=== PATIENT | female | born 1940 | race Caucasian/White ===

== ENCOUNTER 2020-06-11 13:53 | Emergency (ER) | payer MEDICARE ==
[2020-06-11] MEDS ORDERED: Acetaminophen-Codeine 300-30mg TAB PO STA (14:15)
--- NOTE | 2020-06-11 14:17 | ED ---
Fall HPI - General Chief Complaint: Fall Stated Complaint: Fall Time Seen by Provider: 06/11/20 13:57 Source: patient, EMS Mode of arrival: EMS - History of Present Illness Initial Comments: 80-year-old female patient presents to the emergency department today for evaluation of right hip pain after experiencing a fall. Patient states prior to arrival she was walking when she tripped and fell landing on her buttocks of most of the weight on the right side. Patient denies hitting her head or losing consciousness with the fall. She denies any neck or back pain. Denies numbness or tingling to the lower extremities. Patient states she has had surgery on the left hip in the past this is not bothering her. Patient denies any headache, neck pain, chest pain, shortness of breath, dizziness, weakness, abdominal pain, nausea, vomiting, or difficulties with bowel movements or urination. - Related Data Home Medications Medication Instructions Recorded Confirmed Levothyroxine Sodium [Synthroid] 75 mcg PO DAILY 11/16/13 06/11/20 Losartan Potassium 100 mg PO DAILY 11/16/13 06/11/20 Metoprolol Tartrate [Lopressor] 50 mg PO BID 11/16/13 06/11/20 Acetaminophen Tab [Tylenol] 650 mg PO DAILY PRN 06/11/20 06/11/20 Aspirin [Adult Low Dose Aspirin EC] 162 mg PO DAILY 06/11/20 06/11/20 Atorvastatin [Lipitor] 40 mg PO DAILY 06/11/20 06/11/20 Ergocalciferol [Vitamin D2 50,000 unit PO [id number] 06/11/20 06/11/20 (DRISDOL)] Insulin Detemir [Levemir Flextouch] 20 unit SQ HS 06/11/20 06/11/20 Insulin Lispro [humaLOG Kwikpen] 2 unit SQ QAM 06/11/20 06/11/20 Latanoprost/Pf [Latanoprost 0.005% 1 drop BOTH EYES HS 06/11/20 06/11/20 Eye Drop] glipiZIDE [Glucotrol] 10 mg PO DAILY 06/11/20 06/11/20 metFORMIN HCL 500 mg PO BID 06/11/20 06/11/20 Allergies Allergy/AdvReac Type Severity Reaction Status Date / Time No Known Allergies Allergy Verified 11/24/20 15:22 Review of Systems ROS Statement: Those systems with pertinent positive or pertinent negative responses have been documented in the HPI. ROS Other: All systems not noted in ROS Statement are negative. Past Medical History Past Medical History: Coronary Artery Disease (CAD), Heart Failure, Hyperlipidemia, Hypertension, Myocardial Infarction ([place]), Osteoarthritis (OA), Thyroid Disorder History of Any Multi-Drug Resistant Organisms: None Reported Past Surgical History: Heart Catheterization With Stent, Orthopedic Surgery Smoking Status: Never smoker Past Alcohol Use History: None Reported Past Drug Use History: None Reported General Exam Limitations: no limitations General appearance: alert, in no apparent distress, other (This is a well- developed, well-nourished adult female patient in no acute distress. Vital signs upon presentation are temperature 98.3F, pulse 73, respirations 16, blood pressure 186/76, pulse ox 98% on room air.) Eye exam: Present: normal appearance, PERRL, EOMI. Absent: scleral icterus, conjunctival injection, periorbital swelling ENT exam: Present: normal exam, normal oropharynx, mucous membranes moist Neck exam: Present: normal inspection, full ROM, other (Nontender, no step-off, no deformity to firm midline palpation of the posterior cervical spine. Full range of motion without pain or limitation.). Absent: tenderness, meningismus, lymphadenopathy Respiratory exam: Present: normal lung sounds bilaterally. Absent: respiratory distress, wheezes, rales, rhonchi, stridor Cardiovascular Exam: Present: regular rate, normal rhythm, normal heart sounds. Absent: systolic murmur, diastolic murmur, rubs, gallop, clicks GI/Abdominal exam: Present: soft, normal bowel sounds. Absent: distended, tenderness, guarding, rebound, rigid Extremities exam: Present: normal inspection, full ROM, normal capillary refill, other (Skin to the lower extremities is pink, warm, dry. Cap refills less than 3 seconds. Pedal and posttibial pulses are 2+ and equal bilaterally). Absent: tenderness, pedal edema, joint swelling, calf tenderness Neurological exam: Present: alert, oriented X3, CN II-XII intact Psychiatric exam: Present: normal affect, normal mood Skin exam: Present: warm, dry, intact, normal color. Absent: rash Course Vital Signs 06/11/20 06/11/20 06/11/20 14:00 15:42 17:12 Temperature 98.3 F 98.2 F 98.2 F Pulse Rate 73 73 70 Respiratory 16 14 14 Rate Blood Pressure 186/76 170/71 168/72 O2 Sat by Pulse 98 98 98 Oximetry Medical Decision Making - Medical Decision Making 80-year-old female patient presents to the emergency department today for evaluation of right groin and hip pain after experiencing a fall earlier today. Physical examination is unremarkable. There is no shortening or rotation of the leg. Neurovascular status was intact. Patient denied any head injury or neck or back pain. Initial x-ray was negative for any sign of fracture. Patient was able to bear weight though reported pain when she attempted to swing her leg forward to walk so we did perform computed tomography scan of the pelvis. This did show a nondisplaced fracture of the inferior pubic ramus on the right side. Patient does report improved symptoms with pain medication. She is able to bear weight and ambulate. She does have access to a walker at home. She does agree to being discharged home at this time. She is instructed to follow-up with marketing content specialist for further evaluation as soon as possible. She'll be provided with copies of her images. Return parameters were discussed in detail. She verbalizes understanding and agrees with this plan. - Radiology Data Radiology results: report reviewed, image reviewed Two-view of the right hip and one view of the pelvis is obtained. Report was reviewed in its entirety. Impression by Dr. Sampson shows osteopenia. No displaced fracture seen. Patient nonweightbearing, MRI can provide more sensitive evaluation of the right hip. CT pelvis without contrast was obtained. Report is reviewed in its entirety. Impression by Dr. Vasquez shows virtually nondisplaced fracture involving the anterior pubic ramus on the right. Disposition Clinical Impression: Fracture of right inferior pubic ramus Disposition: HOME SELF-CARE Condition: Good Instructions (If sedation given, give patient instructions): Pelvic Fracture (ED), Fall Prevention for Older Adults (ED) Additional Instructions: Use walker to ambulate. Follow up with marketing content specialist for further evaluation. Return to the emergency department for any new, worsening, or concerning symptoms. Is patient prescribed a controlled substance at d/c from ED?: No Referrals: Kyara Stockton MD [Primary Care Provider] - 1-2 days Santi Tapia MD [STAFF PHYSICIAN] - 1-2 days Time of Disposition: 16:39
--- NOTE | 2020-06-11 15:09 | XR ---
EXAMINATION TYPE: AP view pelvis and 2 views right hip DATE OF EXAM: 06/11/2020 COMPARISON: NONE HISTORY: 80-year-old female fall and right hip/groin pain FINDINGS: Partially visualized left total hip arthroplasty. Osteopenia. Minimal marginal spurring at the harbor department manager ior right femoral head neck junction. No acute fracture, subluxation, dislocation. IMPRESSION: Osteopenia. No displaced fracture seen. If patient nonweightbearing, MRI can provide more sensitive e valuation of the right hip.
[2020-06-11 15:45] VITALS: RESP 14; TEMP 98.2
--- NOTE | 2020-06-11 16:25 | CT ---
EXAMINATION TYPE: CT pelvis wo con DATE OF EXAM: 06/11/2020 COMPARISON: None HISTORY: Fall, right hip and groin pain. CT DLP: 298.2 mGycm Automated exposure control for dose reduction was used. Unenhanced CT of the pelvis was performed wit h bone and soft tissue window settings submitted. FINDINGS: No evidence for fracture of the proximal right femur acetabulum. There is a virtually nondisplaced fr acture involving the inferior pubic ramus on the right. There is chronic appearing deformity of the l eft inferior pubic ramus and left ischium. Left hip prosthesis is noted to be in place. IMPRESSION: VIRTUALLY NONDISPLACED FRACTURE INVOLVING THE INFERIOR PUBIC RAMUS ON THE RIGHT.
[2020-06-11 17:15] VITALS: BP 168/72; PULSE 70
== END 2020-06-11 17:15 | disposition home or self-care (01) ==
LOC: EC 13:53
DX: S32.501A Unspecified fracture of right pubis, initial encounter for closed fracture (principal); I11.0 Hypertensive heart disease with heart failure; I50.9 Heart failure, unspecified; E07.9 Disorder of thyroid, unspecified; M19.90 Unspecified osteoarthritis, unspecified site; E78.5 Hyperlipidemia, unspecified; I25.10 Atherosclerotic heart disease of native coronary artery without angina pectoris; I25.2 Old myocardial infarction; Z79.890 Hormone replacement therapy; Z79.899 Other long term (current) drug therapy; Z79.4 Long term (current) use of insulin; Z79.82 Long term (current) use of aspirin; Z95.5 Presence of coronary angioplasty implant and graft; W01.0XXA Fall on same level from slipping, tripping and stumbling without subsequent striking against object, initial encounter; Y93.01 Activity, walking, marching and hiking
CPT/HCPCS: 72192; 73502; 99284

== ENCOUNTER 2022-01-24 21:12 | Inpatient (IN) | payer MEDICARE ==
[2022-01-24 21:24] LABS: Glucose,Whole Blood 162 mg/dL (70-110)
--- NOTE | 2022-01-24 21:56 | ED ---
Fall HPI - General Chief Complaint: Fall Stated Complaint: Fall Time Seen by Provider: 01/24/22 21:17 Source: patient, RN notes reviewed, old records reviewed Mode of arrival: EMS Limitations: no limitations - History of Present Illness Initial Comments: This is a 81-year-old female to the ER today. Patient presents to the emergency department today for evaluation she presents after a fall. Patient initially had left hip pain and was unable to get up and ambulate. Patient states currently she has no pain is able to move her legs and her legs feel better. A she has history of heart disease history of prior orthopedic surgery. Patient has had prior broken hip MD Complaint: fall -: hour(s) Fall From: standing When Fall Occurred: [address] AGENT Fall Witnessed: no Place Fall Occurred: home Loss of Consciousness: none Prolonged Down Time?: no Symptoms Prior to Fall: none, other Location - Extremities: Left: Thigh Severity: moderate Severity scale (1-10): 3 Quality: sharp Context: tripped/slipped Associated Symptoms: denies - Related Data Home Medications Medication Instructions Recorded Confirmed Levothyroxine Sodium [Synthroid] 75 mcg PO DAILY 11/16/13 06/11/20 Losartan Potassium 100 mg PO DAILY 11/16/13 06/11/20 Metoprolol Tartrate [Lopressor] 50 mg PO BID 11/16/13 06/11/20 Acetaminophen Tab [Tylenol] 650 mg PO DAILY PRN 06/11/20 06/11/20 Aspirin [Adult Low Dose Aspirin EC] 162 mg PO DAILY 06/11/20 06/11/20 Atorvastatin [Lipitor] 40 mg PO DAILY 06/11/20 06/11/20 Ergocalciferol [Vitamin D2 50,000 unit PO [id number] 06/11/20 06/11/20 (DRISDOL)] Insulin Detemir [Levemir Flextouch] 20 unit SQ HS 06/11/20 06/11/20 Insulin Lispro [humaLOG Kwikpen] 2 unit SQ QAM 06/11/20 06/11/20 Latanoprost/Pf [Latanoprost 0.005% 1 drop BOTH EYES HS 06/11/20 06/11/20 Eye Drop] glipiZIDE [Glucotrol] 10 mg PO DAILY 06/11/20 06/11/20 metFORMIN HCL 500 mg PO BID 06/11/20 06/11/20 Allergies Allergy/AdvReac Type Severity Reaction Status Date / Time No Known Allergies Allergy Verified 06/11/20 15:22 Review of Systems ROS Statement: Those systems with pertinent positive or pertinent negative responses have been documented in the HPI. ROS Other: All systems not noted in ROS Statement are negative. Past Medical History Past Medical History: Coronary Artery Disease (CAD), Heart Failure, Hyperlipidemia, Hypertension, Myocardial Infarction ([place]), Osteoarthritis (OA), T hyroid Disorder History of Any Multi-Drug Resistant Organisms: None Reported Past Surgical History: Heart Catheterization With Stent, Orthopedic Surgery Past Psychological History: No Psychological Hx Reported Smoking Status: Never smoker Past Alcohol Use History: None Reported Past Drug Use History: None Reported General Exam Limitations: no limitations General appearance: alert, in no apparent distress Head exam: Present: atraumatic, normocephalic, normal inspection Eye exam: Present: normal appearance, PERRL, EOMI. Absent: scleral icterus, conjunctival injection, periorbital swelling ENT exam: Present: normal exam, mucous membranes moist Neck exam: Present: normal inspection. Absent: tenderness, meningismus, lymphadenopathy Respiratory exam: Present: normal lung sounds bilaterally. Absent: respiratory distress, wheezes, rales, rhonchi, stridor Cardiovascular Exam: Present: regular rate, normal rhythm, normal heart sounds. Absent: systolic murmur, diastolic murmur, rubs, gallop, clicks GI/Abdominal exam: Present: soft, normal bowel sounds. Absent: distended, tenderness, guarding, rebound, rigid Extremities exam: Present: normal inspection, full ROM, normal capillary refill. Absent: tenderness, pedal edema, joint swelling, calf tenderness Back exam: Present: normal inspection Neurological exam: Present: alert, oriented X3, CN II-XII intact Psychiatric exam: Present: normal affect, normal mood Skin exam: Present: warm, dry, intact, normal color. Absent: rash Course Vital Signs 01/24/22 21:19 Temperature 98.6 F Pulse Rate 68 Respiratory 16 Rate Blood Pressure 204/87 O2 Sat by Pulse 98 Oximetry - Reevaluation(s) Reevaluation #1: 01/24/22 22:03 Medical record is reviewed Reevaluation #2: 01/24/22 22:03 Patient is not requiring any pain medication currently Reevaluation #3: 01/24/22 22:51 Patient informed of results, questions are answered Reevaluation #4: 01/24/22 22:51 Patient able to stand and ambulate Medical Decision Making - Medical Decision Making 81 female DF status post fall. Fall with left hip pain, no traumatic injury. Left hip contusion, patient requiring pain control can be discharged - Lab Data Lab Results 01/24/22 Range/Units 21:22 POC Glucose (mg/dL) 162 H (70-110) mg/dL POC Glu Assembly Riveter ID Arlen Randle - Radiology Data Radiology results: report reviewed (Chest x-ray and x-ray pelvis with left hip negative for traumatic injury), image reviewed Disposition Clinical Impression: Fall, Contusion of left hip Disposition: HOME SELF-CARE Condition: Good Instructions (If sedation given, give patient instructions): Fall Prevention for Older Adults (ED), Hip Pain (ED) Is patient prescribed a controlled substance at d/c from ED?: No Referrals: Kyara Stockton MD [Primary Care Provider] - 1-2 days Time of Disposition: 22:50
--- NOTE | 2022-01-24 22:39 | XR ---
EXAMINATION TYPE: XR Hip LT and AP Pelvis DATE OF EXAM: 01/24/2022 COMPARISON: 11/13/2013 HISTORY: Pain TECHNIQUE: 3 views FINDINGS: There is left hip prosthesis. Components appear in good position. Acetabulum appears intact . There is old fractures of the right and left pubic bones. IMPRESSION: No acute abnormality of the pelvis and left hip.
--- NOTE | 2022-01-24 22:40 | XR ---
EXAMINATION TYPE: XR chest 1V DATE OF EXAM: 01/24/2022 COMPARISON: 11/13/2013 HISTORY: Fall. Pain TECHNIQUE: FINDINGS: Heart is normal. Lungs are clear of infiltrate. No heart failure. There are no hilar masses . Thoracic aorta is atheromatous. There are sternal wires. IMPRESSION: No active cardiopulmonary disease. Normal heart. No change.
[2022-01-24] MEDS ORDERED: SODIUM CHLORIDE 0.9% 1,000 ML IV STA (23:49)
[2022-01-24] MEDS ORDERED: SODIUM CHLORIDE 0.9% 500 ML 500 ML IV STA (23:49)
[2022-01-25 00:43] LABS: Glucose,Whole Blood 168 mg/dL (70-110)
--- NOTE | 2022-01-25 00:50 | ED ---
Medical Decision Making - Medical Decision Making 81 female DF after fall was unable to amply after fall was brought to ER for evaluation and left hip pain. Pain resolved upon arrival to the emergency department can weakness and inability to amply here in the ER patient be admitted for PTOT or further evaluation of inability to currently ambulate - Lab Data Lab Results 01/24/22 01/25/22 Range/Units 21:22 00:40 POC Glucose (mg/dL) 162 H 168 H (70-110) mg/dL POC Glu Helicopter Pilot ID Arlen Randle Jose Lord - EKG Data -: EKG Interpreted by Me (EKG sinus rhythm 72 CO 151 QRS 93 QTC 426) - Radiology Data Radiology results: report reviewed (Chest x-ray x-ray pelvis left hip negative for traumatic injury), image reviewed Disposition Clinical Impression: Fall, Contusion of left hip, Weakness, Inability to ambulate due to hip Disposition: ADMITTED IP TO THIS HOSP Condition: Good Instructions (If sedation given, give patient instructions): Fall Prevention for Older Adults (ED), Hip Pain (ED) Is patient prescribed a controlled substance at d/c from ED?: No Referrals: Kyara Stockton MD [Primary Care Provider] - 1-2 days
[2022-01-25 00:58] LABS: Basophils # (A) 0.1 k/uL (0-0.2); Basophils % (A) 1 %; Eosinophils # (A) 0.1 k/uL (0-0.7); Eosinophils % (A) 2 %; HCT 32.1 % (34.0-46.0); HGB 11.2 gm/dL (11.4-16.0); Lymphocytes # (A) 1.6 k/uL (1.0-4.8); Lymphocytes % (A) 21 %; MCH 31.7 pg (25.0-35.0); MCHC 35.1 g/dL (31.0-37.0); MCV 90.4 fL (80.0-100.0); Mean Platelet Volume 7.4; Monocytes # (A) 0.3 k/uL (0-1.0); Monocytes % (A) 4 %; Neutrophils # (A) 5.7 k/uL (1.3-7.7); Neutrophils % (A) 72 %; Platelet Count 288 k/uL (150-450); RBC 3.55 m/uL (3.80-5.40); RDW 13.2 % (11.5-15.5); WBC 7.9 k/uL (3.8-10.6)
[2022-01-25] MEDS ORDERED: NALOXONE 0.4 MG/ML 1 ML VIAL IV PRN (00:59)
[2022-01-25] MEDS ORDERED: ONDANSETRON 4 MG/2 ML VIAL IVP PRN (00:59)
[2022-01-25 01:06] LABS: Partial Thromboplastin Time 24.3 sec (22.0-30.0); Prothrombin Time 10.8 sec (9.0-12.0)
[2022-01-25 01:09] LABS: Albumin 4.3 g/dL (3.5-5.0); Magnesium 1.5 mg/dL (1.6-2.3); Phosphorus 3.2 mg/dL (2.5-4.5); Total Bilirubin 1.2 mg/dL (0.2-1.3); Total Protein 7.7 g/dL (6.3-8.2)
[2022-01-25 01:14] LABS: Potassium 4.2 mmol/L (3.5-5.1)
[2022-01-25 04:35] LABS: Appearance,Urine Clear (Clear); Bilirubin,Urine Negative (Negative); Blood,Urine Trace (Negative); Color,Urine Light Yellow; Glucose,Urine (UA) 1+ (Negative); Ketones,Urine 1+ (Negative); Leukocyte Esterase,Urine Negative (Negative); Nitrite,Urine Negative (Negative); PH, Urine 6.5 (5.0-8.0); Protein,Urine 2+ (Negative); RBC,Urine 1 /hpf (0-5); Specific Gravity,Urine 1.017 (1.001-1.035); Squamous Epithelial Cell,Urine <1 /hpf (0-4); Urobilinogen,Urine <2.0 mg/dL (<2.0); WBC,Urine 2 /hpf (0-5)
[2022-01-25 06:47] LABS: Glucose,Whole Blood 164 mg/dL (70-110)
[2022-01-25 11:03] LABS: Glucose,Whole Blood 214 mg/dL (70-110)
[2022-01-25] MEDS ORDERED: METOPROLOL TARTRATE 50 MG TAB PO SCH (14:00)
[2022-01-25] MEDS: SODIUM CHLORIDE 0.9% 1,000 ML IV SCH ×3 (14:17→18:09)
--- NOTE | 2022-01-25 15:18 | P.HPIM ---
History of Present Illness H&P Date: 01/25/22 History of presenting illness: 81 years old Female who has past medical history significant for hypertension hyperlipidemia hypothyroidism diabetes mellitus glaucoma osteoarthritis osteoporosis, presented to the emergency department after she experienced a fall, no actual syncopal episodes reported, apparently she was going to the bathroom and suddenly had dizziness and she was confused and was not sure where she was, she also told me that she felt her vision was darkened but she is very clear that she didn't lose consciousness, patient fell on the left side, patient after fall was unable to get up and ambulate. She had left-sided hip pain. Patient later on became better pain improved and she was able to move her legs. Patient was seen in emergency department hip x-ray showed no acute abnormalities in the pelvis and the left hip, chest x-ray showed no acute cardio pulmonary process, she did complain about some left upper arm weakness as well to the nursing staff therefore computed tomography scan was done which was negative for any acute finding. Patient was admitted to hospital medicine service under observation for post fall evaluation physical therapy evaluation discharge planning Also please note the daughter bedside reported that patient is having some issues with memory and confusion, she lives with her who has dementia and she is maintained caregiver. Overall poor appetite and nutritional status not eating well, also her sleep is compromised Review of systems. 14 point review of system was done in detail and is negative except as above in HPI. Physical examination General: non toxic, no acute distress, alert oriented to time place and person Head: atraumatic, normocephalic, symmetric Eyes: no lid lesion], anicteric sclera Mouth: no lip lesion, mucus membranes moist Cardiovascular: S1S2 reg rate and rhythm, no murmur, no gallop Lungs: Bilateral equal air entry, no wheezing no rhonchi no crackles. Abdominal: soft, nontender to palpation, no guarding, no appreciable organomegaly Ext: no gross muscle atrophy, no edema extremities warm to suppose a positive Neuro: Alert oriented to time place and person, exam grossly nonfocal Psych: Mood and affect appropriate, patient not so certain Skin exam: No rashes no jaundice. Assessment and plan Presyncopal episode and fall No actual loss of consciousness reported the patient does report feeling dizzy suddenly confused and darkening of her vision and she lost her balance and fell down she doesn't report any loss of consciousness Head CT was negative We'll check echo carotid ultrasound MRI had, check hemoglobin A1c TSH lipid panel B12 folate We'll request neurology for evaluation Continue cardiac telemetry Left-sided weakness Post fall, patient fell on the left side very low suspicious for CVA Neurological workup as mentioned above Patient at home is on aspirin and statin Acute kidney injury versus chronic kidney disease Baseline unclear, patient creatinine slightly elevated urine showing proteinuria, patient has history of diabetes Check urine electrolytes and protein, check urine ultrasound Left hip pain Hip x-ray negative, pain started after fall Continue pain management PTOT evaluation case management consultation Hypertension Continue metoprolol Hyperlipidemia Continue atorvastatin Hypothyroidism Continue levothyroxine Glaucoma Continue latanoprost drops CODE STATUS: Full code DVT prophylaxis: Subcutaneous heparin Discharge planning: Pending PTOT evaluation may or may not need subacute rehab Past Medical History Past Medical History: Coronary Artery Disease (CAD), Heart Failure, Hyperlipidemia, Hypertension, Myocardial Infarction ([place]), Osteoarthritis ([place]), Thyroid Disorder Last Myocardial Infarction Date:: 2010 History of Any Multi-Drug Resistant Organisms: None Reported Past Surgical History: Coronary Bypass/CABG, Orthopedic Surgery Past Anesthesia/Blood Transfusion Reactions: No Reported Reaction Past Psychological History: No Psychological Hx Reported Smoking Status: Former smoker Past Alcohol Use History: None Reported Additional Past Alcohol Use History / Comment(s): Pt states she quit smoking in 2010 before she underwent a CABG procedure Past Drug Use History: None Reported Medications and Allergies Home Medications Medication Instructions Recorded Confirmed Type Losartan Potassium 100 mg PO DAILY@1400 11/16/13 01/25/22 History Metoprolol Tartrate [Lopressor] 100 mg PO DAILY@1400 11/16/13 01/25/22 History Aspirin [Adult Low Dose Aspirin EC] 162 mg PO HS 06/11/20 01/25/22 History Atorvastatin [Lipitor] 40 mg PO HS 06/11/20 01/25/22 History Insulin Detemir [Levemir Flextouch] 24 unit SQ HS 06/11/20 01/25/22 History Insulin Lispro [humaLOG Kwikpen] See Protocol SQ AC-TID PRN 06/11/20 01/25/22 History Latanoprost/Pf [Latanoprost 0.005% 1 drop BOTH EYES HS 06/11/20 01/25/22 History Eye Drop] glipiZIDE [Glucotrol] 10 mg PO DAILY 06/11/20 01/25/22 History metFORMIN HCL 1,500 mg PO DAILY 06/11/20 01/25/22 History Levothyroxine Sodium [Synthroid] 125 mcg PO DAILY 01/25/22 01/25/22 History Allergies Allergy/AdvReac Type Severity Reaction Status Date / Time No Known Allergies Allergy Verified 01/25/22 11:30 Physical Exam Vitals: Vital Signs Temp Pulse Pulse Resp BP BP Pulse Ox 01/25/22 11:05 98 F 74 15 181/67 96 01/25/22 04:58 98.4 F 67 16 185/67 98 01/25/22 01:57 70 16 172/77 98 01/24/22 23:26 85 16 185/93 95 01/24/22 21:19 98.6 F 68 16 204/87 98 Intake and Output 01/25/22 01/25/22 01/25/22 06:59 14:59 22:59 Other: Voiding Method External Catheter External Catheter Weight 59 kg Results CBC & Chem 7: 01/25/22 00:44 01/25/22 00:28 Labs: Abnormal Lab Results - Last 24 Hours (Table) 01/24/22 01/25/22 01/25/22 Range/Units 21:22 00:28 00:40 RBC (3.80-5.40) m/uL Hgb (11.4-16.0) gm/dL Hct (34.0-46.0) % Chloride 108 H (98-107) mmol/L BUN 18 H (7-17) mg/dL Creatinine 1.09 H (0.52-1.04) mg/dL Glucose 152 H (74-99) mg/dL POC Glucose (mg/dL) 162 H 168 H (70-110) mg/dL Magnesium 1.5 L (1.6-2.3) mg/dL Urine Protein (Negative) Urine Glucose (UA) (Negative) Urine Ketones (Negative) Urine Blood (Negative) 01/25/22 01/25/22 01/25/22 Range/Units 00:44 04:23 06:45 RBC 3.55 L (3.80-5.40) m/uL Hgb 11.2 L (11.4-16.0) gm/dL Hct 32.1 L (34.0-46.0) % Chloride (98-107) mmol/L BUN (7-17) mg/dL Creatinine (0.52-1.04) mg/dL Glucose (74-99) mg/dL POC Glucose (mg/dL) 164 H (70-110) mg/dL Magnesium (1.6-2.3) mg/dL Urine Protein 2+ H (Negative) Urine Glucose (UA) 1+ H (Negative) Urine Ketones 1+ H (Negative) Urine Blood Trace H (Negative) 01/25/22 Range/Units 11:00 RBC (3.80-5.40) m/uL Hgb (11.4-16.0) gm/dL Hct (34.0-46.0) % Chloride (98-107) mmol/L BUN (7-17) mg/dL Creatinine (0.52-1.04) mg/dL Glucose (74-99) mg/dL POC Glucose (mg/dL) 214 H (70-110) mg/dL Magnesium (1.6-2.3) mg/dL Urine Protein (Negative) Urine Glucose (UA) (Negative) Urine Ketones (Negative) Urine Blood (Negative) Thrombosis Risk Factor Assmnt - Choose All That Apply Any of the Below Risk Factors Present?: No Other Risk Factors: Yes Each Risk Factor Represents 3 Points: Age 75 years or older Other congenital or acquired thrombophilia - If yes, enter type in comment: No Thrombosis Risk Factor Assessment Total Risk Factor Score: 3 Thrombosis Risk Factor Assessment Level: Moderate Risk
--- NOTE | 2022-01-25 15:23 | CT ---
EXAMINATION TYPE: CT brain wo con DATE OF EXAM: 01/25/2022 COMPARISON: 12/16/2010 HISTORY: neuro deficit CT DLP: 1079.5 mGycm Automated exposure control for dose reduction was used. There is cerebral cortical atrophy. There is moderate hypodensity in the periventricular white matter . There is no mass effect nor midline shift. No sign of intracranial hemorrhage. The calvarium is int act. Skull base is intact. IMPRESSION: Cerebral atrophy. Chronic small vessel ischemia. There is progression of disease compared to old exam .
--- NOTE | 2022-01-25 16:12 | XR ---
EXAMINATION TYPE: XR shoulder complete LT DATE OF EXAM: 01/25/2022 COMPARISON: NONE HISTORY: Arm weakness TECHNIQUE: 3 views FINDINGS: Glenohumeral joint is intact. I see no fracture or dislocation. The scapula appears intact. IMPRESSION: No acute abnormality of the left shoulder.
[2022-01-25 17:04] LABS: Glucose,Whole Blood 155 mg/dL (70-110)
[2022-01-25] MEDS ORDERED: hydrALAZINE HCL 25 MG TAB PO STA (17:58)
[2022-01-25] MEDS: carvediloL 12.5 MG TAB PO SCH (18:05)
--- NOTE | 2022-01-25 18:50 | US ---
EXAMINATION TYPE: US carotid duplex BILAT DATE OF EXAM: 01/25/2022 COMPARISON: NONE CLINICAL HISTORY: CVA. Patient states no HTN. Poor historian. Difficult exam due to patient unable to turn head to reach neck EXAM MEASUREMENTS: RIGHT: Peak Systolic Velocity (PSV) cm/sec ----- Right CCA: 52.3 ----- Right ICA: 76.8 ----- Right ECA: 74.9 ICA/CCA ratio: 1.5 RIGHT: End Diastole cm/sec ----- Right CCA: 6.0 ----- Right ICA: 18.6 ----- Right ECA: 74.9 LEFT: Peak Systolic Velocity (PSV) cm/sec ----- Left CCA: 78.8 ----- Left ICA: 81.2 ----- Left ECA: 129.1 ICA/CCA ratio: 1.0 LEFT: End Diastole cm/sec ----- Left CCA: 6.3 ----- Left ICA: 15.3 ----- Left ECA: 0.0 VERTEBRALS (direction of flow): Right Vertebral: Antegrade Left Vertebral: Antegrade Rhythm: Normal Plaque in bilateral CCA and bulbs. No significant stenosis. Wall thickening. IMPRESSION: There is antegrade flow in the vertebral arteries. The images and measurement suggests l ess than 30% stenosis in both internal carotid arteries. Criteria for Assigning % of Stenosis / Diameter reduction (Estimation based on the indirect measurements of the internal carotid artery velocities (ICA PSV). 1. Normal (no stenosis)=ICA PSV < 125 cm/s: ratio < 2.0: ICA EDV<40 cm/s. 2. Less than 50% stenosis=ICA PSV < 125 cm/s: ratio < 2.0: ICA EDV<40 cm/s. 3. 50 to 69% stenosis=ICA PSV of 125 to 230 cm/s: ration 2.0 ? 4.0: ICA EDV 40-100 cm/s. 4. Greater than 70% stenosis to near occlusion= ICA PSV > 230 cm/s: ratio > 4.0: ICA EDV > 100 cm/s. 5. Near occlusion= ICA PSV velocities may be low or undetectable: variable ratio and ICA EDV. 6. Total occlusion=unable to detect flow.
--- NOTE | 2022-01-25 18:51 | US ---
EXAMINATION TYPE: US kidneys/renal and bladder DATE OF EXAM: 01/25/2022 COMPARISON: NONE CLINICAL HISTORY: RL. abnormal labs EXAM MEASUREMENTS: Right Kidney: 11.0 x 4.5 x 4.5 cm Left Kidney: 9.3 x 4.7 x 5.0 cm Right Kidney: No hydronephrosis or masses seen Left Kidney: limited visualization, no prominent masses or lesions seen Bladder: Distended, anechoic Bilateral Jets not seen INCIDENTAL FINDING: Enlarged GB with stones, sludge and wall thickening IMPRESSION: No evidence of renal mass or obstruction. Cholelithiasis is noted. Large gallbladder with wall thicke anselmo. Acute and chronic cholecystitis is suspected.
[2022-01-25 20:15] LABS: Glucose,Whole Blood 213 mg/dL (70-110)
[2022-01-25] MEDS ORDERED: ATORVASTATIN 40 MG TAB PO SCH (21:00)
[2022-01-25] MEDS ORDERED: hydrALAZINE HCL 10 MG TAB PO SCH (21:00)
[2022-01-25] MEDS ORDERED: ASPIRIN 81 MG PO SCH (21:00)
[2022-01-26] MEDS: LATANOPROST 0.005% OPHTH DROPS 2.5 ML BTL BOTH EYES SCH ×2 (00:53→20:43)
[2022-01-26] MEDS: SODIUM CHLORIDE 0.9% 1,000 ML IV SCH ×4 (00:55→22:32)
[2022-01-26] MEDS: INSULIN DETEMIR (LEVEMIR) 100 UNIT/ML SYR SQ SCH ×2 (01:01→20:42)
[2022-01-26] MEDS: LEVOTHYROXINE 125 MCG TAB PO SCH (06:07)
[2022-01-26] MEDS: carvediloL 12.5 MG TAB PO SCH ×2 (06:24→16:48)
[2022-01-26 06:55] LABS: Glucose,Whole Blood 186 mg/dL (70-110)
[2022-01-26] MEDS: amLODIPine 5 MG TAB PO SCH (09:39)
[2022-01-26 10:39] LABS: Basophils # (A) 0.03 X 10*3/uL (0.00-0.10); Basophils % (A) 0.4 %; Eosinophils # (A) 0.12 X 10*3/uL (0.04-0.35); Eosinophils % (A) 1.8 %; HGB 9.5 g/dL (12.0-15.0); Immature Grans, Automated 0.1 %; Lymphocytes # (A) 0.87 X 10*3/uL (0.90-5.00); MCH 30.5 pg (27.0-32.0); MCHC 33.9 g/dL (32.0-37.0); Mean Platelet Volume 9.8 fL (9.5-12.2); Monocytes # (A) 0.42 X 10*3/uL (0.20-1.00); Monocytes % (A) 6.3 %; NRBC Per 100 WBC 0 /100 WBCS (0.0-0.0); Neutrophils # (A) 5.26 X 10*3/uL (1.80-7.70); Neutrophils % (A) 78.4 %; Platelet Count 248 X 10*3/uL (140-440); RBC 3.11 X 10*6/uL (4.10-5.20); RDW 12.8 % (11.5-14.5); WBC 6.71 X 10*3/uL (4.50-10.00)
[2022-01-26 11:12] LABS: ALT 14 U/L (8-44); AST 24 U/L (13-35); Albumin 3.4 g/dL (3.8-4.9); Albumin/Globulin Ratio 1.42 (1.60-3.17); Alkaline Phosphatase 48 U/L (41-126); BUN/Creat Ratio 12.22 Ratio (12.00-20.00); Blood Urea Nitrogen 13.2 mg/dL (9.0-27.0); Calcium 8.3 mg/dL (8.7-10.3); Carbon Dioxide 20.2 mmol/L (20.0-27.5); Chloride 111 mmol/L (96-109); Chol/HDL Ratio 4.33 Ratio; Globulin 2.4 g/dL (1.6-3.3); Glucose 185 mg/dL (70-110); LDL Cholesterol,Calculated 112.2 mg/dL (0.0-131.0); Magnesium 1.5 mg/dL (1.5-2.4); Non-African American GFR(CKD) 47.4 (60.0-200.0); Phosphorus 2.3 mg/dL (2.4-5.1); Potassium 3.3 mmol/L (3.5-5.5); Sodium 142 mmol/L (135-145); Total Protein 5.8 g/dL (6.2-8.2)
[2022-01-26 11:43] LABS: Glucose,Whole Blood 245 mg/dL (70-110)
--- NOTE | 2022-01-26 11:54 | P.PN ---
Subjective Patient was examined at bedside not complaining of any new symptomatology during my examination. Collateral information was obtained by daughter present at bedside. Patient is having significant pain and weakness in the left upper extremity however no other focal deficits noted. Daughter also states of the patient does have some shuffling gait which she has noticed. There is also concerned regarding onset of dementia is a patient is forgetting her day-to-day activities as per family. Objective - Vital Signs Vital signs: Vital Signs Temp 98.3 F 01/26/22 11:37 Pulse 63 01/26/22 11:37 Resp 17 01/26/22 11:37 BP 101/40 01/26/22 11:37 Pulse Ox 98 01/26/22 11:37 FiO2 Intake & Output 01/25/22 01/26/22 01/26/22 18:59 06:59 18:59 Other: Voiding Method External Catheter External Catheter External Catheter # Voids 2 4 1 - Exam Physical examination General: non toxic, no acute distress, alert oriented to time place and person Head: atraumatic, normocephalic, symmetric Cardiovascular: S1S2 reg rate and rhythm, no murmur, no gallop Lungs: Bilateral equal air entry, no wheezing no rhonchi no crackles. Abdominal: soft, nontender to palpation, no guarding, no appreciable organomegaly Ext: no gross muscle atrophy, no edema extremities warm to suppose a positive Neuro: Patient has 5 out of 5 strength in all extremities except for left upper extremity Left upper extremity 2 out of 5 No sensory optimal denoted Cranial 2-12 grossly intact slightly decreased left shoulder shrug Psych: Mood and affect appropriate, patient not so certain Skin exam: No rashes no jaundice. - Labs CBC & Chem 7: 01/26/22 07:16 01/26/22 07:16 Labs: Abnormal Lab Results - Last 24 Hours (Table) 01/25/22 01/25/22 01/26/22 Range/Units 17:03 20:13 06:50 RBC (4.10-5.20) X 10*6/uL Hgb (12.0-15.0) g/dL Hct (37.2-46.3) % Lymphocytes # (0.90-5.00) X 10*3/uL Potassium (3.5-5.5) mmol/L Chloride (96-109) mmol/L Est GFR (CKD-EPI)AfAm (60.0-200.0) Est GFR (CKD-EPI)NonAf (60.0-200.0) Glucose (70-110) mg/dL POC Glucose (mg/dL) 155 H 213 H 186 H (70-110) mg/dL Hemoglobin A1c (0.0-6.0) % Calcium (8.7-10.3) mg/dL Phosphorus (2.4-5.1) mg/dL Total Protein (6.2-8.2) g/dL Albumin (3.8-4.9) g/dL Albumin/Globulin Ratio (1.60-3.17) g/dL Vitamin B12 (200.0-944.0) pg/mL Vitamin D 25-Hydroxy (30.0-100.0) ng/mL 01/26/22 01/26/22 01/26/22 Range/Units 07:16 07:16 07:16 RBC 3.11 L (4.10-5.20) X 10*6/uL Hgb 9.5 L (12.0-15.0) g/dL Hct 28.0 L (37.2-46.3) % Lymphocytes # 0.87 L (0.90-5.00) X 10*3/uL Potassium 3.3 L (3.5-5.5) mmol/L Chloride 111 H (96-109) mmol/L Est GFR (CKD-EPI)AfAm 55.0 L (60.0-200.0) Est GFR (CKD-EPI)NonAf 47.4 L (60.0-200.0) Glucose 185 H (70-110) mg/dL POC Glucose (mg/dL) (70-110) mg/dL Hemoglobin A1c 7.2 H (0.0-6.0) % Calcium 8.3 L (8.7-10.3) mg/dL Phosphorus 2.3 L (2.4-5.1) mg/dL Total Protein 5.8 L (6.2-8.2) g/dL Albumin 3.4 L (3.8-4.9) g/dL Albumin/Globulin Ratio 1.42 L (1.60-3.17) g/dL Vitamin B12 154.0 L (200.0-944.0) pg/mL Vitamin D 25-Hydroxy 10.0 L (30.0-100.0) ng/mL 01/26/22 Range/Units 11:39 RBC (4.10-5.20) X 10*6/uL Hgb (12.0-15.0) g/dL Hct (37.2-46.3) % Lymphocytes # (0.90-5.00) X 10*3/uL Potassium (3.5-5.5) mmol/L Chloride (96-109) mmol/L Est GFR (CKD-EPI)AfAm (60.0-200.0) Est GFR (CKD-EPI)NonAf (60.0-200.0) Glucose (70-110) mg/dL POC Glucose (mg/dL) 245 H (70-110) mg/dL Hemoglobin A1c (0.0-6.0) % Calcium (8.7-10.3) mg/dL Phosphorus (2.4-5.1) mg/dL Total Protein (6.2-8.2) g/dL Albumin (3.8-4.9) g/dL Albumin/Globulin Ratio (1.60-3.17) g/dL Vitamin B12 (200.0-944.0) pg/mL Vitamin D 25-Hydroxy (30.0-100.0) ng/mL Assessment and Plan Assessment: Presyncopal episode and fall No actual loss of consciousness reported the patient does report feeling dizzy suddenly confused and darkening of her vision and she lost her balance and fell down she doesn't report any loss of consciousness Head CT was negative Carotid ultrasound reviewed no significant stenosis noted MRI pending and 2-D echocardiogram Continue cardiac telemetry Left-sided weakness Post fall, patient fell on the left side very low suspicious for CVA Neurological workup as mentioned above Patient at home is on aspirin and statin Acute kidney injury versus chronic kidney disease Baseline unclear, patient creatinine slightly elevated urine showing proteinuria, patient has history of diabetes Left hip pain Hip x-ray negative, pain started after fall Continue pain management PTOT evaluation case management consultation Hypertension Continue metoprolol Hyperlipidemia Continue atorvastatin Hypothyroidism Continue levothyroxine Glaucoma Continue latanoprost drops CODE STATUS: Full code DVT prophylaxis: Subcutaneous heparin Discharge planning: Pending PTOT evaluation may or may not need subacute rehab pending evaluation by neurology
--- NOTE | 2022-01-26 14:33 | MR ---
EXAMINATION TYPE: MR brain wo/w con DATE OF EXAM: 01/26/2022 COMPARISON: CT brain from yesterday and older study November 16, 2010 HISTORY: CVA. Acute onset neural deficit. TECHNIQUE: Multiplanar, multisequence images of the brain and brainstem is performed without and with IV contras t, utilizing 6 mL intravenous Gadavist . FINDINGS: Diffusion weighted images demonstrate round 6 mm area of increased signal on diffusion-weig hted images with diminished signal on ADC mapping showing T2 hyperintensity and subtle T1 hypointensi ty without enhancement consistent with evolving acute lacunar infarct in the right posterior basal ga nglia axial image 17. Some additional smaller areas of subtle increased T2 hyperintensity with sligh t diminished T1 and increased T2 signal without diminished signal ADC mapping could reflect subacute infarct in the right coronal radiata image 152 diffusion-weighted images. Second round 8 mm acute lac unar infarct right mclain radiata near frontoparietal junction deep white matter axial image 160 seri es 303. There is moderate ventricular and sulcal prominence redemonstrated. There are confluent areas of T2 hyperintensity in the deep and periventricular white matter identified. Midline structures demonstrate normal morphology. The craniocervical junction appears within normal limits. Post contrast images demonstrate no abnormal enhancement. The dural venous sinuses appear pa tent. The visualized sinuses are clear and the globes are intact. Patchy fluid signal left mastoid ai r cells. IMPRESSION: 1. There are 2 evolving acute right sided lacunar infarcts at level of mclain radiata and at the post erior basal ganglia. Evolving subacute infarct deep right frontal lobe at level of mclain radiata is also felt present. 2. Background moderate diffuse cerebral atrophy and advanced chronic small vessel ischemic changes. 3. New patchy fluid signal in left-sided mastoid air cells raises concern for developing mastoiditis, correlate clinically. A Yellow level critical message alert has been initiated for Chrissy Salcedo MD via the [employer] Critical Results System on 01/26/2022 2:30 PM. This message alert has been sent to Chrissy swanson MD via the preferences provided by the clinician for the receipt of Radiology Critical Findings. Message ID [id number].
[2022-01-26] MEDS ORDERED: CLOPIDOGREL 75 MG TAB PO STA (15:07)
--- NOTE | 2022-01-26 16:02 | P.CNNES ---
History of Present Illness Consult date: 01/26/22 Requesting physician: David Xavier Reason for Consult: Presyncope, history of dizziness, confusion History of Present Illness: Patient is a 81-year-old right-handed female with history of hypertension, diabetes, coronary artery disease, came to the hospital by ambulance 2 days ago on 01/24/2022 at 9:12 PM. Patient's daughter was present who provided with history. Apparently 2 days ago, on Wednesday, she went to the bathroom at 10:30 PM. Patient somewhat became disoriented, did not know where she was at, she felt dark feeling in her head and then fell down. She could not get up. She lives with her who has advanced dementia. Patient's rolled her on the sheet and dragged her in the bedroom and she laid there for almost 24 hours until patient's daughter came at Wednesday and saw her laying on the floor. Patient's did not call the ambulance because of his dementia and thinking that she needs rest rather than anything else. Patient's daughter called the EMS and she was brought to the hospital. Per patient's daughter report, patient was not able to get up by herself, 3 personnel have to help her up as she was " weight". As per EMS flow sheet, when they arrived, found patient laying on the bathroom floor. Patient's daughter arrived on scene, and found patient. Patient has mentioned that she fell at 10:30 PM Wednesday. Patient was complaining of left hip pain. Patient was able to move her left leg, denied hitting her head and denied any other injuries or medical problems. Patient's blood pressure at the scene was 156/90, pulse rate 64 respirations 17, blood sugar 181. Blood test shows normal WBC hemoglobin 11.2, platelets 288. PT/PTT normal, electrolytes are normal, BUN 18, creatinine 1.09. Hepatic panel is normal. Troponin negative. UA negative. Patient's B12 is very low 154, vitamin D 10, folate 8.10. Patient's hemoglobin has dropped to 9.5. On arrival, patient's blood pressure was 204/87, which came down to 185/93. CT head revealed cerebral atrophy. Chronic small vessel ischemia. There is p rogressing of disease compared to old exam. I personally reviewed CT of the brain, agree with the findings. There is significant small vessel disease, no acute process. EKG shows sinus rhythm, possible left atrial enlargement. Hip, pelvic x-ray, chest x-ray shoulder x-ray all negative. Patient's daughter also mentions that in the last 6 months, she has been more wobbly walking, slow not steady on her feet. In the past few months she has been more forgetful, missing appointments. In the last 1 month she has been forgetting the days. In the last 1-1/2 months she is also having incontinence of the urine. Patient had an appointment with her primary physician in and of October 2021 and she was found to have very highly elevated A1c, and lipids. Patient then confessed to her primary physician that she has stopped taking all her medications for blood pressure, diabetes, thyroid for about couple months prior. Patient then started back her medications. Patient says that she never stopped taking her 2 baby aspirins that she has been taking since her bypass surgery. Patient has also mentioned to her daughter yesterday in the ER, that on Wednesday morning, when she was making breakfast, she was noticing difficulty with left hand holding the toast while buttering with the right hand. Patient's daughter has seen her on the night prior on night and she was fine. Per nursing report from 11:25 AM this morning, patient is confused, complaining of headache, increased weakness on the left side, having difficult time with balance. Possible left-sided eye droop. Patient has recent injection of the Elyea into her left eye related to diabetic retinopathy. She has been getting this monthly injection into the eye for last 4-5 years. The last injection was done 01/21/2022. Patient is scheduled for MRI of the brain at 1:45 PM. Patient's home medications include metoprolol, losartan, glipizide, metformin, aspirin 162 mg, Lipitor 40 mg, insulin, levothyroxine. Patient has smoked half pack per day since age 14, quit in 2010 after she had bypass surgery. Denies any alcohol use. Patient does have history of restless legs for long time. She has diabetes for the last 10-20 years. Review of Systems Patient admits to having headaches pointing to the neck line, rating 8/10 without any nausea vomiting light or noise sensitivity. No previous history of migraines. At this time she has no headache. Denies any numbness or tingling. She states that she was dizzy before but not anymore. Past Medical History Past Medical History: Coronary Artery Disease (CAD), Heart Failure, Hyperlipidemia, Hypertension, Myocardial Infarction ([place]), Osteoarthritis (OA), Thyroid Disorder Last Myocardial Infarction Date:: 2010 History of Any Multi-Drug Resistant Organisms: None Reported Past Surgical History: Coronary Bypass/CABG, Orthopedic Surgery Past Anesthesia/Blood Transfusion Reactions: No Reported Reaction Past Psychological History: No Psychological Hx Reported Smoking Status: Former smoker Past Alcohol Use History: None Reported Additional Past Alcohol Use History / Comment(s): Pt states she quit smoking in 2010 before she underwent a CABG procedure Past Drug Use History: None Reported Medications and Allergies Home Medications Medication Instructions Recorded Confirmed Type Losartan Potassium 100 mg PO DAILY@139911/16/13 01/25/22 History Metoprolol Tartrate [Lopressor] 100 mg PO DAILY@139911/16/13 01/25/22 History Aspirin [Adult Low Dose Aspirin EC] 162 mg PO HS 06/11/20 01/25/22 History Atorvastatin [Lipitor] 40 mg PO HS 06/11/20 01/25/22 History Insulin Detemir [Levemir Flextouch] 24 unit SQ HS 06/11/20 01/25/22 History Insulin Lispro [humaLOG Kwikpen] See Protocol SQ AC-TID PRN 06/11/20 01/25/22 History Latanoprost/Pf [Latanoprost 0.005% 1 drop BOTH EYES HS 06/11/20 01/25/22 History Eye Drop] glipiZIDE [Glucotrol] 10 mg PO DAILY 06/11/20 01/25/22 History metFORMIN HCL 1,500 mg PO DAILY 06/11/20 01/25/22 History Levothyroxine Sodium [Synthroid] 125 mcg PO DAILY 01/25/22 01/25/22 History Allergies Allergy/AdvReac Type Severity Reaction Status Date / Time No Known Allergies Allergy Verified 01/25/22 11:30 Physical Examination - Vital Signs Vital Signs: Vital Signs Temp Pulse Resp BP BP Pulse Ox 01/26/22 11:37 98.3 F 63 17 101/40 98 01/26/22 08:55 98 01/26/22 04:29 98.8 F 58 L 18 197/67 98 01/25/22 20:00 16 01/25/22 19:45 98.8 F 64 16 172/77 98 01/25/22 17:34 63 181/74 Intake and Output 01/25/22 01/26/22 01/26/22 22:59 06:59 14:59 Other: Voiding Method External Catheter External Catheter # Voids 2 4 1 Patient is an elderly female, in no acute distress. Patient has a flat affect. Patient is alert awake oriented to time place and person. Patient knows it is January is the 10th and the year is 2021. She knows she is in [facility] in [facility]. She knows name of the current president. Speech and language functions are normal. Patient has mild dysarthria, but she can name and repeat very well. Attention, concentration and fund of knowledge is adequate. On cranial examination, pupils are equal, round and reacting to light, visual calvo are full on confrontation, extraocular muscles are intact with no nystagmus. Patient has mild left ptosis since her eye injections. Patient has very mild left facial weakness. Her tongue protrudes to the midline. Palatal elevation and sensation normal, hearing and shoulder shrug normal, facial sensation normal. Shoulder shrug normal. On muscle strength testing, there is significant left pronator drift, does not able to lift her left arm off the bed. Her muscle strength is in (right/left deltoid 5/1-2, biceps 5/5-4+, triceps 5/5-4+, binder chainstitch 5-/5-. In the lower extremities hip flexion is 5/3+, ankle dorsiflexion 5/2. Deep tendon reflexes ar symmetric, 1+ at the biceps, 1 brachioradialis, 1 at the knees, trace ankles and plantar is downgoing on the right, up on the left. Sensory to touch is equal on both sides, but checking for neglect was very inconsistent. Cerebellar function showed no ataxia for [id number] testing on the right side, cannot perform on the left. Tone is decreased on the left, and bulk of muscles normal. Gaitnot able to be checked. On general examination, there is no carotid bruit or murmur, S1-S2 audible. Abdomen is soft nontender. no organomegaly, bowel sounds present. Chest is clear. Peripheral pulses are present. No edema. Results - Laboratory Findings CBC and BMP: 01/26/22 07:16 01/26/22 07:16 Abnormal Lab Findings: Abnormal Labs 01/24/22 01/25/22 01/25/22 21:22 00:28 00:40 RBC Hgb Hct Lymphocytes # Potassium Chloride 108 H BUN 18 H Creatinine 1.09 H Est GFR (CKD-EPI)AfAm Est GFR (CKD-EPI)NonAf Glucose 152 H POC Glucose (mg/dL) 162 H 168 H Hemoglobin A1c Calcium Phosphorus Magnesium 1.5 L Total Protein Albumin Albumin/Globulin Ratio Vitamin B12 Vitamin D 25-Hydroxy Urine Protein Urine Glucose (UA) Urine Ketones Urine Blood 01/25/22 01/25/22 01/25/22 00:44 04:23 06:45 RBC 3.55 L Hgb 11.2 L Hct 32.1 L Lymphocytes # Potassium Chloride BUN Creatinine Est GFR (CKD-EPI)AfAm Est GFR (CKD-EPI)NonAf Glucose POC Glucose (mg/dL) 164 H Hemoglobin A1c Calcium Phosphorus Magnesium Total Protein Albumin Albumin/Globulin Ratio Vitamin B12 Vitamin D 25-Hydroxy Urine Protein 2+ H Urine Glucose (UA) 1+ H Urine Ketones 1+ H Urine Blood Trace H 01/25/22 01/25/22 01/25/22 11:00 17:03 20:13 RBC Hgb Hct Lymphocytes # Potassium Chloride BUN Creatinine Est GFR (CKD-EPI)AfAm Est GFR (CKD-EPI)NonAf Glucose POC Glucose (mg/dL) 214 H 155 H 213 H Hemoglobin A1c Calcium Phosphorus Magnesium Total Protein Albumin Albumin/Globulin Ratio Vitamin B12 Vitamin D 25-Hydroxy Urine Protein Urine Glucose (UA) Urine Ketones Urine Blood 01/26/22 01/26/22 01/26/22 06:50 07:16 07:16 RBC 3.11 L Hgb 9.5 L Hct 28.0 L Lymphocytes # 0.87 L Potassium Chloride BUN Creatinine Est GFR (CKD-EPI)AfAm Est GFR (CKD-EPI)NonAf Glucose POC Glucose (mg/dL) 186 H Hemoglobin A1c 7.2 H Calcium Phosphorus Magnesium Total Protein Albumin Albumin/Globulin Ratio Vitamin B12 Vitamin D 25-Hydroxy Urine Protein Urine Glucose (UA) Urine Ketones Urine Blood 01/26/22 01/26/22 07:16 11:39 RBC Hgb Hct Lymphocytes # Potassium 3.3 L Chloride 111 H BUN Creatinine Est GFR (CKD-EPI)AfAm 55.0 L Est GFR (CKD-EPI)NonAf 47.4 L Glucose 185 H POC Glucose (mg/dL) 245 H Hemoglobin A1c Calcium 8.3 L Phosphorus 2.3 L Magnesium Total Protein 5.8 L Albumin 3.4 L Albumin/Globulin Ratio 1.42 L Vitamin B12 154.0 L Vitamin D 25-Hydroxy 10.0 L Urine Protein Urine Glucose (UA) Urine Ketones Urine Blood Assessment and Plan Assessment: * Acute ischemic stroke involving 2 different locations including right basal ganglia and mclain radiata. Patient's current NIH stroke scale is 4, mainly related to mild left facial droop, and moderate weakness of the left upper extremity. * Hypertension * Hyperlipidemia * Diabetes * Coronary artery disease * Vitamin B12 deficiency Plan: * MRI of the brain revealed 2 evolving acute right-sided lacunar infarct at the level of coronary radiata and at the posterior basal ganglia. Evolving subacute infarct deep right frontal lobe at the level of coronary radiata is also felt present. Background moderate diffuse cerebral atrophy and advanced chronic small vessel ischemic changes. New patchy fluid signal in the left side mastoid air cells raises concern for developing mastoiditis. Patient denies any sinus problem, runny nose. I personally reviewed MRI of the brain, agree with the findings. * Patient's daughter believes that she is getting worse on the left side. We will give loading dose of Plavix 300 mg now, and maintain her on Plavix 75 mg daily. * Carotid Doppler revealed less than 30% stenosis in both ICA. Antegrade flow in both vertebral arteries. * Hemoglobin A1c 7.2. Optimize control of diabetes to target A1c <7.0. Her prior hemoglobin A1c was 12.4 on 11/12/2021. Current A1c much better. * Lipid panel. Increase Lipitor from 40-80 mg daily. Target LDL <70. Chela ent's LDL while taking medication has been around 110. * 2-D echo with bubble study to rule out PFO pending. * Telemetric monitoring rule out arrhythmia. * Permissive hypertension. Do not treat blood pressure unless > 220/120 for 24 hours * Patient's memory loss, gait imbalance and urinary incontinence likely from B12 deficiency. Patient to be given vitamin B12 injection 1000 g IM 7 day, then weekly for a month and then twice a month thereafter. * DVT prophylaxis. * Discussed with patient's daughter in detail. * Neurology will follow. Thank you for the consult.
[2022-01-26 16:24] VITALS: BMI 22.3
[2022-01-26] MEDS: CYANOCOBALAMIN 1,000 MCG/ML 1 ML VIAL IM SCH (16:47)
[2022-01-26] MEDS: INSULIN ASPART (NovoLOG) 100 UNIT/ML VIAL SQ SCH ×2 (17:25→20:42)
[2022-01-26 17:33] LABS: Glucose,Whole Blood 196 mg/dL (70-110)
[2022-01-26] MEDS ORDERED: POTASSIUM CHLORIDE ER 20 MEQ TAB.ER PO STA (18:16)
[2022-01-26 19:12] LABS: Glucose,Whole Blood 179 mg/dL (70-110)
[2022-01-26] MEDS: ATORVASTATIN 80 MG TAB PO SCH (20:42)
[2022-01-26] MEDS: FAMOTIDINE 20 MG TAB PO SCH (20:43)
[2022-01-26] MEDS ORDERED: FAMOTIDINE 20 MG TAB PO SCH (21:00)
[2022-01-27 03:59] LABS: Creatinine,Urine Random 94.9 mg/dL (28.0-217.0)
[2022-01-27] MEDS: LEVOTHYROXINE 125 MCG TAB PO SCH (05:35)
[2022-01-27] MEDS: SODIUM CHLORIDE 0.9% 1,000 ML IV SCH ×3 (05:35→21:04)
[2022-01-27] MEDS: INSULIN ASPART (NovoLOG) 100 UNIT/ML VIAL SQ SCH ×4 (07:17→21:02)
[2022-01-27 07:34] LABS: Glucose,Whole Blood 43 mg/dL (70-110)
[2022-01-27 07:34] LABS: Glucose,Whole Blood 51 mg/dL (70-110)
[2022-01-27 07:43] LABS: Glucose,Whole Blood 43 mg/dL (70-110)
[2022-01-27 08:02] LABS: Glucose,Whole Blood 53 mg/dL (70-110)
[2022-01-27] MEDS ORDERED: DEXTROSE 50% SYRINGE 50 ML IVP ONE (08:02)
[2022-01-27] MEDS: CYANOCOBALAMIN 1,000 MCG/ML 1 ML VIAL IM SCH (08:08)
[2022-01-27] MEDS: amLODIPine 5 MG TAB PO SCH (08:08)
[2022-01-27] MEDS: carvediloL 12.5 MG TAB PO SCH ×2 (08:08→17:27)
[2022-01-27] MEDS: CLOPIDOGREL 75 MG TAB PO SCH (08:08)
[2022-01-27] MEDS: FOLIC ACID 1 MG TAB PO SCH (08:08)
[2022-01-27 08:14] LABS: Glucose,Whole Blood 46 mg/dL (70-110)
[2022-01-27 12:09] LABS: Glucose,Whole Blood 182 mg/dL (70-110)
--- NOTE | 2022-01-27 12:57 | P.CRDCN ---
History of Present Illness History of present illness: HISTORY OF PRESENTING ILLNESS This is a pleasant 81 year-old female past medical history significant for coronary artery disease s/[place] CAB[place] [address] Barbosa, type 2 diabetes, hypertension, dyslipidemia, hypothyroidism, osteoarthritis, former smoker. She does not follow with a certified substance abuse counselor, she did see Dr. Olvera last in 2011 after her CABG. We have been asked to see in consultation for acute CVA. Patient presents emergency department on 01/24 after an episode at home where around 10:30PM she went to the bathroom and had acute onset dizziness and confusion and she states she lost her balance and fell on her left side, she was unable to get up on her own. She did not lose consciousness, no syncope. She was on the ground for about 24 hours, unfortunately her has advanced d ementia who she lives with and could not help her. Her daughter came by the next day to find the patient on the ground. MRI of the brain revealed 2 evolving acute right-sided lacunar infarcts. She denies any chest pain, shortness of breath, lightheadedness, syncope. She denies any prior history of CVA, arrhythmia, atrial fibrillation or heart failure She has had no further cardiac issues after her bypass. She is a former smoker, quit in 2010. DIAGNOSTICS * EKG on admission reveals sinus rhythm, heart rate 72, ST depression mild in lateral leads and T wave inversions in anterior lateral leads. no prior EKG to compare * No Telemetry to review * Chest xray no acute cardiopulmonary process * Laboratory reviewed, troponin negative, WBC 6.7, hemoglobin 9.5, platelets 248, sodium 142, potassium 3.3, BUN 13, serum creatinine 1.1, hemoglobin A1c 7.2, magnesium 1.5, triglycerides 112, cholesterol 135, LDL 112, HDL 40 * MRI Brain- 2 evolving acute right-sided lacunar infarcts at the level of the c keara radiata and at the posterior basal ganglia. Evolving subacute infarct deep right frontal lobe at the level of mclain radiata is also present. background moderate diffuse cerebral atrophy and advanced chronic small vessel ischemic changes. fluid left sided mastoid air cells raising concern for developing mastoiditis * US abdomen report revealed large gallbladder wall thickening with suspected acute/chronic cholecystitis * Current home cardiac medications include metformin, glipizide, metoprolol tartrate 100 mg daily, losartan 100 mg daily, atorvastatin 40 mg nightly, aspirin 81 mg nightly, Synthroid, insulin REVIEW OF SYSTEMS At the time of my exam: CONSTITUTIONAL: Denies fever or chills. CARDIOVASCULAR: Denies chest pain, shortness of breath, orthopnea, PND or palpitations. RESPIRATORY: Denies cough. GASTROINTESTINAL: Denies abdominal pain, diarrhea, constipation, nausea or vomit ing. MUSCULOSKELETAL: Denies myalgias. NEUROLOGIC: +left sided weakness + confusion Denies numbness, tingling ENDOCRINE: Denies fatigue, weight change, polydipsia or polyurina. GENITOURINARY: Denies burning, hematuria or urgency with micturation. HEMATOLOGIC: + history of anemia Denies bleeding. PHYSICAL EXAMINATION Vitals reviewed CONSTITUTIONAL: No apparent distress. HEENT: Head is normocephalic. Pupils are equal, round. Sclerae anicteric. Mucous membranes of the mouth are moist. No JVD. No carotid bruit. CHEST EXAMINATION: Lungs are clear to auscultation. No chest wall tenderness is noted on palpation or with deep breathing. HEART EXAMINATION: Regular rate and rhythm. S1, S2 heard. No murmurs, gallops or rub. ABDOMEN: Soft, nontender. Positive bowel sounds. EXTREMITIES: 2+ peripheral pulses, no lower extremity edema and no calf tenderness. NEUROLOGIC EXAMINATION: Patient is awake, alert and oriented x3. Left arm weakness noted. ASSESSMENT Acute Ischemic stroke Hypertension Hyperlipidemia Type 2 Diabetes Hypothyroidism Coronary artery disease s/p CABG in [address] patient on Telemetry 2D echocardiogram with bubble study ordered, will review Patient on aspirin, Plavix and statin Resume patient's antihypertensives as tolerated Further recommendations based on clinical course Nurse practitioner note has been reviewed by physician. Signing provider agrees with the documented findings, assessment, and plan of care. Past Medical History Past Medical History: Coronary Artery Disease (CAD), Heart Failure, Hyperlipidemia, Hypertension, Myocardial Infarction ([place]), Osteoarthritis (OA), Thyroid Disorder Last Myocardial Infarction Date:: 2010 History of Any Multi-Drug Resistant Organisms: None Reported Past Surgical History: Coronary Bypass/CABG, Orthopedic Surgery Past Anesthesia/Blood Transfusion Reactions: No Reported Reaction Past Psychological History: No Psychological Hx Reported Smoking Status: Former smoker Past Alcohol Use History: None Reported Additional Past Alcohol Use History / Comment(s): Pt states she quit smoking in 2010 before she underwent a CABG procedure Past Drug Use History: None Reported Medications and Allergies Home Medications Medication Instructions Recorded Confirmed Type Losartan Potassium 100 mg PO DAILY@1400 11/16/13 01/25/22 History Metoprolol Tartrate [Lopressor] 100 mg PO DAILY@1400 11/16/13 01/25/22 History Aspirin [Adult Low Dose Aspirin EC] 162 mg PO HS 06/11/20 01/25/22 History Atorvastatin [Lipitor] 40 mg PO HS 06/11/20 01/25/22 History Insulin Detemir [Levemir Flextouch] 24 unit SQ HS 06/11/20 01/25/22 History Insulin Lispro [humaLOG Kwikpen] See Protocol SQ AC-TID PRN 06/11/20 01/25/22 History Latanoprost/Pf [Latanoprost 0.005% 1 drop BOTH EYES HS 06/11/20 01/25/22 History Eye Drop] glipiZIDE [Glucotrol] 10 mg PO DAILY 06/11/20 01/25/22 History metFORMIN HCL 1,500 mg PO DAILY 06/11/20 01/25/22 History Levothyroxine Sodium [Synthroid] 125 mcg PO DAILY 01/25/22 01/25/22 History Allergies Allergy/AdvReac Type Severity Reaction Status Date / Time No Known Allergies Allergy Verified 01/25/22 11:30 Physical Exam Vitals: Vital Signs Temp Pulse Resp BP BP Pulse Ox 01/27/22 11:16 97.8 F 63 17 176/66 100 01/27/22 08:09 56 L 177/69 97 01/27/22 04:54 97.9 F 50 L 18 161/76 99 01/26/22 19:51 98.3 F 62 18 142/56 97 01/26/22 19:33 62 18 Intake and Output 01/26/22 01/27/22 01/27/22 22:59 06:59 14:59 Intake Total 180 Balance 180 Intake: Oral 180 Other: Voiding Method External Catheter External Catheter # Voids 0 3 Weight 59 kg Results 01/26/22 07:16 01/27/22 08:30 Comprehensive Metabolic Panel 01/27/22 Range/Units 08:30 Glucose 129 H (74-99) mg/dL Current Medications Generic Name Dose Route Start Last Admin Trade Name Freq PRN Reason Stop Dose Admin Amlodipine Besylate 5 mg 01/26/22 09:00 01/27/22 08:08 Amlodipine 5 Mg Tab PO 5 mg DAILY DOMINIQUE Administration Aspirin 81 mg 01/27/22 21:00 Aspirin 81 Mg PO HS DOMINIQUE Atorvastatin Calcium 80 mg 01/26/22 21:00 01/26/22 20:42 Atorvastatin 80 Mg Tab PO 80 mg HS DOMINIQUE Administration Carvedilol 12.5 mg 01/25/22 18:00 01/27/22 08:08 Carvedilol 12.5 Mg Tab PO 12.5 mg BID-W/MEALS DOMINIQUE Administration Clopidogrel Bisulfate 75 mg 01/27/22 09:00 01/27/22 08:08 Clopidogrel 75 Mg Tab PO 75 mg DAILY DOMINIQUE Administration Cyanocobalamin 1,000 mcg 01/26/22 16:15 01/27/22 08:08 Cyanocobalamin 1,000 Mcg/Ml 1 Ml Vial IM 02/02/22 16:16 1,000 mcg DAILY DOMINIQUE Administration Famotidine 20 mg 01/26/22 21:00 01/26/22 20:43 Famotidine 20 Mg Tab PO 20 mg HS DOMINIQUE Administration Folic Acid 1 mg 01/27/22 09:00 01/27/22 08:08 Folic Acid 1 Mg Tab PO 1 mg DAILY DOMINIQUE Administration Sodium Chloride 1,000 mls @ 130 mls/hr 01/25/22 01:00 01/27/22 05:35 Saline 0.9% IV 130 mls/hr .[id number] DOMINIQUE Administration Insulin Aspart 0 unit 01/26/22 17:30 01/27/22 07:17 Insulin Aspart (Novolog) 100 Unit/Ml Vial SQ Not Given ACHS [facility] Protocol Insulin Detemir 24 unit 01/25/22 21:00 01/26/22 20:42 Insulin Detemir (Levemir) 100 Unit/Ml Syr SQ 24 unit HS DOMINIQUE Administration Latanoprost 1 drops 01/25/22 21:00 01/26/22 20:43 Latanoprost 0.005% Ophth Drops 2.5 Ml Btl BOTH EYES 1 drops HS DOMINIQUE Administration Levothyroxine Sodium 125 mcg 01/26/22 06:30 01/27/22 05:35 Levothyroxine 125 Mcg Tab PO 125 mcg 0630 DOMINIQUE Administration Naloxone HCl 0.2 mg 01/25/22 00:59 Naloxone 0.4 Mg/Ml 1 Ml Vial IV Q2M PRN Opioid Reversal Ondansetron HCl 4 mg 01/25/22 00:59 Ondansetron 4 Mg/2 Ml Vial IVP Q8HR PRN Nausea And Vomiting Intake and Output 01/26/22 01/27/22 01/27/22 22:59 06:59 14:59 Intake Total 180 Balance 180 Intake: Oral 180 Other: Voiding Method External Catheter External Catheter # Voids 0 3 Weight 59 kg 01/26/22 07:16 01/27/22 08:30
[2022-01-27 13:31] LABS: African American GFR (CKD) 61 (>60 ml/min/1.73 sqM); Anion Gap 6 mmol/L; Blood Urea Nitrogen 13 mg/dL (7-17); Calcium 8.4 mg/dL (8.4-10.2); Carbon Dioxide 18 mmol/L (22-30); Chloride 118 mmol/L (98-107); Glucose 153 mg/dL (74-99); Non-African American GFR(CKD) 53 (>60 ml/min/1.73 sqM); Potassium 3.6 mmol/L (3.5-5.1); Sodium 142 mmol/L (137-145)
--- NOTE | 2022-01-27 16:53 | P.PN ---
Subjective Progress Note Date: 01/27/22 History of Present Illness H&P Date: 01/25/22 History of presenting illness: 81 years old Female who has past medical history significant for hypertension hyperlipidemia hypothyroidism diabetes mellitus glaucoma osteoarthritis osteoporosis, presented to the emergency department after she experienced a fall, no actual syncopal episodes reported, apparently she was going to the bathroom and suddenly had dizziness and she was confused and was not sure where she was, she also told me that she felt her vision was darkened but she is very clear that she didn't lose consciousness, patient fell on the left side, patient after fall was unable to get up and ambulate. She had left-sided hip pain. Patient later on became better pain improved and she was able to move her legs. Patient was seen in emergency department hip x-ray showed no acute abnormalities in the pelvis and the left hip, chest x-ray showed no acute cardio pulmonary process, she did complain about some left upper arm weakness as well to the nursing staff therefore computed tomography scan was done which was negative for any acute finding. 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 Overall poor appetite and nutritional status not eating well, also her sleep is compromised. Patient had an episode of hypoglycemia earlier today blood sugar dropped to 51. Did not improve with just but improved after she received an amp of D50. Review of systems. 14 point review of system was done in detail and is negative except as above in HPI. Physical examination General: non toxic, no acute distress, alert oriented to time place and person Head: atraumatic, normocephalic, symmetric Eyes: no lid lesion], anicteric sclera Mouth: no lip lesion, mucus membranes moist Cardiovascular: S1S2 reg rate and rhythm, no murmur, no gallop Lungs: Bilateral equal air entry, no wheezing no rhonchi no crackles. Abdominal: soft, nontender to palpation, no guarding, no appreciable organomegaly Ext: no gross muscle atrophy, no edema extremities warm to suppose a positive Neuro: Alert oriented to time place and person, exam grossly nonfocal Psych: Mood and affect appropriate, patient not so certain Skin exam: No rashes no jaundice. Assessment and plan Acute ischemic stroke involving 2 different locations including right basal ganglia and mclain radiata. -MRI of the brain revealed 2 evolving acute right-sided lacunar infarct at the level of coronary radiata and at the posterior basal ganglia. Evolving subacute infarct deep right frontal lobe at the level of coronary radiata is also felt present. Background moderate diffuse cerebral atrophy and advanced chronic small vessel ischemic changes. New patchy fluid signal in the left side mastoid air cells raises concern for developing mastoiditis. Patient denies any sinus problem, runny nose. I personally reviewed MRI of the brain, agree with the findings. -Patient's daughter believes that she is getting worse on the left side. -Carotid Doppler revealed less than 30% stenosis in both ICA. Antegrade flow in both vertebral arteries. -Hemoglobin A1c 7.2. Optimize control of diabetes to target A1c <7.0. Her prior hemoglobin A1c was 12.4 on 11/12/2021. Current A1c much better. -Lipid panel. Increase Lipitor from 40-80 mg daily. Target LDL <70. Patient's LDL while taking medication has been around 110. -Resume aspirin, Plavix and statins -2-D echo with bubble study -Cardiology consulted Presyncopal episode and fall secondary to above No actual loss of consciousness reported the patient does report feeling dizzy suddenly confused and darkening of her vision and she lost her balance and fell down she doesn't report any loss of consciousness Head CT was negative Severe B12 deficiency -B-12 level is 155 -Patient started on B12 shots Vitamin D3 deficiency -Vitamin D level is 10 -Start ergocalciferol 50,000 units every week Type 2 diabetes mellitus with hypoglycemia -A1c is 7.2 -Decrease the Levemir dose to 15 units daily at bedtime Acute kidney injury -Improved Baseline unclear, patient creatinine slightly elevated urine showing proteinuria, patient has history of diabetes Check urine electrolytes and protein, check urine ultrasound Left hip pain Hip x-ray negative, pain started after fall Continue pain management PTOT evaluation case management consultation Hypertension Continue metoprolol Hyperlipidemia Continue atorvastatin Hypothyroidism Continue levothyroxine Glaucoma Continue latanoprost drops CODE STATUS: Full code DVT prophylaxis: Subcutaneous heparin Discharge planning: Pending PTOT evaluation may or may not need subacute rehab Objective - Vital Signs Vital signs: Vital Signs Temp 97.8 F 01/27/22 11:16 Pulse 63 01/27/22 11:16 Resp 17 01/27/22 11:16 BP 176/66 01/27/22 11:16 Pulse Ox 100 01/27/22 11:16 FiO2 Intake & Output 01/26/22 01/27/22 01/27/22 18:59 06:59 18:59 Intake Total 180 Balance 180 Weight 59 kg Intake: Oral 180 Other: Voiding Method External Catheter External Catheter External Catheter # Voids 0 3 1 - Labs CBC & Chem 7: 01/26/22 07:16 01/27/22 12:59 Labs: Abnormal Lab Results - Last 24 Hours (Table) 01/25/22 01/26/22 01/26/22 Range/Units 16:00 17:24 19:09 Chloride (98-107) mmol/L Carbon Dioxide (22-30) mmol/L Glucose (74-99) mg/dL POC Glucose (mg/dL) 196 H 179 H (70-110) mg/dL U Random Total Protein 137.0 H (0.0-13.5) mg/dL 01/27/22 01/27/22 01/27/22 Range/Units 07:01 07:24 07:41 Chloride (98-107) mmol/L Carbon Dioxide (22-30) mmol/L Glucose (74-99) mg/dL POC Glucose (mg/dL) 51 L 43 L 43 L (70-110) mg/dL U Random Total Protein (0.0-13.5) mg/dL 01/27/22 01/27/22 01/27/22 Range/Units 07:59 08:04 08:30 Chloride (98-107) mmol/L Carbon Dioxide (22-30) mmol/L Glucose 129 H (74-99) mg/dL POC Glucose (mg/dL) 53 L 46 L (70-110) mg/dL U Random Total Protein (0.0-13.5) mg/dL 01/27/22 01/27/22 Range/Units 11:59 12:59 Chloride 118 H (98-107) mmol/L Carbon Dioxide 18 L (22-30) mmol/L Glucose 153 H (74-99) mg/dL POC Glucose (mg/dL) 182 H (70-110) mg/dL U Random Total Protein (0.0-13.5) mg/dL
[2022-01-27] MEDS ORDERED: ERGOCALCIFEROL 1,250 MCG (50,000 IU) CAPSULE PO SCH (17:00)
[2022-01-27 17:03] LABS: Glucose,Whole Blood 156 mg/dL (70-110)
[2022-01-27 19:46] LABS: T4, Free (Free Thyroxine) 1.17 ng/dL (0.78-2.19)
[2022-01-27 19:58] LABS: Glucose,Whole Blood 164 mg/dL (70-110)
[2022-01-27] MEDS ORDERED: INSULIN DETEMIR (LEVEMIR) 100 UNIT/ML SYR SQ SCH (21:00)
[2022-01-27] MEDS: ASPIRIN 81 MG PO SCH (21:02)
[2022-01-27] MEDS: ATORVASTATIN 80 MG TAB PO SCH (21:02)
[2022-01-27] MEDS: FAMOTIDINE 20 MG TAB PO SCH (21:02)
[2022-01-27] MEDS: LATANOPROST 0.005% OPHTH DROPS 2.5 ML BTL BOTH EYES SCH (21:05)
--- NOTE | 2022-01-27 22:45 | P.PN ---
Subjective Progress Note Date: 01/27/22 Patient was seen for a follow-up. Patient denies any new neurological symptoms. Denies headache. Patient is laying comfortably in the bed. Objective - Vital Signs Vital signs: Vital Signs Temp 97.8 F 01/27/22 11:16 Pulse 63 01/27/22 11:16 Resp 17 01/27/22 11:16 BP 176/66 01/27/22 11:16 Pulse Ox 100 01/27/22 11:16 FiO2 Intake & Output 01/26/22 01/27/22 01/27/22 18:59 06:59 18:59 Intake Total 180 Balance 180 Weight 59 kg Intake: Oral 180 Other: Voiding Method External Catheter External Catheter External Catheter # Voids 0 3 1 - Exam Patient is alert and awake. Speech and language functions are normal. She does have mild dysarthria. Cranial nerves significant for mild left-sided ptosis. Patient has mild left facial droopiness. Tongue protrudes the midline. Visual calvo are full. Muscle strength revealed (right/left) deltoid 5/2, biceps 5/4+, triceps 5/5-, data mining analyst 5/5. In the lower extremities hip flexion is 5/3+, ankle dorsiflexion 5/2. Sensation decreased in the left arm and leg, but is equal on the face. Her chest is clear, abdomen soft and nontender. No edema. - Labs CBC & Chem 7: 01/26/22 07:16 01/27/22 12:59 Labs: Abnormal Lab Results - Last 24 Hours (Table) 01/25/22 01/26/22 01/26/22 Range/Units 16:00 17:24 19:09 Chloride (98-107) mmol/L Carbon Dioxide (22-30) mmol/L Glucose (74-99) mg/dL POC Glucose (mg/dL) 196 H 179 H (70-110) mg/dL U Random Total Protein 137.0 H (0.0-13.5) mg/dL 01/27/22 01/27/22 01/27/22 Range/Units 07:01 07:24 07:41 Chloride (98-107) mmol/L Carbon Dioxide (22-30) mmol/L Glucose (74-99) mg/dL POC Glucose (mg/dL) 51 L 43 L 43 L (70-110) mg/dL U Random Total Protein (0.0-13.5) mg/dL 01/27/22 01/27/22 01/27/22 Range/Units 07:59 08:04 08:30 Chloride (98-107) mmol/L Carbon Dioxide (22-30) mmol/L Glucose 129 H (74-99) mg/dL POC Glucose (mg/dL) 53 L 46 L (70-110) mg/dL U Random Total Protein (0.0-13.5) mg/dL 01/27/22 01/27/22 01/27/22 Range/Units 11:59 12:59 16:57 Chloride 118 H (98-107) mmol/L Carbon Dioxide 18 L (22-30) mmol/L Glucose 153 H (74-99) mg/dL POC Glucose (mg/dL) 182 H 156 H (70-110) mg/dL U Random Total Protein (0.0-13.5) mg/dL Assessment and Plan Assessment: * Acute ischemic stroke involving 2 different locations including right basal ganglia and mclain radiata. Patient's current NIH stroke scale is 4, mainly related to mild left facial droop, and moderate weakness of the left upper extremity. * Hypertension * Hyperlipidemia * Diabetes * Coronary artery disease * Vitamin B12 deficiency Plan: * Patient's examination is essentially unchanged. No further worsening as compared to yesterday. * MRI of the brain revealed 2 evolving acute right-sided lacunar infarct at the level of coronary radiata and at the posterior basal ganglia. Evolving subacute infarct deep right frontal lobe at the level of coronary radiata is also felt present. Background moderate diffuse cerebral atrophy and advanced chronic small vessel ischemic changes. New patchy fluid signal in the left side mastoid air cells raises concern for developing mastoiditis. Patient denies any sinus problem, runny nose. I personally reviewed MRI of the brain, agree with the findings. * Continue Plavix 75 mg daily and aspirin 81 mg daily. * Carotid Doppler revealed less than 30% stenosis in both ICA. Antegrade flow in both vertebral arteries. * Hemoglobin A1c 7.2. Optimize control of diabetes to target A1c <7.0. Her prior hemoglobin A1c was 12.4 on 11/12/2021. Current A1c much better. * Lipid panel with cholesterol 175, LDL 112, HDL 40 and triglycerides 112. Increase Lipitor from 40-80 mg daily. Target LDL <70. * 2-D echo with bubble study has been completed, results pending. * Telemetric monitoring rule out arrhythmia. * May start slowly decreasing blood pressure. * Patient's memory loss, gait imbalance and urinary incontinence likely from B12 deficiency. Patient to be given vitamin B12 injection 1000 g IM 7 day, then weekly for a month and then twice a month thereafter. * DVT prophylaxis. We will start heparin 5000 units subcu every 8 hours.
[2022-01-27] MEDS: HEPARIN SODIUM,PORCINE/PF 5,000 UNIT/0.5 ML SYRINGE SQ SCH (23:35)
[2022-01-28] MEDS: SODIUM CHLORIDE 0.9% 1,000 ML IV SCH ×3 (04:37→21:27)
[2022-01-28] MEDS: LEVOTHYROXINE 125 MCG TAB PO SCH (04:37)
[2022-01-28 07:10] LABS: Glucose,Whole Blood 61 mg/dL (70-110)
--- NOTE | 2022-01-28 07:16 | CA ---
Transthoracic Echo Report Name: Sarina Nicolas Age: 81 Gender: F : 1940 Exam Date: 01/26/2022 13:23 Exam Location: [facility] Ht (in): 64 Wt (lb): 130 Ordering Physician: David aXvier MD Attending/Referring Phys: Workers' Compensation Mediator Lorelei Encarnacion RDCS Procedure CPT: Indications: CVA Cardiac Hx: Technical Quality: Fair Contrast 1: Total Dose (mL): Contrast 2: Total Dose (mL): MEASUREMENTS (Male / Female) Normal Values 2D ECHO LV Diastolic Diameter PLAX 3.0 cm 4.2 - 5.9 / 3.9 - 5.3 cm LV Systolic Diameter PLAX 2.1 cm IVS Diastolic Thickness 1.7 cm 0.6 - 1.0 / 0.6 - 0.9 cm LVPW Diastolic Thickness 1.8 cm 0.6 - 1.0 / 0.6 - 0.9 cm LV Relative Wall Thickness 1.2 RV Internal Dim ED PLAX 2.6 cm M-MODE Aortic Root Diameter MM 3.0 cm LA Systolic Diameter MM 4.5 cm LA Ao Ratio MM 1.5 MV E Point Septal Separation 0.6 cm AV Cusp Separation MM 1.8 cm DOPPLER AV Peak Velocity 112.9 cm/s AV Peak Gradient 5.1 mmHg MV Area PHT 3.8 cm??? Mitral E Point Velocity 78.8 cm/s Mitral A Point Velocity 96.6 cm/s Mitral E to A Ratio 0.8 MV Deceleration Time 198.1 ms TR Peak Velocity 138.7 cm/s TR Peak Gradient 7.7 mmHg Right Ventricular Systolic Press 12.1 mmHg FINDINGS Left Ventricle Severely increased septal wall thickness. Severely increased posterior wall thickness. Left ventricular ejection fraction is estimated at 55-60 %. Left ventricular cavity size normal. Right Ventricle The right ventricle is normal in size and function. Right Atrium The right atrium is normal in size. Left Atrium The left atrium is normal in size. Mitral Valve Structurally normal mitral valve without significant stenosis or prolapse. There is mild mitral regurgitation. Mitral annulus calcification Aortic Valve Aortic sclerosis with no evidence of stenosis. There is no aortic regurgitation. Tricuspid Valve Structurally normal tricuspid valve without significant stenosis. Pulmonary artery systolic pressure is normal. Mild tricuspid regurgitation. Pulmonic Valve Structurally normal pulmonic valve without significant stenosis. There is no pulmonic regurgitation. Pericardium Normal pericardium without effusion. Aorta Normal aortic root dimension. CONCLUSIONS 1. Normal size and systolic function 2. Mild mitral and tricuspid regurgitation. Previewed by: Dr. Wil Pacheco MD (Electronically Signed) Final Date: 28 January 2022 07:15
[2022-01-28 07:29] LABS: Glucose,Whole Blood 68 mg/dL (70-110)
[2022-01-28] MEDS: INSULIN ASPART (NovoLOG) 100 UNIT/ML VIAL SQ SCH ×4 (07:44→21:34)
[2022-01-28 07:57] LABS: Glucose,Whole Blood 99 mg/dL (70-110)
[2022-01-28] MEDS ORDERED: lisinopriL 5 MG TAB PO SCH (09:00)
[2022-01-28] MEDS: amLODIPine 5 MG TAB PO SCH (09:05)
[2022-01-28] MEDS: carvediloL 12.5 MG TAB PO SCH ×2 (09:05→17:46)
[2022-01-28] MEDS: CLOPIDOGREL 75 MG TAB PO SCH (09:05)
[2022-01-28] MEDS: FOLIC ACID 1 MG TAB PO SCH (09:05)
[2022-01-28] MEDS: HEPARIN SODIUM,PORCINE/PF 5,000 UNIT/0.5 ML SYRINGE SQ SCH ×2 (09:05→17:45)
[2022-01-28] MEDS: CYANOCOBALAMIN 1,000 MCG/ML 1 ML VIAL IM SCH (09:06)
[2022-01-28 10:41] LABS: Basophils # (A) 0.03 X 10*3/uL (0.00-0.10); Basophils % (A) 0.5 %; Eosinophils # (A) 0.25 X 10*3/uL (0.04-0.35); Eosinophils % (A) 4.3 %; HCT 26.1 % (37.2-46.3); HGB 8.8 g/dL (12.0-15.0); Immature Grans, Automated 0.3 %; Lymphocytes # (A) 0.97 X 10*3/uL (0.90-5.00); Lymphocytes % (A) 16.8 %; MCH 30.6 pg (27.0-32.0); MCHC 33.7 g/dL (32.0-37.0); MCV 90.6 fL (80.0-97.0); Monocytes % (A) 6.9 %; NRBC Per 100 WBC 0 /100 WBCS (0.0-0.0); Neutrophils # (A) 4.12 X 10*3/uL (1.80-7.70); Neutrophils % (A) 71.2 %; Platelet Count 228 X 10*3/uL (140-440); RBC 2.88 X 10*6/uL (4.10-5.20); RDW 13.2 % (11.5-14.5); WBC 5.79 X 10*3/uL (4.50-10.00)
--- NOTE | 2022-01-28 10:42 | P.PN ---
Subjective This is a pleasant 81 year-old female past medical history significant for coronary artery disease [place] [address] Barbosa, type 2 diabetes, hypertension, dyslipidemia, hypothyroidism, osteoarthritis, former smoker. She does not follow with a court recorder, she did see Dr. Olvera last in 2011 after her CABG. We have been asked to see in consultation for acute CVA. Patient presents emergency department on 01/24 after an episode at home where around 10:30PM she went to the bathroom and had acute onset dizziness and confusion and she states she lost her balance and fell on her left side, she was unable to get up on her own. She did not lose consciousness, no syncope. She was on the ground for about 24 hours, unfortunately her has advanced dementia who she lives with and could not help her. Her daughter came by the next day to find the patient on the ground. MRI of the brain revealed 2 evolving acute right-sided lacunar infarcts. She denies any chest pain, shortness of breath, lightheadedness, syncope. She denies any prior history of CVA, arrhythmia, atrial fibrillation or heart failure She has had no further cardiac issues after her bypass. She is a former smoker, quit in 2010. 01/28/2022 Patient seen and examined at bedside, no acute distress. She denies any chest pain or shortness of breath. She continues to have some left upper extremity weakness. Overall she is feeling well. No acute events overnight. Telemetry reviewed patient is maintaining sinus mechanism, no arrhythmia or atrial fibrillation noted. Echocardiogram revealed EF 5560% , mild mitral regurgitation PHYSICAL EXAMINATION Vitals reviewed CONSTITUTIONAL: No apparent distress. HEENT: Neck supple. No JVD. CHEST EXAMINATION: Lungs are clear to auscultation. No chest wall tenderness is noted on palpation or with deep breathing. HEART EXAMINATION: Regular rate and rhythm. S1, S2 heard. No murmurs, gallops or rub. ABDOMEN: Soft, nontender. Positive bowel sounds. EXTREMITIES: 2+ peripheral pulses, no lower extremity edema and no calf tenderness. NEUROLOGIC EXAMINATION: Patient is awake, alert and oriented x3. Left arm weakness noted. ASSESSMENT Acute Ischemic stroke Hypertension Hyperlipidemia Type 2 Diabetes Hypothyroidism Coronary artery disease s/p CABG in 2010 Former smoker PLAN Telemetry reviewed, no evidence of atrial fibrillation noted. Patient on aspirin, Plavix and statin Start Lisinopril 5mg daily From a cardiology perspective, patient is stable. Recommend close follow up as an outpatient. Event monitor can be discussed as an outpatient. Nurse practitioner note has been reviewed by physician. Signing provider agrees with the documented findings, assessment, and plan of care. Objective - Vital Signs Vital signs: Vital Signs Temp 99.0 F 01/28/22 05:00 Pulse 64 01/28/22 05:00 Resp 16 01/28/22 05:00 BP 163/62 01/28/22 05:00 Pulse Ox 95 01/28/22 05:00 FiO2 Intake & Output 01/27/22 01/28/22 01/28/22 18:59 06:59 18:59 Intake Total 1560 120 Balance 1560 120 Intake: Intake, IV Titration 1560 Amount Sodium Chloride 0.9% 1, 1560 000 ml @ 130 mls/hr IV . Q7H42M [facility] Rx#:[id number] Oral 120 Other: Voiding Method External Catheter Bedpan Bedside Commode Diaper Diaper Incontinent Incontinent # Voids 1 3 - Labs CBC & Chem 7: 01/26/22 07:16 01/27/22 12:59 Labs: Abnormal Lab Results - Last 24 Hours (Table) 01/27/22 01/27/22 01/27/22 Range/Units 11:59 12:59 12:59 Chloride 118 H (98-107) mmol/L Carbon Dioxide 18 L (22-30) mmol/L Glucose 153 H (74-99) mg/dL POC Glucose (mg/dL) 182 H (70-110) mg/dL TSH 15.500 H (0.465-4.680) mIU/L 01/27/22 01/27/22 01/28/22 Range/Units 16:57 19:56 07:03 Chloride (98-107) mmol/L Carbon Dioxide (22-30) mmol/L Glucose (74-99) mg/dL POC Glucose (mg/dL) 156 H 164 H 61 L (70-110) mg/dL TSH (0.465-4.680) mIU/L 01/28/22 Range/Units 07:26 Chloride (98-107) mmol/L Carbon Dioxide (22-30) mmol/L Glucose (74-99) mg/dL POC Glucose (mg/dL) 68 L (70-110) mg/dL TSH (0.465-4.680) mIU/L
[2022-01-28 11:16] LABS: Free Lambda Lt Chain Qt, Urine 5.76 mg/dL (0.00-0.38)
[2022-01-28 11:40] LABS: African American GFR (CKD) 48.4 (60.0-200.0); Anion Gap 10.5 mmol/L (10.00-18.00); BUN/Creat Ratio 10.25 Ratio (12.00-20.00); Blood Urea Nitrogen 12.3 mg/dL (9.0-27.0); Calcium 8.1 mg/dL (8.7-10.3); Carbon Dioxide 18.5 mmol/L (20.0-27.5); Non-African American GFR(CKD) 41.8 (60.0-200.0); Potassium 3.2 mmol/L (3.5-5.5)
[2022-01-28 12:00] LABS: Glucose,Whole Blood 206 mg/dL (70-110)
--- NOTE | 2022-01-28 14:33 | P.PN ---
Subjective Progress Note Date: 01/28/22 Patient was seen for a follow-up. Patient's sister was present today. Patient is laying comfortably in the bed. Patient denies any new neurological symptoms. Denies headache. Continues to have left-sided weakness. Objective - Vital Signs Vital signs: Vital Signs Temp 98.6 F 01/28/22 11:20 Pulse 64 01/28/22 11:20 Resp 16 01/28/22 11:20 BP 183/67 01/28/22 11:20 Pulse Ox 98 01/28/22 11:20 FiO2 Intake & Output 01/27/22 01/28/22 01/28/22 18:59 06:59 18:59 Intake Total 1560 120 Balance 1560 120 Intake: Intake, IV Titration 1560 Amount Sodium Chloride 0.9% 1, 1560 000 ml @ 130 mls/hr IV . Q7H42M [facility] Rx#:[id number] Oral 120 Other: Voiding Method External Catheter Bedpan Bedside Commode Diaper Diaper Incontinent Incontinent # Voids 1 3 # Bowel Movements 1 - Exam Patient is alert and awake. Speech and language functions are normal. No obvious dysarthria. Cranial nerves significant for mild left-sided ptosis. Patient has mild left facial droopiness, better than yesterday. Tongue protrudes the midline. Visual calvo are full. Muscle strength revealed (right/left) deltoid 5/2, biceps 5/5-, triceps 5/5-, cable braider 5/5-. In the lower extremities hip flexion is 5/4-, ankle dorsiflexion 5/0. Sensation decreased in the left arm and leg, but is equal on the face. Her chest is clear, abdomen soft and nontender. No edema. - Labs CBC & Chem 7: 01/28/22 05:39 01/28/22 05:39 Labs: Abnormal Lab Results - Last 24 Hours (Table) 01/25/22 01/27/22 01/27/22 Range/Units 16:00 12:59 16:57 RBC (4.10-5.20) X 10*6/uL Hgb (12.0-15.0) g/dL Hct (37.2-46.3) % Potassium (3.5-5.5) mmol/L Chloride (96-109) mmol/L Carbon Dioxide (20.0-27.5) mmol/L Est GFR (CKD-EPI)AfAm (60.0-200.0) Est GFR (CKD-EPI)NonAf (60.0-200.0) BUN/Creatinine Ratio (12.00-20.00) Ratio Glucose (70-110) mg/dL POC Glucose (mg/dL) 156 H (70-110) mg/dL Calcium (8.7-10.3) mg/dL TSH 15.500 H (0.465-4.680) mIU/L U Free Lambda Light Ch 5.76 H (0.00-0.38) mg/dL 01/27/22 01/28/22 01/28/22 Range/Units 19:56 05:39 05:39 RBC 2.88 L (4.10-5.20) X 10*6/uL Hgb 8.8 L (12.0-15.0) g/dL Hct 26.1 L (37.2-46.3) % Potassium 3.2 L (3.5-5.5) mmol/L Chloride 114 H (96-109) mmol/L Carbon Dioxide 18.5 L (20.0-27.5) mmol/L Est GFR (CKD-EPI)AfAm 48.4 L (60.0-200.0) Est GFR (CKD-EPI)NonAf 41.8 L (60.0-200.0) BUN/Creatinine Ratio 10.25 L (12.00-20.00) Ratio Glucose 46 L* (70-110) mg/dL POC Glucose (mg/dL) 164 H (70-110) mg/dL Calcium 8.1 L (8.7-10.3) mg/dL TSH (0.465-4.680) mIU/L U Free Lambda Light Ch (0.00-0.38) mg/dL 01/28/22 01/28/22 01/28/22 Range/Units 07:03 07:26 11:56 RBC (4.10-5.20) X 10*6/uL Hgb (12.0-15.0) g/dL Hct (37.2-46.3) % Potassium (3.5-5.5) mmol/L Chloride (96-109) mmol/L Carbon Dioxide (20.0-27.5) mmol/L Est GFR (CKD-EPI)AfAm (60.0-200.0) Est GFR (CKD-EPI)NonAf (60.0-200.0) BUN/Creatinine Ratio (12.00-20.00) Ratio Glucose (70-110) mg/dL POC Glucose (mg/dL) 61 L 68 L 206 H (70-110) mg/dL Calcium (8.7-10.3) mg/dL TSH (0.465-4.680) mIU/L U Free Lambda Light Ch (0.00-0.38) mg/dL Assessment and Plan Assessment: * Acute ischemic stroke involving 2 different locations including right basal ganglia and mclain radiata. Patient's current NIH stroke scale is 4, mainly related to mild left facial droop, and moderate weakness of the left upper extremity. * Hypertension * Hyperlipidemia * Diabetes * Coronary artery disease * Vitamin B12 deficiency Plan: * Patient's examination is essentially unchanged. No further worsening as compared to yesterday. * MRI of the brain revealed 2 evolving acute right-sided lacunar infarct at the level of coronary radiata and at the posterior basal ganglia. Evolving subacute infarct deep right frontal lobe at the level of coronary radiata is also felt present. Background moderate diffuse cerebral atrophy and advanced chronic small vessel ischemic changes. New patchy fluid signal in the left side mastoid air cells raises concern for developing mastoiditis. Patient denies any sinus problem, runny nose. I personally reviewed MRI of the brain, agree with the findings. * Continue Plavix 75 mg daily and aspirin 81 mg daily. After 21 days, may stop aspirin and continue Plavix 75 mg daily, indefinitely. Patient has failed aspirin regimen. She was taking aspirin 162 mg daily. * Carotid Doppler revealed less than 30% stenosis in both ICA. Antegrade flow in both vertebral arteries. * Hemoglobin A1c 7.2. Optimize control of diabetes to target A1c <7.0. Her prior hemoglobin A1c was 12.4 on 11/12/2021. Current A1c much better. * Lipid panel with cholesterol 175, LDL 112, HDL 40 and triglycerides 112. Increase Lipitor from 40-80 mg daily. Target LDL <70. * 2-D echo revealed severely increased septal wall and posterior wall thickness. Left ventricular ejection fraction is estimated at 55-60%. Left atrial size is normal. Mild MR and TR. * Telemetric monitoring showing sinus rhythm and 63 heart rate. Cardiology on board. Suggest 30 day event monitor as an outpatient to rule out PAF. * May start slowly decreasing blood pressure. Avoid hypotension. * Patient's memory loss, gait imbalance and urinary incontinence likely from B12 deficiency. Patient to be given vitamin B12 injection 1000 g IM 7 day, then weekly for a month and then twice a month thereafter. * DVT prophylaxis. On heparin 5000 units subcu every 8 hours. * Neurologically cleared for transfer to subacute rehab.
[2022-01-28 17:04] LABS: Glucose,Whole Blood 167 mg/dL (70-110)
[2022-01-28 20:37] LABS: Glucose,Whole Blood 130 mg/dL (70-110)
[2022-01-28] MEDS: ASPIRIN 81 MG PO SCH (21:34)
[2022-01-28] MEDS: LATANOPROST 0.005% OPHTH DROPS 2.5 ML BTL BOTH EYES SCH (21:34)
[2022-01-28] MEDS: FAMOTIDINE 20 MG TAB PO SCH (21:34)
[2022-01-28] MEDS: ATORVASTATIN 80 MG TAB PO SCH (21:34)
[2022-01-29] MEDS: HEPARIN SODIUM,PORCINE/PF 5,000 UNIT/0.5 ML SYRINGE SQ SCH ×2 (00:04→08:42)
--- NOTE | 2022-01-29 05:05 | P.CONS ---
History of Present Illness - Chief Complaint Gait disturbance, left hemiparesthesias - History of Present Illness I had the opportunity to see patient for inpatient rehab consultation with regard to gait disturbance. Patient admitted to Dr. Alvarenga January 24 history of fall and left-sided weakness. Diagnosis contusion. Seen by neurology, Dr. White and who reviewed CAT scan and brain MRI demonstrated right basal ganglia and mclain radiata infarcts in the left-sided weakness. Seen by cardiology for known heart disease including CABG 2010. Diagnostic tests hip and pelvis as well as chest x-ray were negative. Head CT with atrophy and ischemic degenerative change that has progressed. Left shoulder x-ray negative. Carotid Doppler done and possible right common carotid diminution per this reviewer. Ultrasound demonstrates gallbladder stones and sludge and bilateral kidneys within normal limits. Bladder distended. Brain MRI with right basal ganglia/mclain radiata infarct, frontal infarct and left mastoiditis. His started therapies. PT reports moderate assist bed mobility and two-person max imal assistance for transfers. Standing balance poor. OT reports minimal assistance for feeding and grooming, maximal assistance upper dressing and two- person total assistance for bathing. Previous functional history as elicited from patient: 81-year-old right-handed white female who is lives and 2 floor home with . Patient is previously independent with cooking, laundry, driving sitdown shower gait without device. does drive. 2 daughters baby coming home to assist w ith transition. PCP Dr. Kyara watters. Denies tobacco or alcohol. Review of Systems Review of systems: ENT: Denies sneezes or discharge. Eyes: Denies discharge or photophobia. Cardiac: Denies chest pain or palpitation. Pulmonary: Denies cough or shortness of breath. Breast: Denies discharge or lumps. Gastrointestinal: Denies nausea, emesis, constipation, diarrhea. Genitourinary: Denies discharge or frequency. Musculoskeletal: Denies muscle or bone aches. Neurologic: Left-sided weakness and numbness. Endocrine: Denies shakes or sweats. Oncology: Denies cancers. Dermatologic: Denies rash, itching, pruritus. ALLERGY/immunology: Denies sneezes, rashes. Past Medical History Past Medical History: Coronary Artery Disease (CAD), Heart Failure, Hyperlipidemia, Hypertension, Myocardial Infarction ([place]), Osteoarthritis (OA), Thyroid Disorder Last Myocardial Infarction Date:: 2010 History of Any Multi-Drug Resistant Organisms: None Reported Past Surgical History: Coronary Bypass/CABG, Orthopedic Surgery Past Anesthesia/Blood Transfusion Reactions: No Reported Reaction Past Psychological History: No Psychological Hx Reported Smoking Status: Former smoker Past Alcohol Use History: None Reported Additional Past Alcohol Use History / Comment(s): Pt states she quit smoking in 2010 before she underwent a CABG procedure Past Drug Use History: None Reported Medications and Allergies Home Medications Medication Instructions Recorded Confirmed Type Losartan Potassium 100 mg PO DAILY@1400 11/16/13 01/25/22 History Metoprolol Tartrate [Lopressor] 100 mg PO DAILY@1400 11/16/13 01/25/22 History Aspirin [Adult Low Dose Aspirin EC] 162 mg PO HS 06/11/20 01/25/22 History Atorvastatin [Lipitor] 40 mg PO HS 06/11/20 01/25/22 History Insulin Detemir [Levemir Flextouch] 24 unit SQ HS 06/11/20 01/25/22 History Insulin Lispro [humaLOG Kwikpen] See Protocol SQ AC-TID PRN 06/11/20 01/25/22 History Latanoprost/Pf [Latanoprost 0.005% 1 drop BOTH EYES HS 06/11/20 01/25/22 History Eye Drop] glipiZIDE [Glucotrol] 10 mg PO DAILY 06/11/20 01/25/22 History metFORMIN HCL 1,500 mg PO DAILY 06/11/20 01/25/22 History Levothyroxine Sodium [Synthroid] 125 mcg PO DAILY 01/25/22 01/25/22 History Allergies Allergy/AdvReac Type Severity Reaction Status Date / Time No Known Allergies Allergy Verified 01/25/22 11:30 Physical Exam Vitals: Vital Signs Temp Pulse Resp BP Pulse Ox 01/28/22 19:36 98.4 F 68 18 170/70 97 01/28/22 19:27 68 18 01/28/22 11:20 98.6 F 64 16 183/67 98 Intake and Output 01/28/22 01/28/22 01/29/22 14:59 22:59 06:59 Intake Total 120 Balance 120 Intake: Oral 120 Other: Voiding Method Bedside Commode Bedside Commode Diaper Diaper Incontinent Incontinent # Voids 1 1 # Bowel Movements 1 Skin: Atrophic, intact. General: Thin build and comfortable appearance. Head: Normocephalic, atraumatic. Eyes: Symmetric. Pupils equal round. Ears: Symmetric. Hearing within normal limits. Mouth: Clear. Neck: Supple. Carotid without bruit. Cardiac: Regular rate and rhythm. Lungs: Clear anteriorly and posteriorly. Abdomen: Soft active nontender. Extremities: Normal tone. Neurological: Mental status: Alert, cooperative, pleasant. Cranial nerves: Symmetric facial tone and trapezius. Motor: Normal strength and isolation right side. Left arm in flexion synergy and left leg in extension synergy in both weak distally. Sensation: Intact right side and diminished left side. DTRs: Symmetric and equal throughout. Mobility: Requires physical assist for bed mobility. Results CBC & Chem 7: 01/28/22 05:39 01/28/22 05:39 Labs: Abnormal Lab Results - Last 24 Hours (Table) 01/25/22 01/28/22 01/28/22 Range/Units 16:00 05:39 05:39 RBC 2.88 L (4.10-5.20) X 10*6/uL Hgb 8.8 L (12.0-15.0) g/dL Hct 26.1 L (37.2-46.3) % Potassium 3.2 L (3.5-5.5) mmol/L Chloride 114 H (96-109) mmol/L Carbon Dioxide 18.5 L (20.0-27.5) mmol/L Est GFR (CKD-EPI)AfAm 48.4 L (60.0-200.0) Est GFR (CKD-EPI)NonAf 41.8 L (60.0-200.0) BUN/Creatinine Ratio 10.25 L (12.00-20.00) Ratio Glucose 46 L* (70-110) mg/dL POC Glucose (mg/dL) (70-110) mg/dL Calcium 8.1 L (8.7-10.3) mg/dL U Free Lambda Light Ch 5.76 H (0.00-0.38) mg/dL 01/28/22 01/28/22 01/28/22 Range/Units 07:03 07:26 11:56 RBC (4.10-5.20) X 10*6/uL Hgb (12.0-15.0) g/dL Hct (37.2-46.3) % Potassium (3.5-5.5) mmol/L Chloride (96-109) mmol/L Carbon Dioxide (20.0-27.5) mmol/L Est GFR (CKD-EPI)AfAm (60.0-200.0) Est GFR (CKD-EPI)NonAf (60.0-200.0) BUN/Creatinine Ratio (12.00-20.00) Ratio Glucose (70-110) mg/dL POC Glucose (mg/dL) 61 L 68 L 206 H (70-110) mg/dL Calcium (8.7-10.3) mg/dL U Free Lambda Light Ch (0.00-0.38) mg/dL 01/28/22 01/28/22 Range/Units 17:02 20:35 RBC (4.10-5.20) X 10*6/uL Hgb (12.0-15.0) g/dL Hct (37.2-46.3) % Potassium (3.5-5.5) mmol/L Chloride (96-109) mmol/L Carbon Dioxide (20.0-27.5) mmol/L Est GFR (CKD-EPI)AfAm (60.0-200.0) Est GFR (CKD-EPI)NonAf (60.0-200.0) BUN/Creatinine Ratio (12.00-20.00) Ratio Glucose (70-110) mg/dL POC Glucose (mg/dL) 167 H 130 H (70-110) mg/dL Calcium (8.7-10.3) mg/dL U Free Lambda Light Ch (0.00-0.38) mg/dL Assessment and Plan (1) Contusion of left hip Current Visit: Yes Status: Acute Code(s): S70.02XA - CONTUSION OF LEFT HIP, INITIAL ENCOUNTER SNOMED Code(s): 64477391 (2) Weakness Current Visit: Yes Status: Acute Code(s): R53.1 - WEAKNESS SNOMED Code(s): 09280358 Plan: Comments and plan: At this time patient has gait disturbance due to stroke with left hemiparesthesias. Safety concerns noted. Has demonstrated ability tolerate and benefit from therapies. Appears to have a discharge plan as well. At this time patient realistic about the need for further therapy upon discharge, i.e. inpatient rehab, and is agreeable.
[2022-01-29] MEDS: SODIUM CHLORIDE 0.9% 1,000 ML IV SCH (05:06)
[2022-01-29] MEDS: LEVOTHYROXINE 125 MCG TAB PO SCH (05:06)
[2022-01-29 05:27] VITALS: BP 166/55; PULSE 63; RESP 16; TEMP 98.3
[2022-01-29] MEDS ORDERED: INSULIN DETEMIR (LEVEMIR) 100 UNIT/ML SYR SQ SCH (07:00)
[2022-01-29 07:04] LABS: Glucose,Whole Blood 147 mg/dL (70-110)
[2022-01-29] MEDS: CYANOCOBALAMIN 1,000 MCG/ML 1 ML VIAL IM SCH (08:42)
[2022-01-29] MEDS: INSULIN ASPART (NovoLOG) 100 UNIT/ML VIAL SQ SCH (08:42)
[2022-01-29] MEDS: CLOPIDOGREL 75 MG TAB PO SCH (08:42)
[2022-01-29] MEDS: amLODIPine 5 MG TAB PO SCH (08:43)
[2022-01-29] MEDS: carvediloL 12.5 MG TAB PO SCH (08:43)
[2022-01-29] MEDS: FOLIC ACID 1 MG TAB PO SCH (08:43)
[2022-01-29 08:53] LABS: Basophils # (A) 0.04 X 10*3/uL (0.00-0.10); Basophils % (A) 0.8 %; Eosinophils # (A) 0.19 X 10*3/uL (0.04-0.35); Eosinophils % (A) 3.9 %; HGB 9.1 g/dL (12.0-15.0); Immature Grans, Automated 0.4 %; Lymphocytes # (A) 1.14 X 10*3/uL (0.90-5.00); Lymphocytes % (A) 23.4 %; MCH 31.3 pg (27.0-32.0); MCV 89.3 fL (80.0-97.0); Mean Platelet Volume 9.8 fL (9.5-12.2); Monocytes % (A) 8.2 %; NRBC Per 100 WBC 0 /100 WBCS (0.0-0.0); Neutrophils # (A) 3.09 X 10*3/uL (1.80-7.70); Neutrophils % (A) 63.3 %; Platelet Count 226 X 10*3/uL (140-440); RBC 2.91 X 10*6/uL (4.10-5.20); RDW 13.1 % (11.5-14.5); WBC 4.88 X 10*3/uL (4.50-10.00)
[2022-01-29] MEDS ORDERED: lisinopriL 10 MG TAB PO SCH (09:00)
[2022-01-29 09:20] LABS: African American GFR (CKD) 52.6 (60.0-200.0); Anion Gap 10.4 mmol/L (10.00-18.00); BUN/Creat Ratio 10.89 Ratio (12.00-20.00); Blood Urea Nitrogen 12.2 mg/dL (9.0-27.0); Carbon Dioxide 19.2 mmol/L (20.0-27.5); Non-African American GFR(CKD) 45.4 (60.0-200.0); Potassium 3.5 mmol/L (3.5-5.5)
[2022-01-29 11:30] LABS: Free Kappa Lt Chain Qnt, Urine 31.44 mg/dL (0.00-3.29)
--- NOTE | 2022-01-29 13:25 | P.DS ---
Providers Date of admission: 01/26/22 08:31 Attending physician: Chrissy Salcedo MD Consults: 01/25/22 16:35 Consult Physician Routine Consulting Provider: David Lee Consult Reason/Comments: Presyncope, history of dizziness, confusion Do you want consulting provider notified?: Yes 01/27/22 11:48 Consult Physician Urgent Consulting Provider: Uzair Olvera Consult Reason/Comments: acute CVA Do you want consulting provider notified?: Yes 01/28/22 12:12 Consult Physician Urgent Consulting Provider: Willie Kirby Consult Reason/Comments: in pt rehab Do you want consulting provider notified?: Yes Primary care physician: Kyara Stockton - Discharge Diagnosis(es) (1) CVA (cerebral vascular accident) Status: Acute Priority: High Onset Date: ~01/26/22 Hospital Course: HPI from H&P admission: "81 years old Female who has past medical history significant for hypertension hyperlipidemia hypothyroidism diabetes mellitus glaucoma osteoarthritis osteoporosis, presented to the emergency department after she experienced a fall, no actual syncopal episodes reported, apparently she was going to the bathroom and suddenly had dizziness and she was confused and was not sure where she was, she also told me that she felt her vision was darkened but she is very clear that she didn't lose consciousness, patient fell on the left side, patient after fall was unable to get up and ambulate. She had left-sided hip pain. Patient later on became better pain improved and she was able to move her legs. Patient was seen in emergency department hip x-ray showed no acute abnormalities in the pelvis and the left hip, chest x-ray showed no acute cardio pulmonary process, she did complain about some left upper arm weakness as well to the nursing staff therefore computed tomography scan was done which was negative for any acute finding. Patient was admitted to hospital medicine service under observation for post fall evaluation physical therapy evaluation discharge planning Also please note the daughter bedside reported that patient is having some issues with memory and confusion, she lives with her who has dementia and she is maintained caregiver. Overall poor appetite and nutritional status not eating well, also her sleep is compromised" Patient was admitted with left sided weakness. She was seen by neurology, Dr. White and who reviewed CAT scan and brain MRI that demonstrated right basal ganglia and mclain radiata infarcts. There was also moderate diffuse cerebral atrophy and advanced chronic small vessel ischemic changes. New patchy fluid signal in the left side mastoid air cells raises concern for developing mastoiditis, but there were no clinical signs to suggest this. She had been on ASA 162 mg daily, and therefore Plavix 75 mg was added. She will be on ASA 81 mg for 21 days then this could be discontinued as she can be considered to have failed aspirin primary prevention. She was evaluated by PT and OT, PT reports moderate assist bed mobility and two-person maximal assistance for transfers. Standing balance poor. OT reports minimal assistance for feeding and grooming, maximal assistance upper dressing and two-person total assistance for bathing. She was previously independent in her ADLs and was living at home with her . she was deemed a good candidate for inpatient rehab after she was evaluated by physiatry. Seen by cardiology for known heart disease including CABG 2010. Carotid Doppler revealed less than 30% stenosis in both ICA. Antegrade flow in both vertebral arteries. Hemoglobin A1c 7.2. Her prior hemoglobin A1c was 12.4 on 11/12/2021. changes were made to her home dose insulin. Lipid panel showed cholesterol 175, LDL 112, HDL 40 and triglycerides 112. Increased Lipitor from 40-80 mg daily. Target LDL <70. Metoprolol was changed to Coreg as she was bradycardic and hypertensive. Patient was observed for an additional 2 days were she remained stable and was cleared by beurology for discharge to [facility] Patient Condition at Discharge: Good Plan - Discharge Summary Discharge Rx Participant: Yes New Discharge Prescriptions: New carvediloL [Coreg*] 12.5 mg PO BID-W/MEALS 30 Days #60 tab Insulin Detemir (Levemir) [Levemir] 10 unit SQ DAILY@0700 30 Days #300 units Atorvastatin [Lipitor] 80 mg PO HS 30 Days #30 tab Famotidine [Pepcid] 20 mg PO HS 30 Days #30 tab Cyanocobalamin [Vitamin B-12 Injection] 1,000 mcg IM DAILY 4 Days #4 each Aspirin 81 mg PO DAILY 17 Days #17 tab Folic Acid 1 mg PO DAILY tab Clopidogrel [Plavix] 75 mg PO DAILY 30 Days #30 tab Ergocalciferol [Vitamin D2 (1250 Mcg = 06876 Iu)] 1,250 mcg PO Q7D cap Continue Losartan Potassium 100 mg PO DAILY@1400 glipiZIDE [Glucotrol] 10 mg PO DAILY metFORMIN HCL 1,500 mg PO DAILY Insulin Lispro [humaLOG Kwikpen] See Protocol SQ AC-TID PRN PRN Reason: Blood Sugar - High Latanoprost/Pf [Latanoprost 0.005% Eye Drop] 1 drop BOTH EYES HS Levothyroxine Sodium [Synthroid] 125 mcg PO DAILY Discontinued Metoprolol Tartrate [Lopressor] 100 mg PO DAILY@1400 Aspirin [Adult Low Dose Aspirin EC] 162 mg PO HS Atorvastatin [Lipitor] 40 mg PO HS Insulin Detemir [Levemir Flextouch] 24 unit SQ HS Discharge Medication List Losartan Potassium 100 mg PO DAILY@1400 11/16/13 [History] Insulin Lispro [humaLOG Kwikpen] See Protocol SQ AC-TID PRN 06/11/20 [History] Latanoprost/Pf [Latanoprost 0.005% Eye Drop] 1 drop BOTH EYES HS 06/11/20 [History] glipiZIDE [Glucotrol] 10 mg PO DAILY 06/11/20 [History] metFORMIN HCL 1,500 mg PO DAILY 06/11/20 [History] Levothyroxine Sodium [Synthroid] 125 mcg PO DAILY 01/25/22 [History] Aspirin 81 mg PO DAILY 17 Days #17 tab 01/29/22 [Rx] Atorvastatin [Lipitor] 80 mg PO HS 30 Days #30 tab 01/29/22 [Rx] Clopidogrel [Plavix] 75 mg PO DAILY 30 Days #30 tab 01/29/22 [Rx] Cyanocobalamin [Vitamin B-12 Injection] 1,000 mcg IM DAILY 4 Days #4 each 01/29/22 [Rx] Ergocalciferol [Vitamin D2 (1250 Mcg = 93468 Iu)] 1,250 mcg PO Q7D cap 01/29/22 [Rx] Famotidine [Pepcid] 20 mg PO HS 30 Days #30 tab 01/29/22 [Rx] Folic Acid 1 mg PO DAILY tab 01/29/22 [Rx] Insulin Detemir (Levemir) [Levemir] 10 unit SQ DAILY@0700 30 Days #300 units 01/29/22 [Rx] carvediloL [Coreg*] 12.5 mg PO BID-W/MEALS 30 Days #60 tab 01/29/22 [Rx] Follow up Appointment(s)/Referral(s): Wil Pacheco MD [STAFF PHYSICIAN] - 1 Week Kyara Stockton MD [Primary Care Provider] - 1-2 days Patient Instructions/Handouts: Fall Prevention for Older Adults (ED), Hip Pain (ED) Discharge Disposition: DC/TRNS TO INPATIENT REHAB FAC Care Plan Goals (MU): Inpatient Rehab
== END 2022-01-29 11:50 | DRG 65 ==
LOC: EC 21:12 → 5NMEDONC 01-25 01:00 → OBSVTOIN 01-26 08:31
PROVIDERS: ADMIT Internal Medicine; ATTEND Internal Medicine
DX: I63.89 Other cerebral infarction (principal); G81.94 Hemiplegia, unspecified affecting left nondominant side; N17.9 Acute kidney failure, unspecified; S70.02XA Contusion of left hip, initial encounter; I10 Essential (primary) hypertension; E78.5 Hyperlipidemia, unspecified; E03.9 Hypothyroidism, unspecified; E11.9 Type 2 diabetes mellitus without complications; M19.90 Unspecified osteoarthritis, unspecified site; H40.9 Unspecified glaucoma; M81.0 Age-related osteoporosis without current pathological fracture; I25.10 Atherosclerotic heart disease of native coronary artery without angina pectoris; H70.92 Unspecified mastoiditis, left ear; I11.0 Hypertensive heart disease with heart failure; I50.9 Heart failure, unspecified; R29.704 NIHSS score 4; R29.810 Facial weakness; R32 Unspecified urinary incontinence; W01.0XXA Fall on same level from slipping, tripping and stumbling without subsequent striking against object, initial encounter; E11.319 Type 2 diabetes mellitus with unspecified diabetic retinopathy without macular edema; E11.649 Type 2 diabetes mellitus with hypoglycemia without coma; E53.8 Deficiency of other specified B group vitamins; E55.9 Vitamin D deficiency, unspecified; G25.81 Restless legs syndrome; Z95.1 Presence of aortocoronary bypass graft; Z87.891 Personal history of nicotine dependence; I25.2 Old myocardial infarction; Z79.4 Long term (current) use of insulin; Z79.82 Long term (current) use of aspirin; Z79.84 Long term (current) use of oral hypoglycemic drugs; Z79.890 Hormone replacement therapy; Z79.899 Other long term (current) drug therapy
CPT/HCPCS: 36415; 70450; 70553; 71045; 73502; 76770; 80048; 80053; 80061; 81001; 82306; 82570; 82607; 82652; 82746; 82947; 83036; 83735; 83883; 83935; 84100; 84156; 84300; 84439; 84443; 84484; 84540; 85025; 85610; 85730; 93005; 93306; 93880; 94760; 96360; 99285

== ENCOUNTER 2022-07-24 09:43 | Day surgery (SDC) | payer MEDICARE ==
[2022-07-24] MEDS ORDERED: SODIUM CHLORIDE 0.9% 500 ML 500 ML IV ONE (09:58)
[2022-07-24 10:25] VITALS: TEMP 97.6
[2022-07-24 10:29] LABS: Glucose,Whole Blood 172 mg/dL (70-110)
[2022-07-24] MEDS ORDERED: fentaNYL (PF) 50 MCG/ML 2 ML AMP ONE (11:49)
[2022-07-24] MEDS ORDERED: BENZOCAINE SPRAY 1 CAN TOPICAL ONE ×2 (13:10→13:15)
[2022-07-24] MEDS ORDERED: MIDAZOLAM 2 MG/2 ML VIAL IVP ONE (13:17)
[2022-07-24] MEDS ORDERED: fentaNYL (PF) 50 MCG/ML 2 ML AMP IVP ONE (13:17)
[2022-07-24 13:29] VITALS: RESP 16
--- NOTE | 2022-07-24 13:37 | P.PCN ---
Date of Procedure: 07/24/22 Description of Procedure: Indication: Evaluation of intracardiac thrombus Procedure Description: After explaining the procedure to the patient, it's risk and complications, blood pressure, heart rate and O2 saturation were monitored. The throat was sprayed with Cetacaine. Patient received 1 mg intravenous Versed, 50 mcg intravenous fentanyl. The probe was introduced into the esophagus without difficulty. Images were obtained. Following that, the probe was removed. There was no immediate complication. Findings: Left atrial size is normal, left atrial appendage is normal. Left ventricular size and systolic function are normal. The aortic valve, mitral valve, tricuspid and pulmonic valves are normal. Mild atherosclerotic changes of the descending thoracic aorta are noted. No pericardial effusion was noted. Intra- atrial septal aneurysm formation was noted with [id number] shunting with con trast bubble study Doppler: Pulse wave and color Doppler were obtained, and showed mild mitral and trace pulmonic regurgitation. No evidence of shunting by color Doppler study was noted. Conclusion: 1. Normal appearance of the left atrial appendage 2. Normal limits ventricle size and systolic function 3. 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 Mild mitral and trace pulmonic regurgitation 5. Mild atherosclerotic changes of the descending thoracic aorta
[2022-07-24] MEDS ORDERED: SODIUM CHLORIDE 0.9% 1,000 ML IV SCH (13:45)
[2022-07-24] MEDS ORDERED: NON FORMULARY DRUG (Losartan Potassium [Losartan Potassium] 100 MG Tablet) PO SCH (14:00)
[2022-07-24 14:19] VITALS: BP 148/72; PULSE 72
[2022-07-24] MEDS ORDERED: carvediloL 12.5 MG TAB PO SCH (17:30)
[2022-07-24] MEDS ORDERED: ATORVASTATIN 80 MG TAB PO SCH (21:00)
[2022-07-25] MEDS ORDERED: CLOPIDOGREL 75 MG TAB PO SCH (09:00)
[2022-07-25] MEDS ORDERED: LEVOTHYROXINE 125 MCG TAB PO SCH (09:00)
[2022-07-25] MEDS ORDERED: ASPIRIN 81 MG PO SCH (09:00)
[2022-07-25] MEDS ORDERED: glipiZIDE 10 MG TAB PO SCH (09:00)
== END 2022-07-24 14:38 | disposition home or self-care (01) ==
LOC: CATHCVL 09:43
PROVIDERS: ATTEND Internal Medicine Interventional Cardiology
DX: I37.1 Nonrheumatic pulmonary valve insufficiency (principal); I25.3 Aneurysm of heart; I70.0 Atherosclerosis of aorta; Z86.73 Personal history of transient ischemic attack (TIA), and cerebral infarction without residual deficits
CPT/HCPCS: 93312; 93320; 93325; J2250; J3010

== ENCOUNTER 2022-10-03 15:20 | Emergency (ER) | payer MEDICARE ==
[2022-10-03 15:30] VITALS: RESP 19
[2022-10-03 16:18] LABS: Appearance,Urine Clear (Clear); Bilirubin,Urine Negative (Negative); Blood,Urine Negative (Negative); Color,Urine Yellow; Glucose,Urine (UA) 4+ (Negative); Hyaline Casts,Urine 5 /lpf (0-2); Ketones,Urine 1+ (Negative); Leukocyte Esterase,Urine Negative (Negative); Mucus,Urine Rare /hpf; Nitrite,Urine Negative (Negative); Protein,Urine 2+ (Negative); RBC,Urine 1 /hpf (0-5); Specific Gravity,Urine 1.014 (1.001-1.035); Squamous Epithelial Cell,Urine 1 /hpf (0-4); Urobilinogen,Urine <2.0 mg/dL (<2.0); WBC,Urine <1 /hpf (0-5)
[2022-10-03] MEDS ORDERED: SODIUM CHLORIDE 0.9% 500 ML 500 ML IV STA (16:22)
[2022-10-03 16:45] LABS: Basophils % (A) 0 %; Eosinophils % (A) 0 %; HCT 26.7 % (34.0-46.0); HGB 9.4 gm/dL (11.4-16.0); Lymphocytes # (A) 0.8 k/uL (1.0-4.8); Lymphocytes % (A) 12 %; MCH 31.5 pg (25.0-35.0); MCHC 35.3 g/dL (31.0-37.0); MCV 89.3 fL (80.0-100.0); Mean Platelet Volume 7.1; Monocytes # (A) 0.3 k/uL (0-1.0); Monocytes % (A) 5 %; Neutrophils # (A) 5.3 k/uL (1.3-7.7); Neutrophils % (A) 81 %; Platelet Count 292 k/uL (150-450); Poikilocytosis Slight; RBC 2.99 m/uL (3.80-5.40); RDW 13.3 % (11.5-15.5); WBC 6.6 k/uL (3.8-10.6)
--- NOTE | 2022-10-03 16:54 | ED ---
Weakness HPI - General Chief complaint: Weakness Stated complaint: UTI Time Seen by Provider: 10/03/22 15:23 Source: patient, EMS Mode of arrival: EMS Limitations: no limitations - History of Present Illness Initial comments: This patient is an 82-year-old woman who presents to have evaluation because she is not feeling well. She states she is feeling some generalized fatigue and a little bit of weakness. She states things been getting worse over a couple of days or so. She also notes that her urine is a little darker and there is very mild dysuria. She states she took her temperature this morning and it was 100.6 she is denying cough or dyspnea. No sinus pressure or congestion. No headache or neck stiffness. No change in all movements or any vomiting today. She states she did have a couple episodes of vomiting 1 week ago but none since that time. MD Complaint: generalized weakness Onset/Timin -: days(s) Severity scale (1-10): 0 Improves with: none Worsens with: none Associated Symptoms: dysuria, fever/chills - Related Data Home Medications Medication Instructions Recorded Confirmed Losartan Potassium 100 mg PO DAILY@1400 11/16/13 10/03/22 Latanoprost/Pf [Latanoprost 0.005% 1 drop BOTH EYES HS 06/11/20 10/03/22 Eye Drop] glipiZIDE [Glucotrol] 10 mg PO DAILY 06/11/20 10/03/22 metFORMIN HCL 1,500 mg PO DAILY 06/11/20 10/03/22 Levothyroxine Sodium [Synthroid] 125 mcg PO DAILY 01/25/22 10/03/22 Acetaminophen [Tylenol Extra 500 mg PO HS PRN 07/17/22 10/03/22 Strength] Insulin Detemir (Levemir) [Levemir] 16 unit SQ DAILY@0700 07/17/22 10/03/22 Dapagliflozin Propanediol [Farxiga] 5 mg PO DAILY 09/08/22 10/03/22 Tolterodine Tartrate [Tolterodine 4 mg PO HS 09/08/22 10/03/22 Tartrate ER] Previous Rx's Medication Instructions Recorded Aspirin 81 mg PO DAILY 17 Days #17 tab 01/29/22 Atorvastatin [Lipitor] 80 mg PO HS 30 Days #30 tab 01/29/22 Clopidogrel [Plavix] 75 mg PO DAILY 30 Days #30 tab 01/29/22 Ergocalciferol [Vitamin D2 (1250 1,250 mcg PO Q7D cap 01/29/22 Mcg = 96808 Iu)] Famotidine [Pepcid] 20 mg PO HS 30 Days #30 tab 01/29/22 Folic Acid 1 mg PO DAILY tab 01/29/22 Allergies Allergy/AdvReac Type Severity Reaction Status Date / Time No Known Allergies Allergy Verified 10/03/22 17:09 Review of Systems ROS Statement: Those systems with pertinent positive or pertinent negative responses have been documented in the HPI. ROS Other: All systems not noted in ROS Statement are negative. Constitutional: Reports: fever, weakness ENT: Denies: congestion Respiratory: Denies: cough, dyspnea Cardiovascular: Denies: chest pain, palpitations, orthopnea, edema, syncope Gastrointestinal: Reports: as per HPI. Denies: abdominal pain, nausea, vomiting, diarrhea Genitourinary: Reports: dysuria. Denies: hematuria Musculoskeletal: Denies: back pain Skin: Denies: rash Neurological: Denies: headache, weakness, confusion Past Medical History Past Medical History: Coronary Artery Disease (CAD), Cancer, Heart Failure, Diabetes Mellitus, GERD/Reflux, Hyperlipidemia, Hypertension, Myocardial Infarction ([place]), Osteoarthritis (OA), Thyroid Disorder Additional Past Medical History / Comment(s): has seen retinal specialist for shots. frequent urination with some leakage. uses w/c Last Myocardial Infarction Date:: 2010 History of Any Multi-Drug Resistant Organisms: None Reported Past Surgical History: Coronary Bypass/CABG, Orthopedic Surgery Additional Past Surgical History / Comment(s): cabg 2010, cataracts. left hip replaced. surgery for breast and colon cancer. Past Anesthesia/Blood Transfusion Reactions: No Reported Reaction Additional Past Anesthesia/Blood Transfusion Reaction / Comment(s): no blood transfusions Past Psychological History: No Psychological Hx Reported Smoking Status: Former smoker Past Alcohol Use History: None Reported Past Drug Use History: None Reported - Past Family History Father Family Medical History: Cancer Additional Family Medical History / Comment(s): lung cancer Mother Additional Family Medical History / Comment(s): heart issues General Exam Limitations: no limitations General appearance: alert, in no apparent distress Head exam: Present: atraumatic, normocephalic Eye exam: Present: normal appearance. Absent: scleral icterus, conjunctival injection Neck exam: Present: normal inspection, full ROM Respiratory exam: Present: normal lung sounds bilaterally. Absent: respiratory distress, wheezes, rales, rhonchi, stridor Cardiovascular Exam: Present: regular rate, normal rhythm, systolic murmur. Absent: diastolic murmur GI/Abdominal exam: Present: soft. Absent: distended, tenderness, guarding, rebound, rigid, mass Extremities exam: Present: normal inspection, normal capillary refill. Absent: pedal edema, calf tenderness Back exam: Present: normal inspection. Absent: CVA tenderness (R), CVA tenderness (L) Skin exam: Present: warm, dry, intact, normal color. Absent: rash Course Vital Signs 10/03/22 10/03/22 10/03/22 15:26 16:55 18:31 Temperature 98 F 98.2 F Pulse Rate 77 73 75 Respiratory 19 19 19 Rate Blood Pressure 181/70 168/73 157/88 O2 Sat by Pulse 99 95 97 Oximetry EKG Findings - EKG Comments: EKG Findings:: Suspected old septal MN based on Q waves in leads V1 and V2 - EKG Results: EKG: interpreted by GABRIEL, sinus rhythm (Rate 75 bpm), normal axis, normal ST/T Medical Decision Making - Medical Decision Making This patient is an 82-year-old woman who presents to have evaluation in relation to generalized weakness and fatigue. Patient found to be Covid positive. She is denying dyspnea currently. We discussed appropriate further care and follow- up as well as return parameters Was pt. sent in by a medical professional or institution (, PA, VALVE PIPE IRRIGATOR, urgent care, hospital, or senior living...) When possible be specific @ -[No] Did you speak to anyone other than the patient for history (EMS, parent, family, police, friend...)? What history was obtained from this source @ -[Family Did you review nursing and triage notes (agree or disagree)? Why? @ -[I reviewed and agree with nursing and triage notes] Were old charts reviewed (outside hosp., previous admission, EMS record, old EKG, old radiological studies, urgent care reports/EKG's, senior living records)? Report findings @ -[No old charts were reviewed] Differential Diagnosis (chest pain, altered mental status, abdominal pain women, abdominal pain men, vaginal bleeding, weakness, fever, dyspnea, syncope, headache, dizziness, GI bleed, back pain, seizure, CVA, palpatations, mental health, musculoskeletal)? @ -[Differential Weakness: Hypoglycemia, shock, sepsis, hyponatremia, anemia, infection, [place], ETOH, adverse medicine reaction, overdose, stroke, this is not meant to be an all-inclusive list. EKG interpreted by me (3pts min.). @ -[As above] X-rays interpreted by me (1pt min.). @ -[None done] CT interpreted by me (1pt min.). @ -[None done] U/S interpreted by me (1pt. min.). @ -[None done] What testing was considered but not performed or refused? (CT, X-rays, U/S, labs)? Why? @ -[None] What meds were considered but not given or refused? Why? @ -[None] Did you discuss the management of the patient with other professionals (professionals i.e. , PA, VALVE PIPE IRRIGATOR, lab, RT, psych nurse, mental health social worker, composer teaching artist, teacher, policy officer, casework manager)? Give summary @ -[No] Was smoking cessation discussed for >3mins.? @ -[No] Was critical care preformed (if so, how long)? @ -[No] Were there social determinants of health that impacted care today? How? (Ho melessness, low income, unemployed, alcoholism, drug addiction, transportation, low edu. Level, literacy, decrease access to med. care, retirement, rehab)? @ -[No] Was there de-escalation of care discussed even if they declined (Discuss DNR or withdrawal of care, Hospice)? DNR status @ -[No] What co-morbidities impacted this encounter? (DM, HTN, Smoking, COPD, CAD, Cancer, CVA, ARF, Chemo, Hep., AIDS, mental health diagnosis, sleep apnea, morbid obesity)? @ -[None] Was patient admitted / discharged? Hospital course, mention meds given and route, prescriptions, significant lab abnormalities, going to OR and other pertinent info. @ -[Discharged Undiagnosed new problem with uncertain prognosis? @ -[No] Drug Therapy requiring intensive monitoring for toxicity (Heparin, Nitro, Insulin, Cardizem)? @ -[No] Were any procedures done? @ -[No] Diagnosis/symptom? @ -[Acute Covid 19 infection, uncomplicated Acute, or Chronic, or Acute on Chronic? @ -[default] Uncomplicated (without systemic symptoms) or Complicated (systemic symptoms)? @ -[default] Side effects of treatment? @ -[No] Exacerbation, Progression, or Severe Exacerbation? @ -[No] Poses a threat to life or bodily function? How? (Chest pain, [place], [place], pneumonia, PE, COPD, DKA, ARF, appy, cholecystitis, CVA, Diverticulitis, Homicidal, Suicidal, threat to staff... and all critical care pts) @ -[No] - Lab Data Result diagrams: 10/03/22 16:36 10/03/22 16:36 Lab Results 10/03/22 10/03/22 10/03/22 Range/Units 15:41 15:41 16:36 WBC 6.6 (3.8-10.6) k/uL RBC 2.99 L (3.80-5.40) m/uL Hgb 9.4 L (11.4-16.0) gm/dL Hct 26.7 L (34.0-46.0) % MCV 89.3 (80.0-100.0) fL MCH 31.5 (25.0-35.0) pg MCHC 35.3 (31.0-37.0) g/dL RDW 13.3 (11.5-15.5) % Plt Count 292 (150-450) k/uL MPV 7.1 Neutrophils % 81 % Lymphocytes % 12 % Monocytes % 5 % Eosinophils % 0 % Basophils % 0 % Neutrophils # 5.3 (1.3-7.7) k/uL Lymphocytes # 0.8 L (1.0-4.8) k/uL Monocytes # 0.3 (0-1.0) k/uL Eosinophils # 0.0 (0-0.7) k/uL Basophils # 0.0 (0-0.2) k/uL Poikilocytosis Slight Sodium (137-145) mmol/L Potassium (3.5-5.1) mmol/L Chloride (98-107) mmol/L Carbon Dioxide (22-30) mmol/L Anion Gap mmol/L BUN (7-17) mg/dL Creatinine (0.52-1.04) mg/dL Est GFR (CKD-EPI)AfAm (>60 ml/min/1.73 sqM) Est GFR (CKD-EPI)NonAf (>60 ml/min/1.73 sqM) Glucose (74-99) mg/dL Calcium (8.4-10.2) mg/dL Total Bilirubin (0.2-1.3) mg/dL AST (14-36) U/L ALT (4-34) U/L Alkaline Phosphatase (38-126) U/L Total Protein (6.3-8.2) g/dL Albumin (3.5-5.0) g/dL Urine Color Yellow Urine Appearance Clear (Clear) Urine pH 6.0 (5.0-8.0) Ur Specific [place] 1.014 (1.001-1.035) Urine Protein 2+ H (Negative) Urine Glucose (UA) 4+ H (Negative) Urine Ketones 1+ H (Negative) Urine Blood Negative (Negative) Urine Nitrite Negative (Negative) Urine Bilirubin Negative (Negative) Urine Urobilinogen <2.0 (<2.0) mg/dL Ur Leukocyte Esterase Negative (Negative) Urine RBC 1 (0-5) /hpf Urine WBC <1 (0-5) /hpf Ur Squamous Epith Cells 1 (0-4) /hpf Hyaline Casts 5 H (0-2) /lpf Urine Mucus Rare H (None) /hpf Coronavirus (PCR) Detected A (Not Detectd) 10/03/22 Range/Units 16:36 WBC (3.8-10.6) k/uL RBC (3.80-5.40) m/uL Hgb (11.4-16.0) gm/dL Hct (34.0-46.0) % MCV (80.0-100.0) fL MCH (25.0-35.0) pg MCHC (31.0-37.0) g/dL RDW (11.5-15.5) % Plt Count (150-450) k/uL MPV Neutrophils % % Lymphocytes % % Monocytes % % Eosinophils % % Basophils % % Neutrophils # (1.3-7.7) k/uL Lymphocytes # (1.0-4.8) k/uL Monocytes # (0-1.0) k/uL Eosinophils # (0-0.7) k/uL Basophils # (0-0.2) k/uL Poikilocytosis Sodium 137 (137-145) mmol/L Potassium 3.9 (3.5-5.1) mmol/L Chloride 105 (98-107) mmol/L Carbon Dioxide 23 (22-30) mmol/L Anion Gap 9 mmol/L BUN 24 H (7-17) mg/dL Creatinine 1.35 H (0.52-1.04) mg/dL Est GFR (CKD-EPI)AfAm 42 (>60 ml/min/1.73 sqM) Est GFR (CKD-EPI)NonAf 36 (>60 ml/min/1.73 sqM) Glucose 123 H (74-99) mg/dL Calcium 8.7 (8.4-10.2) mg/dL Total Bilirubin 0.5 (0.2-1.3) mg/dL AST 35 (14-36) U/L ALT 28 (4-34) U/L Alkaline Phosphatase 60 (38-126) U/L Total Protein 6.5 (6.3-8.2) g/dL Albumin 3.5 (3.5-5.0) g/dL Urine Color Urine Appearance (Clear) Urine pH (5.0-8.0) Ur Specific [place] (1.001-1.035) Urine Protein (Negative) Urine Glucose (UA) (Negative) Urine Ketones (Negative) Urine Blood (Negative) Urine Nitrite (Negative) Urine Bilirubin (Negative) Urine Urobilinogen (<2.0) mg/dL Ur Leukocyte Esterase (Negative) Urine RBC (0-5) /hpf Urine WBC (0-5) /hpf Ur Squamous Epith Cells (0-4) /hpf Hyaline Casts (0-2) /lpf Urine Mucus (None) /hpf Coronavirus (PCR) (Not Detectd) Disposition Clinical Impression: COVID-19 Disposition: HOME SELF-CARE Condition: Good Instructions (If sedation given, give patient instructions): COVID-19 (Bronson virus Disease 2019) (ED) Is patient prescribed a controlled substance at d/c from ED?: No Referrals: Kyara Stockton MD [Primary Care Provider] - 1-2 days
[2022-10-03 17:07] LABS: Albumin 3.5 g/dL (3.5-5.0); Calcium 8.7 mg/dL (8.4-10.2); Potassium 3.9 mmol/L (3.5-5.1); Total Bilirubin 0.5 mg/dL (0.2-1.3); Total Protein 6.5 g/dL (6.3-8.2)
[2022-10-03 18:34] VITALS: BP 157/88; PULSE 75; TEMP 98.2
== END 2022-10-03 18:34 | disposition home or self-care (01) ==
LOC: EC 15:20
DX: U07.1 COVID-19 (principal); I25.10 Atherosclerotic heart disease of native coronary artery without angina pectoris; I11.0 Hypertensive heart disease with heart failure; I50.9 Heart failure, unspecified; E11.9 Type 2 diabetes mellitus without complications; E78.5 Hyperlipidemia, unspecified; I25.2 Old myocardial infarction; K21.9 Gastro-esophageal reflux disease without esophagitis; M19.90 Unspecified osteoarthritis, unspecified site; Z87.891 Personal history of nicotine dependence; Z79.890 Hormone replacement therapy; Z79.4 Long term (current) use of insulin; Z79.84 Long term (current) use of oral hypoglycemic drugs; Z79.899 Other long term (current) drug therapy
CPT/HCPCS: 36415; 80053; 81001; 85025; 87635; 93005; 96360; 96361; 99285

== ENCOUNTER → 2023-01-13 | Outpatient (CLI) | payer MEDICARE ==
[2023-01-13 13:14] LABS: Creatinine,Urine Random 54.4 mg/dL; Protein/Creatinine Ratio,Urine 1.048
[2023-01-13 16:08] LABS: HCT 29.9 % (37.2-46.3); MCH 30.2 pg (27.0-32.0); MCHC 33.4 d/dL (32.0-37.0); MCV 90.3 FL (80.0-97.0); Mean Platelet Volume 9.3 FL (9.5-12.2); NRBC Per 100 WBC 0 X 10*3/uL (0.00-0.01); Platelet Count 254 X 10*3/uL (140-440); RBC 3.31 X 10*6/uL (4.10-5.20); RDW 13.4 % (11.5-14.5); WBC 7.06 X 10*3/uL (4.50-10.00)
[2023-01-13 17:19] LABS: ALT 26 U/L (8-44); AST 22 U/L (13-35); Albumin 4.5 d/dL (3.8-4.9); Alkaline Phosphatase 53 U/L (41-126); BUN/Creat Ratio 23.33 Ratio (12.00-20.00); Calcium 9.8 mg/dL (8.7-10.3); Carbon Dioxide 21.5 mmol/L (21.6-31.8); Chloride 108 mmol/L (96-109); Glucose 134 mg/dL (70-110); Magnesium 2.1 mg/dL (1.5-2.4); Phosphorus 2.7 mg/dL (2.4-5.1); Potassium 4.3 mmol/L (3.5-5.5); Sodium 143 mmol/L (135-145); Total Bilirubin 0.2 mg/dL (0.3-1.2); Total Protein 7.5 d/dL (6.2-8.2)
[2023-01-13 21:09] LABS: Appearance,Urine Clear (Clear); Bilirubin,Urine Negative (Negative); Blood,Urine Negative (Negative); Color,Urine Yellow (Yellow); Ketones,Urine Negative (Negative); Nitrite,Urine Negative (Negative); PH, Urine 5.5; Specific Gravity,Urine 1.024 (1.001-1.030); Urobilinogen,Urine 0.2 E.U./DL
[2023-01-13 21:14] LABS: Bacteria,Urine None Seen (None Seen)
[2023-01-13 22:22] LABS: Urine Creatinine 55.1 mg/dL (28.0-217.0)
== END | disposition home or self-care (01) ==
LOC: LABWHC1 11:33
PROVIDERS: ATTEND Nurse Practitioner Acute Care
DX: E55.9 Vitamin D deficiency, unspecified (principal); N18.30 Chronic kidney disease, stage 3 unspecified; N39.0 Urinary tract infection, site not specified; N25.81 Secondary hyperparathyroidism of renal origin; D63.1 Anemia in chronic kidney disease; R80.9 Proteinuria, unspecified
CPT/HCPCS: 36415; 80053; 81001; 82043; 82306; 82570; 83036; 83735; 83970; 84100; 84156; 85027; 87086

== ENCOUNTER 2023-07-15 11:08 | Inpatient (IN) | payer MEDICARE ==
[2023-07-15] MEDS ORDERED: KETOROLAC 15 MG/ML 1 ML VIAL IM STA (11:27)
[2023-07-15] MEDS ORDERED: LIDOCAINE 4% PATCH TOPICAL ONE (11:27)
--- NOTE | 2023-07-15 12:05 | ED ---
General Adult HPI - General Stated complaint: R Hip Pain Time Seen by Provider: 07/15/23 11:12 Source: RN notes reviewed - History of Present Illness Initial comments: 83-year-old female with no significant past medical history presents the emergency department with a chief complaint of fall. Patient reports that she was attempting to use the restroom at her home when the wheelchair fell out from underneath her. He reports that she fell on her right hip. She denies hitting her head or loss of consciousness. She does take Plavix. She reports that her leg is worse with movement. She denies any weakness, numbness or tingling in the extremity. - Related Data Home Medications Medication Instructions Recorded Confirmed Losartan Potassium 100 mg PO DAILY@1400 11/16/13 10/03/22 Latanoprost/Pf [Latanoprost 0.005% 1 drop BOTH EYES HS 06/11/20 10/03/22 Eye Drop] glipiZIDE [Glucotrol] 10 mg PO DAILY 06/11/20 10/03/22 metFORMIN HCL 1,500 mg PO DAILY 06/11/20 10/03/22 Levothyroxine Sodium [Synthroid] 125 mcg PO DAILY 01/25/22 10/03/22 Acetaminophen [Tylenol Extra 500 mg PO HS PRN 07/17/22 10/03/22 Strength] Insulin Detemir (Levemir) [Levemir] 16 unit SQ DAILY@0700 07/17/22 10/03/22 Dapagliflozin Propanediol [Farxiga] 5 mg PO DAILY 09/08/22 10/03/22 Tolterodine Tartrate [Tolterodine 4 mg PO HS 09/08/22 10/03/22 Tartrate ER] Previous Rx's Medication Instructions Recorded Aspirin 81 mg PO DAILY 17 Days #17 tab 01/29/22 Atorvastatin [Lipitor] 80 mg PO HS 30 Days #30 tab 01/29/22 Clopidogrel [Plavix] 75 mg PO DAILY 30 Days #30 tab 01/29/22 Ergocalciferol [Vitamin D2 (1250 1,250 mcg PO Q7D cap 01/29/22 Mcg = 05864 Iu)] Famotidine [Pepcid] 20 mg PO HS 30 Days #30 tab 01/29/22 Folic Acid 1 mg PO DAILY tab 01/29/22 Allergies Allergy/AdvReac Type Severity Reaction Status Date / Time No Known Allergies Allergy Verified 07/15/23 12:56 Review of Systems ROS Statement: Those systems with pertinent positive or pertinent negative responses have been documented in the HPI. ROS Other: All systems not noted in ROS Statement are negative. Past Medical History Past Medical History: Coronary Artery Disease (CAD), Cancer, Heart Failure, Diabetes Mellitus, GERD/Reflux, Hyperlipidemia, Hypertension, Myocardial Infarction ([place]), Osteoarthritis (OA), Thyroid Disorder Additional Past Medical History / Comment(s): has seen retinal specialist for shots. frequent urination with some leakage. uses w/c Last Myocardial Infarction Date:: 2010 History of Any Multi-Drug Resistant Organisms: None Reported Past Surgical History: Coronary Bypass/CABG, Orthopedic Surgery Additional Past Surgical History / Comment(s): cabg 2010, cataracts. left hip replaced. surgery for breast and colon cancer. Past Anesthesia/Blood Transfusion Reactions: No Reported Reaction Additional Past Anesthesia/Blood Transfusion Reaction / Comment(s): no blood transfusions Past Psychological History: No Psychological Hx Reported Smoking Status: Former smoker Past Alcohol Use History: None Reported Past Drug Use History: None Reported - Past Family History Father Family Medical History: Cancer Additional Family Medical History / Comment(s): lung cancer Mother Additional Family Medical History / Comment(s): heart issues General Exam - General Exam Comments Initial Comments: General: Alert, in no acute distress Head: atraumatic normocephalic. Eyes PERRL, EOMI intact, mucous membranes moist Respiratory: Lungs clear to auscultation bilaterally Cardiovascular: Heart rate regular rate and rhythm Abdominal: Soft without guarding or rebound Extremities: Normal inspection with full range of motion and normal capillary refill Neuroogic: alert and oriented 3, CN II-XII intact, able to ambulate with steady gait Skin: warm dry and intact with normal color Course Vital Signs 07/15/23 07/15/23 07/15/23 11:42 12:51 12:54 Temperature 97.2 F L 98 F 97.2 F L Pulse Rate 65 61 65 Respiratory 18 16 18 Rate Blood Pressure 179/77 174/72 129/77 O2 Sat by Pulse 97 97 97 Oximetry 07/15/23 16:01 Temperature 98.1 F Pulse Rate 62 Respiratory 16 Rate Blood Pressure 167/69 O2 Sat by Pulse 97 Oximetry - Reevaluation(s) Reevaluation #1: 07/15/23 14:49 showing evaluated. Patient is agreeable with the plan for CAT scan. Reevaluation #2: 07/15/23 15:50 Patient updated on results. Agreeable with the plan for admission. Reevaluation #3: 07/15/23 15:56 (Discuss with orthopedic associates who requests patient to be admitted to internal medicine with consult to Orthopedics Medical Decision Making - Medical Decision Making Was pt. sent in by a medical professional or institution (, PA, AGENCY SALES DEVELOPMENT ASSOCIATE, urgent care, hospital, or fci...) When possible be specific @ -[No] Did you speak to anyone other than the patient for history (EMS, parent, family, police, friend...)? What history was obtained from this source @ -[No] Did you review nursing and triage notes (agree or disagree)? Why? @ -[I reviewed and agree with nursing and triage notes] Were old charts reviewed (outside hosp., previous admission, EMS record, old EKG, old radiological studies, urgent care reports/EKG's, fci records)? Report findings @ -[No old charts were reviewed] Differential Diagnosis (chest pain, altered mental status, abdominal pain women, abdominal pain men, vaginal bleeding, weakness, fever, dyspnea, syncope, headache, dizziness, GI bleed, back pain, seizure, CVA, palpatations, mental health, musculoskeletal)? @ -[not applicable] EKG interpreted by me (3pts min.). @ -[As above] X-rays interpreted by me (1pt min.). @ -Right inferior and superior pubic remarkable for: Step-off suggestive of fracture, femur is intact CT interpreted by me (1pt min.). @ -CT pelvis reveals minimally displaced pubic bone fractures left greater than the right. There are remote right superior Pubic ramus fracture and bilateral inferior pubic rami fractures U/S interpreted by me (1pt. min.). @ -[None done] What testing was considered but not performed or refused? (CT, X-rays, U/S, labs)? Why? @ -[None] What meds were considered but not given or refused? Why? @ -[None] Did you discuss the management of the patient with other professionals (professionals i.e. , PA, AGENCY SALES DEVELOPMENT ASSOCIATE, lab, RT, psych nurse, licensed social worker, gin operator, teacher, credit administration officer, spring encaser)? Give summary @ -Orthopedics who recommends admitting to medicine and placing orthopedics on consult Case Discussed with Dr. Bautista who agrees and accepts the patient for admission for placement Was smoking cessation discussed for >3mins.? @ -[No] Was critical care preformed (if so, how long)? @ -[No] Were there social determinants of health that impacted care today? How? (Homelessness, low income, unemployed, alcoholism, drug addiction, transportation, low edu. Level, literacy, decrease access to med. care, snf, rehab)? @ -[No] Was there de-escalation of care discussed even if they declined (Discuss DNR or withdrawal of care, Hospice)? DNR status @ -[No] What co-morbidities impacted this encounter? (DM, HTN, Smoking, COPD, CAD, Cancer, CVA, ARF, Chemo, Hep., AIDS, mental health diagnosis, sleep apnea, morbid obesity)? @ -[None] Was patient admitted / discharged? Hospital course, mention meds given and route, prescriptions, significant lab abnormalities, going to OR and other pertinent info. @ -Admission. This is a pleasant 83-year-old female who presents the emergency department with fall. Patient had a thorough history and physical performed. Physical exam is essentially unremarkable. There is limited range of motion to right extremity secondary to pain. Patient is unable to ambulate. Patient had imaging which revealed acute on chronic pelvic rami fractures. I discussed the results in detail the patient verbalized understanding and all questions were addressed. Patient was offered pain medication however she declined at the time of evaluation. She is agreeable with the plan for admission in order to receive placement to a skilled rehab facility. Case was discussed with Dr. Bautista and [facility] please see above. Case is discussed with Dr. Lomas, ED attending who agrees with plan of care. Undiagnosed new problem with uncertain prognosis? @ -[No] Drug Therapy requiring intensive monitoring for toxicity (Heparin, Nitro, Insulin, Cardizem)? @ -[No] Were any procedures done? @ -[No] Diagnosis/symptom? @ - Pelvic rami Fractures - Fall Acute, or Chronic, or Acute on Chronic? @ -Acute Uncomplicated (without systemic symptoms) or Complicated (systemic symptoms)? @ Uncomplicated Side effects of treatment? @ -[No] Exacerbation, Progression, or Severe Exacerbation? @ -[No] Poses a threat to life or bodily function? How? (Chest pain, [place], [place], pneumonia, PE, COPD, DKA, ARF, appy, cholecystitis, CVA, Diverticulitis, Homicidal, Suicidal, threat to staff... and all critical care pts) @ -yes Disposition Clinical Impression: Pelvic fracture, Inability to ambulate due to hip Disposition: ADMITTED IP TO THIS HOSP Is patient prescribed a controlled substance at d/c from ED?: No Time of Disposition: 15:50
--- NOTE | 2023-07-15 13:05 | XR ---
EXAMINATION TYPE: XR lumbar spine 3V XR 2 views right hip and AP pelvis DATE OF EXAM: 07/15/2023 Comparison: 01/24/2022 Clinical History: 83-year-old female with fall and pain Findings: Lumbar spine: Osteopenia. Mild multilevel degenerative disc disease, more mild to moderate at L5-S1. Hypertrophic f acet arthropathy especially lower lumbar spine with degenerative trace grade 1 anterolisthesis L5-S1. Vertebral body heights are preserved. Dense atherosclerotic calcifications throughout the abdominal aorta and iliac arteries. Pelvis and right hip: Old healed fracture deformities right superior and inferior pubic rami on the right and inferiorly on the left. Mild axial joint space narrowing right hip. Partially visualized left total hip vertebropl asty. Extensive atherosclerotic calcifications throughout the visualized pelvis. There is osteopenia. No displaced fracture seen. Impression: 1. Lumbar spine: Osteopenia. Mild to moderate degenerative disc disease L5-S1. Hypertrophic facet art hropathy especially lower lumbar spine with degenerative grade 1 anterolisthesis L5-S1. No vertebral compression collapse. 2. Pelvis and right hip: Osteopenia but without any displaced acute fracture seen. Old healed fractur e deformities of the obturator rings.
--- NOTE | 2023-07-15 14:51 | XR ---
EXAMINATION TYPE: XR femur RT DATE OF EXAM: 07/15/2023 2:46 PM CLINICAL INDICATION:Female, 83 years old with history of thigh pain; COMPARISON: None TECHNIQUE: XR femur RT examined in Frontal and lateral projections. FINDINGS: Cortical step-off of the superior and inferior pubic ramus on the right. No additional evid ence of fracture. Femur appears intact. Severe atherosclerosis. IMPRESSION: Right inferior and superior pubic rami cortical step-off suggestive of fracture. The femur appears in tact.
--- NOTE | 2023-07-15 15:40 | CT ---
EXAMINATION TYPE: CT pelvis wo con DATE OF EXAM: 07/15/2023 COMPARISON: 06/11/2020 HISTORY: hx of pelvic fx, pelvic pain, r/o new fxs CT DLP: 270 mGycm Automated exposure control for dose reduction was used. FINDINGS: There is a left hip prosthesis. There is no hip fracture or dislocation. There are remote fractures involving the right superior pubic ramus and bilateral inferior pubic rami . There are minimally displaced fractures of the pubic bones bilaterally, left greater than right. IMPRESSION: 1. Minimally displaced pubic bone fractures, left greater than right. 2. Remote right superior pubic ramus fracture and bilateral inferior pubic rami fractures.
[2023-07-15] MEDS ORDERED: NALOXONE 0.4 MG/ML 1 ML VIAL IV PRN (15:59)
[2023-07-15] MEDS: SODIUM CHLORIDE 0.9% 1,000 ML IV SCH (16:44)
[2023-07-15 16:50] LABS: Basophils % (A) 1 %; Eosinophils # (A) 0.1 k/uL (0-0.7); Eosinophils % (A) 1 %; HCT 29.2 % (34.0-46.0); HGB 10.3 gm/dL (11.4-16.0); Lymphocytes # (A) 1.3 k/uL (1.0-4.8); Lymphocytes % (A) 19 %; MCHC 35.4 g/dL (31.0-37.0); MCV 93.2 fL (80.0-100.0); Mean Platelet Volume 8.1; Monocytes # (A) 0.3 k/uL (0-1.0); Monocytes % (A) 4 %; Neutrophils # (A) 5.3 k/uL (1.3-7.7); Neutrophils % (A) 74 %; Platelet Count 236 k/uL (150-450); RBC 3.13 m/uL (3.80-5.40); RDW 14.1 % (11.5-15.5); WBC 7.2 k/uL (3.8-10.6)
[2023-07-15 17:01] LABS: African American GFR (CKD) 35 (>60 ml/min/1.73 sqM); Anion Gap 11 mmol/L; Blood Urea Nitrogen 24 mg/dL (7-17); Calcium 9.2 mg/dL (8.4-10.2); Carbon Dioxide 21 mmol/L (22-30); Chloride 107 mmol/L (98-107); Glucose 245 mg/dL (74-99); Non-African American GFR(CKD) 30 (>60 ml/min/1.73 sqM); Potassium 3.7 mmol/L (3.5-5.1); Sodium 139 mmol/L (137-145)
[2023-07-15] MEDS ORDERED: ACETAMINOPHEN TAB 325 MG TAB PO PRN (18:49)
[2023-07-15] MEDS ORDERED: HYDROmorphone 1 MG/ML 1 ML SYRINGE IVP PRN (18:49)
[2023-07-15] MEDS ORDERED: ONDANSETRON 4 MG/2 ML VIAL IVP PRN (18:50)
[2023-07-15] MEDS ORDERED: DEXTROSE 50% SYRINGE 50 ML IVP PRN ×2 (18:54)
[2023-07-15 20:31] LABS: Glucose,Whole Blood 283 mg/dL (70-110)
[2023-07-15] MEDS: ATORVASTATIN 80 MG TAB PO SCH (20:40)
[2023-07-15] MEDS: HEPARIN SODIUM,PORCINE 5,000 UNIT/ML 1 ML VIAL SQ SCH (20:40)
[2023-07-15] MEDS: FAMOTIDINE 20 MG TAB PO SCH (20:42)
[2023-07-15] MEDS: INSULIN ASPART (NovoLOG) 100 UNIT/ML VIAL SQ SCH (20:43)
[2023-07-15 21:43] LABS: Glucose,Whole Blood 319 mg/dL (70-110)
[2023-07-15] MEDS: DAPAGLIFLOZIN PROPANEDIOL 5 MG TABLET PO SCH (22:00)
[2023-07-15] MEDS ORDERED: hydrALAZINE HCL 20 MG/ML 1 ML VIAL IVP PRN (22:21)
[2023-07-15] MEDS ORDERED: HYDROcodone/APAP 5-325MG 1 EACH TAB PO PRN (22:27)
[2023-07-15 23:05] LABS: Glucose,Whole Blood 308 mg/dL (70-110)
[2023-07-15] MEDS ORDERED: METOCLOPRAMIDE 5 MG/ML 2 ML VIAL IM PRN (23:25)
[2023-07-15] MEDS ORDERED: METOCLOPRAMIDE 5 MG/ML 2 ML VIAL IVP PRN (23:38)
[2023-07-15] MEDS: LATANOPROST 0.005% OPHTH DROPS 2.5 ML BTL BOTH EYES SCH (23:40)
[2023-07-16 05:43] LABS: Glucose,Whole Blood 344 mg/dL (70-110)
[2023-07-16] MEDS: SODIUM CHLORIDE 0.9% 1,000 ML IV SCH (06:23)
[2023-07-16] MEDS: LEVOTHYROXINE 125 MCG TAB PO SCH (06:24)
[2023-07-16] MEDS: INSULIN ASPART (NovoLOG) 100 UNIT/ML VIAL SQ SCH ×4 (06:24→20:55)
[2023-07-16] MEDS: carvediloL 6.25 MG TAB PO SCH (07:40)
[2023-07-16] MEDS: ASPIRIN 81 MG PO SCH (07:40)
[2023-07-16] MEDS: CLOPIDOGREL 75 MG TAB PO SCH (07:40)
[2023-07-16] MEDS: HEPARIN SODIUM,PORCINE 5,000 UNIT/ML 1 ML VIAL SQ SCH ×2 (07:41→20:55)
[2023-07-16] MEDS: FOLIC ACID 1 MG TAB PO SCH (07:41)
[2023-07-16] MEDS: OXYBUTYNIN 10 MG TAB.ER.24 PO SCH (07:41)
[2023-07-16] MEDS: PANTOPRAZOLE 40 MG/10 ML VIAL IVP SCH ×2 (07:56→20:55)
[2023-07-16] MEDS ORDERED: amLODIPine 5 MG TAB PO SCH (09:00)
[2023-07-16] MEDS ORDERED: INSULIN DETEMIR (LEVEMIR) 100 UNIT/ML SYR SQ SCH (09:00)
[2023-07-16 11:15] LABS: Glucose,Whole Blood 310 mg/dL (70-110)
--- NOTE | 2023-07-16 13:10 | P.CNOR ---
History of Present Illness - [facility] Consult date: 07/16/23 Consult reason: fracture (Pubic rami fractures) History of present illness: This is an 83-year-old female admitted through the emergency department yesterday after a fall, sustaining injury to her right hip. The patient states that she slipped out of her wheelchair onto a hardwood floor yesterday and had immediate pain in her right groin. She does have history of Pubic rami fractures in the past. On exam and x-ray in the emergency department she was found to have acute on chronic rami fractures bilaterally. We were consulted for orthopedic evaluation. Past Medical History Past Medical History: Coronary Artery Disease (CAD), Cancer, Heart Failure, Diabetes Mellitus, GERD/Reflux, Hyperlipidemia, Hypertension, Myocardial Infarction ([place]), Osteoarthritis (OA), Thyroid Disorder Additional Past Medical History / Comment(s): has seen retinal specialist for shots. frequent urination with some leakage. uses w/c Last Myocardial Infarction Date:: 2010 History of Any Multi-Drug Resistant Organisms: None Reported Past Surgical History: Coronary Bypass/CABG, Orthopedic Surgery Additional Past Surgical History / Comment(s): cabg 2010, cataracts. left hip replaced. surgery for breast and colon cancer. Past Anesthesia/Blood Transfusion Reactions: No Reported Reaction Additional Past Anesthesia/Blood Transfusion Reaction / Comm: no blood transfusions Past Psychological History: No Psychological Hx Reported Smoking Status: Former smoker Past Alcohol Use History: None Reported Additional Past Alcohol Use History / Comment(s): Pt states she quit smoking in 2010 before she underwent a CABG procedure Past Drug Use History: None Reported - Past Family History Father Family Medical History: Cancer Additional Family Medical History / Comment(s): lung cancer Mother Additional Family Medical History / Comment(s): heart issues Medications and Allergies Home Medications Medication Instructions Recorded Confirmed Type Latanoprost/Pf [Latanoprost 0.005% 1 drop BOTH EYES HS 06/11/20 07/15/23 History Eye Drop] metFORMIN HCL 1,000 mg PO DAILY 06/11/20 07/15/23 History Levothyroxine Sodium [Synthroid] 125 mcg PO DAILY 01/25/22 07/15/23 History Aspirin 81 mg PO DAILY 17 Days #17 tab 01/29/22 07/15/23 Rx Atorvastatin [Lipitor] 80 mg PO HS 30 Days #30 tab 01/29/22 07/15/23 Rx Clopidogrel [Plavix] 75 mg PO DAILY 30 Days #30 tab 01/29/22 07/15/23 Rx Famotidine [Pepcid] 20 mg PO HS 30 Days #30 tab 01/29/22 07/15/23 Rx Folic Acid 1 mg PO DAILY tab 01/29/22 07/15/23 Rx Insulin Detemir (Levemir) [Levemir] 16 unit SQ DAILY 07/17/22 07/15/23 History Dapagliflozin Propanediol [Farxiga] 5 mg PO HS 09/08/22 07/15/23 History Tolterodine Tartrate [Tolterodine 4 mg PO DAILY 09/08/22 07/15/23 History Tartrate ER] Acetaminophen/Diphenhydramine 1 tab PO HS 07/15/23 07/15/23 History [Tylenol PM 500-25mg] INSULIN LISPRO (HumaLOG) [humaLOG] See Protocol SQ TID-W/MEALS 07/15/23 07/15/23 History Losartan [Cozaar] 25 mg PO DAILY 07/15/23 07/15/23 History amLODIPine [Norvasc] 5 mg PO DAILY 07/15/23 07/15/23 History carvediloL [Coreg] 6.25 mg PO DAILY 07/15/23 07/15/23 History rOPINIRole HCL [Requip] 0.5 mg PO HS 07/15/23 07/15/23 History Allergies Allergy/AdvReac Type Severity Reaction Status Date / Time No Known Allergies Allergy Verified 07/15/23 16:51 Physical Examination This is a pleasant 83-year-old female in no acute distress. She is alert and oriented 3. Exam of the head and neck reveal no obvious deformity. She has slight limitation in cervical rotation but no pain. She is nontender over the cervical spinous processes. Exam of the upper extremities reveal no obvious deformity. She has fairly good shoulder, elbow, wrist and finger motion bilaterally. No areas of swelling or ecchymosis. Exam of the lumbar spine and pelvis reveal no deformities. There is mild pain with compression of the pelvis, predominantly located in the right groin. Nontender over the lumbar spinous processes. Exam of the lower extremities reveals no obvious deformity or shortening. She is able to lift each leg off the bed independently. She is able to internally and axillary rotate both hips with mild pain on the right. Full foot and ankle motion without difficulty or pain. Neurovascular status to the lower extremities is intact. Results X-rays of the pelvis and right hip reveal acute on chronic superior and inferior pubic rami fractures. There is also a chronic pubic rami fracture on the left which may have an acute component. No obvious fracture to the femoral neck or intertrochanteric region noted on x-rays. CT scan confirms the pubic rami fractures. - Labs Labs: Abnormal Lab Results - Last 24 Hours (Table) 07/15/23 07/15/23 07/15/23 Range/Units 16:40 16:40 16:40 RBC 3.13 L (3.80-5.40) m/uL Hgb 10.3 L (11.4-16.0) gm/dL Hct 29.2 L (34.0-46.0) % Carbon Dioxide 21 L (22-30) mmol/L BUN 24 H (7-17) mg/dL Creatinine 1.55 H (0.52-1.04) mg/dL Glucose 245 H (74-99) mg/dL POC Glucose (mg/dL) (70-110) mg/dL Hemoglobin A1c 10.1 H (<=6.0) % 07/15/23 07/15/23 07/15/23 Range/Units 20:29 21:41 23:02 RBC (3.80-5.40) m/uL Hgb (11.4-16.0) gm/dL Hct (34.0-46.0) % Carbon Dioxide (22-30) mmol/L BUN (7-17) mg/dL Creatinine (0.52-1.04) mg/dL Glucose (74-99) mg/dL POC Glucose (mg/dL) 283 H 319 H 308 H (70-110) mg/dL Hemoglobin A1c (<=6.0) % 07/16/23 07/16/23 Range/Units 05:39 11:13 RBC (3.80-5.40) m/uL Hgb (11.4-16.0) gm/dL Hct (34.0-46.0) % Carbon Dioxide (22-30) mmol/L BUN (7-17) mg/dL Creatinine (0.52-1.04) mg/dL Glucose (74-99) mg/dL POC Glucose (mg/dL) 344 H 310 H (70-110) mg/dL Hemoglobin A1c (<=6.0) % H & H 07/15/23 Range/Units 16:40 Hgb 10.3 L (11.4-16.0) gm/dL Hct 29.2 L (34.0-46.0) % Result Diagrams: 07/15/23 16:40 07/15/23 16:40 Assessment and Plan (1) Inability to ambulate due to hip Current Visit: Yes Status: Acute Code(s): R26.2 - DIFFICULTY IN WALKING, NOT ELSEWHERE CLASSIFIED SNOMED Code(s): 691265911 (2) Pelvic fracture Current Visit: Yes Status: Acute Code(s): S32.9XXA - FRACTURE OF UNSP PARTS OF LUMBOSACRAL SPINE AND PELVIS, INIT SNOMED Code(s): 29993248 (3) Fall Current Visit: No Status: Acute Code(s): W19.XXXA - UNSPECIFIED FALL, INITIA L ENCOUNTER SNOMED Code(s): 9054164 Plan: The clinical and x-ray findings are discussed with the patient. She may be weightbearing as tolerated with walker. She may require inpatient placement secondary to her inability to ambulate independently. We will see how she does with physical therapy and how she progresses over the next couple of days.
[2023-07-16 14:00] VITALS: BMI 24.4
--- NOTE | 2023-07-16 15:58 | P.HPIM ---
History of Present Illness H&P Date: 07/16/23 This is a very pleasant 83-year-old female who presented to the emergency department after falling and landing on her right hip. Patient reports she was attempting to get up to go to the bathroom and grabbed onto her wheelchair and instead of coming towards her it rolled away from her causing her to fall. Patient reports she uses a wheelchair and/or walker to assist with ambulation. Patient denied hitting her head or feeling dizzy or lightheaded and denies any passing out. Patient reports she follows with Dr. Stockton in the outpatient setting with a past medical history of coronary artery disease, heart failure, diabetes mellitus, GERD, hyperlipidemia, hypertension, previous myocardial i nfarction, osteoarthritis and, thyroid disorder. A shunt did have imaging of the pelvis and noted to have acute on chronic pelvic Rami fracture and was admitted with orthopedics on consult as well as PT/OT therapy evaluation for possible ECF. CT of the pelvis showed minimally displaced pubic bone fracture left greater than right and remote right superior pubic ramus fracture and bilateral inferior pubic rami fractures. Other labs reviewed and white count within normal limits and hemoglobin is 10.3, platelets are 236, sodium is 139 with a potassium of 3.7, BUN is 24 and creatinine is 1.55 and patient does have chronic kidney disease, blood sugars are elevated at 245 and hemoglobin A1c is n oted to be 10.1. Patient reports she tests her blood sugars once a day and uses sliding scale along with long-acting. Patient will need tighter glycemic control and more education regarding diabetes management. Review Of Systems: Constitutional: No fever, no chills, no night sweats. No weight change. No weakness, fatigue or lethargy. No daytime sleepiness. EENT: No headache. No blurred vision or double vision, no loss of vision. No loss of Hearing, no ringing in the ears, no dizziness. No nasal drainage or congestion. No epistaxis. No sore throat. Lungs: No shortness of breath, cough, no sputum production. No wheezing. Cardiovascular: No chest pain, no lower extremity edema. No palpitations. No paroxysmal nocturnal dyspnea. No orthopnea. No lightheadedness or dizziness. No syncopal episodes. Abdominal: No abdominal pain. No nausea, vomiting. No diarrhea. No constipati on. No bloody or tarry stools.. No loss of appetite. Genitourinary: No dysuria, increased frequency, urgency. No urinary retention. Musculoskeletal: No myalgias. No muscle weakness, reports some gait dysfunction, reports occasional falls. No back pain. No neck pain. Integumentary: No wounds, no lesions. No rash or pruritus. No unusual bruising. No change in hair or nails. Neurologic: No aphasia. No facial droop. No change in mentation. No head injury. No headache. No paralysis. No paresthesia. Psychiatric: No depression. No anxiety. No mood swings. Endocrine: No abnormal blood sugars. No weight change. No excessive sweating or thirst. No cold intolerance. PHYSICAL EXAMINATION: GENERAL: The patient is alert and oriented x3, Well developed, well nourished. Elderly-appearing HEENT: Pupils are round and equally reacting to light. EOMI. no scleral icterus. No conjunctival pallor. Normocephalic, atraumatic. No pharyngeal erythema. No thyromegaly. CARDIOVASCULAR: S1 and S2 muffled PULMONARY: diminished breath sounds bilaterally with no wheezing or rhonchi noted. ABDOMEN: soft. Nontender on exam. non-distended, normoactive bowel sounds. No palpable organomegaly. MUSCULOSKELETAL: No joint swelling or deformity. EXTREMITIES: No cyanosis, clubbing, or pedal edema. No obvious deformities noted of lower extremities with no shortening or external rotation. Strength is weak although 4/5 bilaterally and able to lift legs off the bed NEUROLOGICAL: Gross neurological examination did not reveal any focal deficits. Diffuse weakness SKIN: No rashes. Assessment: Fall, mechanical with minimally displaced pubic bone fracture left greater than right and remote right superior pubic ramus fracture and bilateral inferior pubic ramus fractures Diabetes mellitus,2, insulin-dependent uncontrolled with hyperglycemia History of coronary artery disease history of heart failure, unknown EF GERD Hyperlipidemia Hypertension History of osteoarthritis GI prophylaxis DVT prophylaxis Full code Plan: Recommend to continue with current medications and management with orthopedics consulted. Patient may weight-bear as tolerated and work with physical therapy with no restrictions noted. Patient may benefit from ECF and was evaluated by PT/OT therapy recommending ECF for continued strength and mobility. Case management following working on ECF and possibly [place] Patient was given IV hydration and will discontinue his patient is eating and drinking and does have history of heart failure. Patient is eating and drinking with no difficulties Recommend Accu-Cheks before meals and at bedtime and sliding scale and will adjust medications as much sugars are poorly controlled and hemoglobin A1c is 10.1. Patient needs further education regarding diabetes management as patient reports she tests 1 time per day and uses a sliding scale along with long-acting Recommend PT/OT therapy daily Will follow-up on repeat labs in a.m. Awaiting ECF for discharge The impression and plan of care has been dictated by Elvi Ceron, nurse practitioner as directed. Dr. Deepak MD I have performed a history and examination and MDM of this patient, discussed the same with the dictator, and agree with the dictator's assessment and plan as written ,documented as a scribe. Based on total visit time, I have performed more than 50% of the visit. Any additional findings or plans will be noted. Past Medical History Past Medical History: Coronary Artery Disease (CAD), Cancer, Heart Failure, Diabetes Mellitus, GERD/Reflux, Hyperlipidemia, Hypertension, Myocardial Infarction ([place]), Osteoarthritis (OA), Thyroid Disorder Additional Past Medical History / Comment(s): has seen retinal specialist for shots. frequent urination with some leakage. uses w/c Last Myocardial Infarction Date:: 2010 History of Any Multi-Drug Resistant Organisms: None Reported Past Surgical History: Coronary Bypass/CABG, Orthopedic Surgery Additional Past Surgical History / Comment(s): cabg 2011, cataracts. left hip replaced. surgery for breast and colon cancer. Past Anesthesia/Blood Transfusion Reactions: No Reported Reaction Additional Past Anesthesia/Blood Transfusion Reaction / Comment(s): no blood transfusions Past Psychological History: No Psychological Hx Reported Smoking Status: Former smoker Past Alcohol Use History: None Reported Additional Past Alcohol Use History / Comment(s): Pt states she quit smoking in 2010 before she underwent a CABG procedure Past Drug Use History: None Reported - Past Family History Father Family Medical History: Cancer Additional Family Medical History / Comment(s): lung cancer Mother Additional Family Medical History / Comment(s): heart issues Medications and Allergies Home Medications Medication Instructions Recorded Confirmed Type Latanoprost/Pf [Latanoprost 0.005% 1 drop BOTH EYES HS 06/11/20 07/15/23 History Eye Drop] metFORMIN HCL 1,000 mg PO DAILY 06/11/20 07/15/23 History Levothyroxine Sodium [Synthroid] 125 mcg PO DAILY 01/25/22 07/15/23 History Aspirin 81 mg PO DAILY 17 Days #17 tab 01/29/22 07/15/23 Rx Atorvastatin [Lipitor] 80 mg PO HS 30 Days #30 tab 01/29/22 07/15/23 Rx Clopidogrel [Plavix] 75 mg PO DAILY 30 Days #30 tab 01/29/22 07/15/23 Rx Famotidine [Pepcid] 20 mg PO HS 30 Days #30 tab 01/29/22 07/15/23 Rx Folic Acid 1 mg PO DAILY tab 01/29/22 07/15/23 Rx Insulin Detemir (Levemir) [Levemir] 16 unit SQ DAILY 07/17/22 07/15/23 History Dapagliflozin Propanediol [Farxiga] 5 mg PO HS 09/08/22 07/15/23 History Tolterodine Tartrate [Tolterodine 4 mg PO DAILY 09/08/22 07/15/23 History Tartrate ER] Acetaminophen/Diphenhydramine 1 tab PO HS 07/15/23 07/15/23 History [Tylenol PM 500-25mg] INSULIN LISPRO (HumaLOG) [humaLOG] See Protocol SQ TID-W/MEALS 07/15/23 07/15/23 History Losartan [Cozaar] 25 mg PO DAILY 07/15/23 07/15/23 History amLODIPine [Norvasc] 5 mg PO DAILY 07/15/23 07/15/23 History carvediloL [Coreg] 6.25 mg PO DAILY 07/15/23 07/15/23 History rOPINIRole HCL [Requip] 0.5 mg PO HS 07/15/23 07/15/23 History Allergies Allergy/AdvReac Type Severity Reaction Status Date / Time No Known Allergies Allergy Verified 07/15/23 16:51 Physical Exam Vitals: Vital Signs Temp Pulse Pulse Resp BP BP Pulse Ox 07/16/23 07:15 98.6 F 81 18 166/71 98 07/16/23 01:18 97.4 F L 81 180/67 98 07/15/23 19:55 98.2 F 69 17 165/74 95 07/15/23 18:53 98.2 F 63 16 145/87 98 07/15/23 16:01 98.1 F 62 16 167/69 97 07/15/23 12:54 97.2 F L 65 18 129/77 97 07/15/23 12:51 98 F 61 16 174/72 97 07/15/23 11:42 97.2 F L 65 18 179/77 97 Intake and Output 07/15/23 07/16/23 07/16/23 22:59 06:59 14:59 Other: # Voids 1 Weight 66.678 kg Results CBC & Chem 7: 07/15/23 16:40 07/15/23 16:40 Labs: Abnormal Lab Results - Last 24 Hours (Table) 07/15/23 07/15/23 07/15/23 Range/Units 16:40 16:40 16:40 RBC 3.13 L (3.80-5.40) m/uL Hgb 10.3 L (11.4-16.0) gm/dL Hct 29.2 L (34.0-46.0) % Carbon Dioxide 21 L (22-30) mmol/L BUN 24 H (7-17) mg/dL Creatinine 1.55 H (0.52-1.04) mg/dL Glucose 245 H (74-99) mg/dL POC Glucose (mg/dL) (70-110) mg/dL Hemoglobin A1c 10.1 H (<=6.0) % 07/15/23 07/15/23 07/15/23 Range/Units 20:29 21:41 23:02 RBC (3.80-5.40) m/uL Hgb (11.4-16.0) gm/dL Hct (34.0-46.0) % Carbon Dioxide (22-30) mmol/L BUN (7-17) mg/dL Creatinine (0.52-1.04) mg/dL Glucose (74-99) mg/dL POC Glucose (mg/dL) 283 H 319 H 308 H (70-110) mg/dL Hemoglobin A1c (<=6.0) % 07/16/23 Range/Units 05:39 RBC (3.80-5.40) m/uL Hgb (11.4-16.0) gm/dL Hct (34.0-46.0) % Carbon Dioxide (22-30) mmol/L BUN (7-17) mg/dL Creatinine (0.52-1.04) mg/dL Glucose (74-99) mg/dL POC Glucose (mg/dL) 344 H (70-110) mg/dL Hemoglobin A1c (<=6.0) % Thrombosis Risk Factor Assmnt - Choose All That Apply Any of the Below Risk Factors Present?: Yes Each Risk Factor Represents 3 Points: Age 75 years or older Thrombosis Risk Factor Assessment Total Risk Factor Score: 3 Thrombosis Risk Factor Assessment Level: Moderate Risk
[2023-07-16 16:13] LABS: Glucose,Whole Blood 234 mg/dL (70-110)
[2023-07-16 20:40] LABS: Glucose,Whole Blood 217 mg/dL (70-110)
[2023-07-16] MEDS: FAMOTIDINE 20 MG TAB PO SCH (20:55)
[2023-07-16] MEDS: ATORVASTATIN 80 MG TAB PO SCH (20:55)
[2023-07-16] MEDS: DAPAGLIFLOZIN PROPANEDIOL 5 MG TABLET PO SCH (20:56)
[2023-07-16] MEDS: LATANOPROST 0.005% OPHTH DROPS 2.5 ML BTL BOTH EYES SCH (20:56)
[2023-07-17 05:32] LABS: Glucose,Whole Blood 124 mg/dL (70-110)
[2023-07-17] MEDS: INSULIN ASPART (NovoLOG) 100 UNIT/ML VIAL SQ SCH ×4 (06:19→20:20)
[2023-07-17] MEDS: INSULIN DETEMIR (LEVEMIR) 100 UNIT/ML SYR SQ SCH (06:25)
[2023-07-17] MEDS: LEVOTHYROXINE 125 MCG TAB PO SCH (06:25)
[2023-07-17] MEDS: CLOPIDOGREL 75 MG TAB PO SCH (07:50)
[2023-07-17] MEDS: FOLIC ACID 1 MG TAB PO SCH (07:50)
[2023-07-17] MEDS: OXYBUTYNIN 10 MG TAB.ER.24 PO SCH (07:50)
[2023-07-17] MEDS: carvediloL 6.25 MG TAB PO SCH (07:50)
[2023-07-17] MEDS: ASPIRIN 81 MG PO SCH (07:50)
[2023-07-17] MEDS: amLODIPine 10 MG TAB PO SCH (07:50)
[2023-07-17] MEDS: HEPARIN SODIUM,PORCINE 5,000 UNIT/ML 1 ML VIAL SQ SCH ×2 (07:51→20:20)
[2023-07-17] MEDS: PANTOPRAZOLE 40 MG/10 ML VIAL IVP SCH ×2 (08:07→20:49)
[2023-07-17 09:59] LABS: BUN/Creat Ratio 17.71 Ratio (12.00-20.00); Blood Urea Nitrogen 30.1 mg/dL (9.0-27.0); Calcium 9.3 mg/dL (8.7-10.3); Carbon Dioxide 22.2 mmol/L (21.6-31.8); Chloride 106 mmol/L (96-109); Glucose 115 mg/dL (70-110); Potassium 3.6 mmol/L (3.5-5.5); Sodium 140 mmol/L (135-145)
--- NOTE | 2023-07-17 10:20 | P.PN ---
Subjective Progress Note Date: 07/17/23 Principal diagnosis: Pubic Rami fractures, bilateral. This is an 83-year-old female admitted through the emergency department after a fall, sustaining injury to her right hip. The patient states that she slipped out of her wheelchair onto a hardwood floor and had immediate pain in her right groin. She does have history of Pubic rami fractures in the past. On exam and x-ray in the emergency department she was found to have acute on chronic rami fractures bilaterally. We were consulted for orthopedic evaluation. 07/17/2023: The patient has no new complaints or concerns today. Vital signs are stable. She has been up with nursing staff with her walker. Objective - Vital Signs Vital signs: Vital Signs Temp 98.4 F 07/17/23 06:53 Pulse 74 07/17/23 06:53 Resp 18 07/17/23 06:53 BP 129/68 07/17/23 06:53 Pulse Ox 93 L 07/17/23 06:53 FiO2 Intake & Output 07/16/23 07/17/23 07/17/23 18:59 06:59 18:59 Output Total 300 Balance -300 Weight 66.678 kg Output: Urine 300 Other: Voiding Method External Catheter # Voids 5 - Exam This is a pleasant 83-year-old female in no acute distress. She is alert and oriented 3. Exam is essentially unchanged. She is moving well in bed. She is able to rotate both hips internally and externally without too much pain. She is able lift each leg off the bed independently. Neurovascular status to the lower extremities is intact. - Labs CBC & Chem 7: 07/15/23 16:40 07/17/23 06:09 Labs: Abnormal Lab Results - Last 24 Hours (Table) 07/16/23 07/16/23 07/16/23 Range/Units 11:13 16:11 20:28 BUN (9.0-27.0) mg/dL Creatinine (0.6-1.5) mg/dL Est GFR (CKD-EPI) (>=60) Glucose (70-110) mg/dL POC Glucose (mg/dL) 310 H 234 H 217 H (70-110) mg/dL 07/17/23 07/17/23 Range/Units 05:28 06:09 BUN 30.1 H (9.0-27.0) mg/dL Creatinine 1.7 H (0.6-1.5) mg/dL Est GFR (CKD-EPI) 29 L (>=60) Glucose 115 H (70-110) mg/dL POC Glucose (mg/dL) 124 H (70-110) mg/dL Assessment and Plan (1) Inability to ambulate due to hip Current Visit: Yes Status: Acute Code(s): R26.2 - DIFFICULTY IN WALKING, NOT ELSEWHERE CLASSIFIED SNOMED Code(s): 600092688 (2) Pelvic fracture Current Visit: Yes Status: Acute Code(s): S32.9XXA - FRACTURE OF UNSP PARTS OF LUMBOSACRAL SPINE AND PELVIS, INIT SNOMED Code(s): 96324928 (3) Fall Current Visit: No Status: Acute Code(s): W19.XXXA - UNSPECIFIED FALL, INITIAL ENCOUNTER SNOMED Code(s): 8548118 Plan: The clinical and x-ray findings are discussed with the patient. She may be weightbearing as tolerated with walker. She may require inpatient placement secondary to her inability to ambulate independently. We will see how she does with physical therapy and how she progresses over the next couple of days.
[2023-07-17 11:53] LABS: Glucose,Whole Blood 365 mg/dL (70-110)
[2023-07-17 16:54] LABS: Glucose,Whole Blood 200 mg/dL (70-110)
[2023-07-17 19:21] LABS: Glucose,Whole Blood 211 mg/dL (70-110)
[2023-07-17] MEDS: ATORVASTATIN 80 MG TAB PO SCH (20:19)
[2023-07-17] MEDS: FAMOTIDINE 20 MG TAB PO SCH (20:19)
[2023-07-17] MEDS: DAPAGLIFLOZIN PROPANEDIOL 5 MG TABLET PO SCH (20:19)
[2023-07-17] MEDS: LATANOPROST 0.005% OPHTH DROPS 2.5 ML BTL BOTH EYES SCH (20:26)
[2023-07-18 06:04] LABS: Glucose,Whole Blood 123 mg/dL (70-110)
[2023-07-18] MEDS: INSULIN ASPART (NovoLOG) 100 UNIT/ML VIAL SQ SCH ×4 (06:14→21:10)
[2023-07-18] MEDS: LEVOTHYROXINE 125 MCG TAB PO SCH (06:14)
[2023-07-18] MEDS: INSULIN DETEMIR (LEVEMIR) 100 UNIT/ML SYR SQ SCH (06:14)
[2023-07-18] MEDS: OXYBUTYNIN 10 MG TAB.ER.24 PO SCH (08:19)
[2023-07-18] MEDS: ASPIRIN 81 MG PO SCH (08:19)
[2023-07-18] MEDS: HEPARIN SODIUM,PORCINE 5,000 UNIT/ML 1 ML VIAL SQ SCH ×2 (08:19→20:59)
[2023-07-18] MEDS: PANTOPRAZOLE 40 MG/10 ML VIAL IVP SCH ×2 (08:19→21:42)
[2023-07-18] MEDS: carvediloL 6.25 MG TAB PO SCH (08:19)
[2023-07-18] MEDS: amLODIPine 10 MG TAB PO SCH (08:19)
[2023-07-18] MEDS: CLOPIDOGREL 75 MG TAB PO SCH (08:20)
[2023-07-18] MEDS: FOLIC ACID 1 MG TAB PO SCH (08:20)
[2023-07-18 09:13] LABS: Basophils # (A) 0.03 X 10*3/uL (0.00-0.10); Basophils % (A) 0.4 %; Eosinophils # (A) 0.27 X 10*3/uL (0.04-0.35); Eosinophils % (A) 3.5 %; HCT 26.5 % (37.2-46.3); HGB 9.2 g/dL (12.0-15.0); Lymphocytes # (A) 1.29 X 10*3/uL (0.90-5.00); Lymphocytes % (A) 16.6 %; MCH 32.6 pg (27.0-32.0); MCHC 34.7 g/dL (32.0-37.0); Mean Platelet Volume 9.6 FL (9.5-12.2); Monocytes # (A) 0.61 X 10*3/uL (0.20-1.00); Monocytes % (A) 7.8 %; NRBC Per 100 WBC 0 X 10*3/uL (0.00-0.01); Neutrophils # (A) 5.57 X 10*3/uL (1.80-7.70); Neutrophils % (A) 71.4 %; Platelet Count 209 X 10*3/uL (140-440); RBC 2.82 X 10*6/uL (4.10-5.20); RDW 13.6 % (11.5-14.5); WBC 7.79 X 10*3/uL (4.50-10.00)
--- NOTE | 2023-07-18 10:34 | P.PN ---
Subjective Progress Note Date: 07/18/23 Principal diagnosis: Pubic Rami fractures, bilateral. This is an 83-year-old female admitted through the emergency department after a fall, sustaining injury to her right hip. The patient states that she slipped out of her wheelchair onto a hardwood floor and had immediate pain in her right groin. She does have history of Pubic rami fractures in the past. On exam and x-ray in the emergency department she was found to have acute on chronic rami fractures bilaterally. We were consulted for orthopedic evaluation. 07/18/2023: The patient has no new complaints or concerns today. Vital signs are stable. She has been up with nursing staff with her walker. Objective - Vital Signs Vital signs: Vital Signs Temp 98.6 F 07/18/23 07:37 Pulse 85 07/18/23 07:37 Resp 14 07/18/23 07:37 BP 149/71 07/18/23 07:37 Pulse Ox 97 07/18/23 07:37 FiO2 Intake & Output 07/17/23 07/18/23 07/18/23 18:59 06:59 18:59 Output Total 200 Balance -200 Output: Urine 200 Other: Voiding Method External Catheter External Catheter # Voids 3 # Bowel Movements 0 - Exam This is a pleasant 83-year-old female in no acute distress. She is alert and oriented 3. Exam is essentially unchanged. She is moving well in bed. She is able to rotate both hips internally and externally without too much pain. She is able lift each leg off the bed independently. Neurovascular status to the lower extremities is intact. - Labs CBC & Chem 7: 07/18/23 05:29 07/17/23 06:09 Labs: Abnormal Lab Results - Last 24 Hours (Table) 07/17/23 07/17/23 07/17/23 Range/Units 11:51 16:53 19:19 RBC (4.10-5.20) X 10*6/uL Hgb (12.0-15.0) g/dL Hct (37.2-46.3) % MCH (27.0-32.0) pg POC Glucose (mg/dL) 365 H 200 H 211 H (70-110) mg/dL 07/18/23 07/18/23 Range/Units 05:29 06:03 RBC 2.82 L (4.10-5.20) X 10*6/uL Hgb 9.2 L (12.0-15.0) g/dL Hct 26.5 L (37.2-46.3) % MCH 32.6 H (27.0-32.0) pg POC Glucose (mg/dL) 123 H (70-110) mg/dL Assessment and Plan (1) Inability to ambulate due to hip Current Visit: Yes Status: Acute Code(s): R26.2 - DIFFICULTY IN WALKING, NOT ELSEWHERE CLASSIFIED SNOMED Code(s): 786260633 (2) Pelvic fracture Current Visit: Yes Status: Acute Code(s): S32.9XXA - FRACTURE OF UNSP PARTS OF LUMBOSACRAL SPINE AND PELVIS, INIT SNOMED Code(s): 24145272 (3) Fall Current Visit: No Status: Acute Code(s): W19.XXXA - UNSPECIFIED FALL, INITIAL ENCOUNTER SNOMED Code(s): 4565539 Plan: The clinical and x-ray findings are discussed with the patient. She may be w eightbearing as tolerated with walker. She may require inpatient placement secondary to her inability to ambulate independently. We will see how she does with physical therapy and how she progresses over the next couple of days.
[2023-07-18 10:48] LABS: Blood Urea Nitrogen 28.8 mg/dL (9.0-27.0); Carbon Dioxide 18.8 mmol/L (21.6-31.8); Chloride 110 mmol/L (96-109); Glucose 98 mg/dL (70-110); Potassium 3.4 mmol/L (3.5-5.5); Sodium 142 mmol/L (135-145)
[2023-07-18 10:49] LABS: Calcium 8.7 mg/dL (8.7-10.3)
[2023-07-18 11:44] LABS: Glucose,Whole Blood 140 mg/dL (70-110)
[2023-07-18 16:21] LABS: Glucose,Whole Blood 172 mg/dL (70-110)
[2023-07-18] MEDS: SODIUM CHLORIDE 0.45% 1,000 ML IV SCH (16:32)
[2023-07-18] MEDS: ATORVASTATIN 80 MG TAB PO SCH (20:58)
[2023-07-18] MEDS: FAMOTIDINE 20 MG TAB PO SCH (20:58)
[2023-07-18] MEDS: LATANOPROST 0.005% OPHTH DROPS 2.5 ML BTL BOTH EYES SCH (20:59)
[2023-07-18] MEDS: DAPAGLIFLOZIN PROPANEDIOL 5 MG TABLET PO SCH (20:59)
[2023-07-18 21:06] LABS: Glucose,Whole Blood 177 mg/dL (70-110)
--- NOTE | 2023-07-18 21:30 | P.PN ---
Subjective Progress Note Date: 07/17/23 This is a very pleasant 83-year-old female who presented to the emergency department after falling and landing on her right hip. Patient reports she was attempting to get up to go to the bathroom and grabbed onto her wheelchair and instead of coming towards her it rolled away from her causing her to fall. Patient reports she uses a wheelchair and/or walker to assist with ambulation. Patient denied hitting her head or feeling dizzy or lightheaded and denies any passing out. Patient reports she follows with Dr. Stockton in the outpatient setting with a past medical history of coronary artery disease, heart failure, diabetes mellitus, GERD, hyperlipidemia, hypertension, previous myocardial infarction, osteoarthritis and, thyroid disorder. A shunt did have imaging of the pelvis and noted to have acute on chronic pelvic Rami fracture and was admitted with orthopedics on consult as well as PT/OT therapy evaluation for possible ECF. CT of the pelvis showed minimally displaced pubic bone fracture left greater than right and remote right superior pubic ramus fracture and bilateral inferior pubic rami fractures. Other labs reviewed and white count within normal limits and hemoglobin is 10.3, platelets are 236, sodium is 139 with a potassium of 3.7, BUN is 24 and creatinine is 1.55 and patient does have chronic kidney disease, blood sugars are elevated at 245 and hemoglobin A1c is noted to be 10.1. Patient reports she tests her blood sugars once a day and uses sliding scale along with long-acting. Patient will need tighter glycemic control and more education regarding diabetes management. 07/17/2023 Patient is able to sit on the side of the bed. No complaints of chest pain or shortness of breath. Pain is better. No complaints of nausea or vomiting. Able to tolerate oral diet. Has been walking with support. Orthopedic surgery recommends weightbearing as tolerated with walker. Laboratory data showed sodium 140 potassium 3.6 chloride 106 bicarb is 22.2 BUN 30.1 and creatinine 1.7 blood sugar 115 Current medications reviewed. PHYSICAL EXAMINATION: GENERAL: The patient is alert and oriented x3, Well developed, well nourished. Elderly-appearing HEENT: Pupils are round and equally reacting to light. EOMI. no scleral icterus. No conjunctival pallor. Normocephalic, atraumatic. No pharyngeal erythema. No thyromegaly. CARDIOVASCULAR: S1 and S2 muffled PULMONARY: diminished breath sounds bilaterally with no wheezing or rhonchi noted. ABDOMEN: soft. Nontender on exam. non-distended, normoactive bowel sounds. No palpable organomegaly. MUSCULOSKELETAL: No joint swelling or deformity. EXTREMITIES: No cyanosis, clubbing, or pedal edema. No obvious deformities noted of lower extremities with no shortening or external rotation. Strength is weak although 4/5 bilaterally and able to lift legs off the bed NEUROLOGICAL: Gross neurological examination did not reveal any focal deficits. Diffuse weakness SKIN: No rashes. Assessment: Fall, mechanical with minimally displaced pubic bone fracture left greater than right and remote right superior pubic ramus fracture and bilateral inferior pubic ramus fractures Diabetes mellitus,2, insulin-dependent uncontrolled with hyperglycemia History of coronary artery disease history of heart failure, unknown EF GERD Hyperlipidemia Hypertension History of osteoarthritis GI prophylaxis DVT prophylaxis Full code Plan: Recommend to continue with current medications and management with orthopedics consulted. Patient may weight-bear as tolerated and work with physical therapy with no restrictions noted. Patient may benefit from ECF and was evaluated by PT/OT therapy recommending ECF for continued strength and mobility. Case management following working on ECF and possibly [place] Patient was given IV hydration and will discontinue his patient is eating and drinking and does have history of heart failure. Patient is eating and drinking with no difficulties Recommend Accu-Cheks before meals and at bedtime and sliding scale and will adjust medications as much sugars are poorly controlled and hemoglobin A1c is 10.1. Patient needs further education regarding diabetes management as patient reports she tests 1 time per day and uses a sliding scale along with long-acting Recommend PT/OT therapy daily Will follow-up on repeat labs in a.m. Awaiting ECF for discharge Objective - Vital Signs Vital signs: Vital Signs Temp 98.5 F 07/17/23 19:39 Pulse 78 07/17/23 19:39 Resp 17 07/17/23 19:39 BP 145/63 07/17/23 19:39 Pulse Ox 96 07/17/23 19:39 FiO2 Intake & Output 07/17/23 07/17/23 07/18/23 06:59 18:59 06:59 Output Total 300 200 Balance -300 -200 Output: Urine 300 200 Other: Voiding Method External Catheter External Catheter External Catheter # Bowel Movements 0 - Labs CBC & Chem 7: 07/18/23 05:29 07/18/23 05:29 Labs: Abnormal Lab Results - Last 24 Hours (Table) 07/17/23 07/17/23 07/17/23 Range/Units 05:28 06:09 11:51 BUN 30.1 H (9.0-27.0) mg/dL Creatinine 1.7 H (0.6-1.5) mg/dL Est GFR (CKD-EPI) 29 L (>=60) Glucose 115 H (70-110) mg/dL POC Glucose (mg/dL) 124 H 365 H (70-110) mg/dL 07/17/23 07/17/23 Range/Units 16:53 19:19 BUN (9.0-27.0) mg/dL Creatinine (0.6-1.5) mg/dL Est GFR (CKD-EPI) (>=60) Glucose (70-110) mg/dL POC Glucose (mg/dL) 200 H 211 H (70-110) mg/dL
[2023-07-19] MEDS: SODIUM CHLORIDE 0.45% 1,000 ML IV SCH ×2 (05:14→17:30)
[2023-07-19 06:09] LABS: Glucose,Whole Blood 200 mg/dL (70-110)
[2023-07-19] MEDS: INSULIN ASPART (NovoLOG) 100 UNIT/ML VIAL SQ SCH ×4 (06:10→20:45)
[2023-07-19] MEDS: INSULIN DETEMIR (LEVEMIR) 100 UNIT/ML SYR SQ SCH (06:10)
[2023-07-19] MEDS: LEVOTHYROXINE 125 MCG TAB PO SCH (06:10)
[2023-07-19] MEDS: carvediloL 6.25 MG TAB PO SCH (08:38)
[2023-07-19] MEDS: ASPIRIN 81 MG PO SCH (08:38)
[2023-07-19] MEDS: CLOPIDOGREL 75 MG TAB PO SCH (08:38)
[2023-07-19] MEDS: OXYBUTYNIN 10 MG TAB.ER.24 PO SCH (08:38)
[2023-07-19] MEDS: HEPARIN SODIUM,PORCINE 5,000 UNIT/ML 1 ML VIAL SQ SCH ×2 (08:38→20:45)
[2023-07-19] MEDS: FOLIC ACID 1 MG TAB PO SCH (08:38)
[2023-07-19] MEDS: amLODIPine 10 MG TAB PO SCH (08:38)
[2023-07-19 10:32] LABS: Basophils # (A) 0.03 X 10*3/uL (0.00-0.10); Basophils % (A) 0.5 %; Eosinophils # (A) 0.19 X 10*3/uL (0.04-0.35); Eosinophils % (A) 3.1 %; HCT 25.9 % (37.2-46.3); HGB 8.8 g/dL (12.0-15.0); Lymphocytes # (A) 1.19 X 10*3/uL (0.90-5.00); Lymphocytes % (A) 19.3 %; MCH 31.9 pg (27.0-32.0); MCV 93.8 FL (80.0-97.0); Mean Platelet Volume 9.8 FL (9.5-12.2); Monocytes # (A) 0.47 X 10*3/uL (0.20-1.00); Monocytes % (A) 7.6 %; NRBC Per 100 WBC 0 X 10*3/uL (0.00-0.01); Neutrophils # (A) 4.26 X 10*3/uL (1.80-7.70); Neutrophils % (A) 69.3 %; Platelet Count 210 X 10*3/uL (140-440); RBC 2.76 X 10*6/uL (4.10-5.20); RDW 13.8 % (11.5-14.5); WBC 6.15 X 10*3/uL (4.50-10.00)
[2023-07-19] MEDS: PANTOPRAZOLE 40 MG TABLET PO SCH (11:00)
[2023-07-19 11:10] LABS: BUN/Creat Ratio 14.85 Ratio (12.00-20.00); Blood Urea Nitrogen 29.7 mg/dL (9.0-27.0); Glucose 184 mg/dL (70-110)
[2023-07-19 11:11] LABS: Calcium 8.4 mg/dL (8.7-10.3); Carbon Dioxide 19.4 mmol/L (21.6-31.8); Chloride 109 mmol/L (96-109); Potassium 3.4 mmol/L (3.5-5.5); Sodium 139 mmol/L (135-145)
[2023-07-19 11:36] LABS: Glucose,Whole Blood 217 mg/dL (70-110)
[2023-07-19] MEDS ORDERED: POTASSIUM CHLORIDE ER 20 MEQ TAB.ER PO STA (13:41)
[2023-07-19 16:37] LABS: Glucose,Whole Blood 165 mg/dL (70-110)
[2023-07-19 20:31] LABS: Glucose,Whole Blood 179 mg/dL (70-110)
[2023-07-19] MEDS: FAMOTIDINE 20 MG TAB PO SCH (20:45)
[2023-07-19] MEDS: ATORVASTATIN 80 MG TAB PO SCH (20:45)
[2023-07-19] MEDS: DAPAGLIFLOZIN PROPANEDIOL 5 MG TABLET PO SCH (20:45)
[2023-07-19] MEDS: LATANOPROST 0.005% OPHTH DROPS 2.5 ML BTL BOTH EYES SCH (20:46)
[2023-07-20 05:04] LABS: Glucose,Whole Blood 117 mg/dL (70-110)
[2023-07-20] MEDS: SODIUM CHLORIDE 0.45% 1,000 ML IV SCH (06:45)
[2023-07-20] MEDS: INSULIN ASPART (NovoLOG) 100 UNIT/ML VIAL SQ SCH ×3 (06:47→16:48)
[2023-07-20] MEDS: LEVOTHYROXINE 125 MCG TAB PO SCH (06:48)
[2023-07-20] MEDS: PANTOPRAZOLE 40 MG TABLET PO SCH (06:48)
[2023-07-20] MEDS: INSULIN DETEMIR (LEVEMIR) 100 UNIT/ML SYR SQ SCH (06:48)
[2023-07-20] MEDS: CLOPIDOGREL 75 MG TAB PO SCH (08:06)
[2023-07-20] MEDS: ASPIRIN 81 MG PO SCH (08:06)
[2023-07-20] MEDS: HEPARIN SODIUM,PORCINE 5,000 UNIT/ML 1 ML VIAL SQ SCH (08:06)
[2023-07-20] MEDS: OXYBUTYNIN 10 MG TAB.ER.24 PO SCH (08:06)
[2023-07-20] MEDS: FOLIC ACID 1 MG TAB PO SCH (08:06)
[2023-07-20] MEDS: carvediloL 6.25 MG TAB PO SCH (08:06)
[2023-07-20] MEDS: amLODIPine 10 MG TAB PO SCH (08:06)
[2023-07-20 08:46] LABS: Basophils # (A) 0.02 X 10*3/uL (0.00-0.10); Basophils % (A) 0.3 %; Eosinophils # (A) 0.22 X 10*3/uL (0.04-0.35); Eosinophils % (A) 3.5 %; HCT 26.7 % (37.2-46.3); Lymphocytes # (A) 1.57 X 10*3/uL (0.90-5.00); Lymphocytes % (A) 25.1 %; MCH 32.4 pg (27.0-32.0); MCHC 33.7 g/dL (32.0-37.0); Mean Platelet Volume 9.9 FL (9.5-12.2); Monocytes # (A) 0.55 X 10*3/uL (0.20-1.00); Monocytes % (A) 8.8 %; NRBC Per 100 WBC 0 X 10*3/uL (0.00-0.01); Neutrophils # (A) 3.88 X 10*3/uL (1.80-7.70); Neutrophils % (A) 62.1 %; Platelet Count 229 X 10*3/uL (140-440); RBC 2.78 X 10*6/uL (4.10-5.20); RDW 13.6 % (11.5-14.5); WBC 6.25 X 10*3/uL (4.50-10.00)
[2023-07-20 11:26] LABS: Glucose,Whole Blood 141 mg/dL (70-110)
[2023-07-20 13:07] VITALS: BP 129/62; PULSE 70; RESP 16; TEMP 99
[2023-07-20 15:00] LABS: African American GFR (CKD) 25 (>60 ml/min/1.73 sqM); Anion Gap 10 mmol/L; Blood Urea Nitrogen 32 mg/dL (7-17); Calcium 8.6 mg/dL (8.4-10.2); Carbon Dioxide 20 mmol/L (22-30); Chloride 110 mmol/L (98-107); Glucose 195 mg/dL (74-99); Non-African American GFR(CKD) 22 (>60 ml/min/1.73 sqM); Potassium 4.5 mmol/L (3.5-5.1); Sodium 140 mmol/L (137-145)
[2023-07-20 16:17] LABS: Glucose,Whole Blood 132 mg/dL (70-110)
--- NOTE | 2023-07-21 10:02 | P.DS ---
Providers Date of admission: 07/15/23 15:48 Expected date of discharge: 07/20/23 Attending physician: Rayo Falcon MD Consults: 07/15/23 15:59 Consult Physician Routine Consulting Provider: Raiza Lomeli Consult Reason/Comments: pelvic fx Do you want consulting provider notified?: Yes Primary care physician: Kyara Stockton Hospital Course: Final diagnosis Fall, mechanical with minimally displaced pubic bone fracture left greater than right and remote right superior pubic ramus fracture and bilateral inferior pubic ramus fractures Diabetes mellitus,2, insulin-dependent uncontrolled with hyperglycemia History of coronary artery disease history of heart failure, unknown EF GERD Hyperlipidemia Hypertension History of osteoarthritis GI prophylaxis DVT prophylaxis Full code Discharge disposition Patient is being discharged in a stable condition with guarded prognosis to [facility]. Patient will follow-up with Dr. Stockton in the outpatient setting upon discharge. Patient is to follow-up with orthopedics outpatient as scheduled. Total time taken is greater than 35 minutes. Hospital course This is a 83-year-old female who was recently admitted with fall found to have a minimally displaced pubic bone fracture left greater than right and remote right superior pubic ramus fracture being evaluated by orthopedics with no plans for surgical intervention recommending rehab. Patient was seen and evaluated by PT/OT therapy recommending physical therapy and initially patient was refusing to go to rehab although patient is significantly weak and now agreeable. Maninder boyer has evaluated and accepted the patient and patient will be going to [facility] today for continued strength and mobility. Please refer to orthopedics notes for further HPI. Patient is a diabetic and recommend continue on consistent carb and Accu-Cheks before meals and at bedtime along with sliding scale for now. Patient reports she does use long-acting insulin along with sliding scale although only tests herself once daily so unsure how she is providing appropriate coverage. Patient needs diabetic education and close outpatient follow-up. Patient did have some repeat labs drawn as kidney functions were mildly elevated and pending at this time and will follow-up with repeat labs in 2-3 days of BMP in the outpatient setting. Currently no reports of chest pain, shortness of breath, or palpitations. Patient is afebrile. No reports of nausea or vomiting and patient is tolerating diet. Patient will be going to [facility] today. Physical exam: Gen: This is a 83-year-old female who is awake, alert and oriented 2-3, well- developed, well-nourished, elderly-appearing HEENT: Head is atraumatic, normocephalic. Pupils equal, round. Sclerae is anicteric. NECK: Supple. No JVD. No lymphadenopathy. No thyromegaly. LUNGS: Clear to auscultation. No wheezes or rhonchi. No intercostal retractions. HEART: Regular rate and rhythm. No murmur. ABDOMEN: Soft. Bowel sounds are present. No masses. No tenderness. EXTREMITIES: No pedal edema. No calf tenderness. NEUROLOGICAL: Patient is awake, alert and oriented x3. Cranial nerves 2 through 12 are grossly intact. Diffusely weak Please refer to medication reconciliation sheet for a list of medications. The impression and plan of care has been dictated by Elvi Ceron, Nurse Practitioner as directed. Dr. Viridiana MD I have performed a history and examination and MDM of this patient, discussed the same with the dictator, and agree with the dictator's assessment and plan as written ,documented as a scribe. Based on total visit time, I have performed more than 50% of the visit. Plan - Discharge Summary New Discharge Prescriptions: No Action metFORMIN HCL 1,000 mg PO DAILY Latanoprost/Pf [Latanoprost 0.005% Eye Drop] 1 drop BOTH EYES HS Levothyroxine Sodium [Synthroid] 125 mcg PO DAILY Atorvastatin [Lipitor] 80 mg PO HS 30 Days #30 tab Famotidine [Pepcid] 20 mg PO HS 30 Days #30 tab Dapagliflozin Propanediol [Farxiga] 5 mg PO HS Acetaminophen/Diphenhydramine [Tylenol PM 500-25mg] 1 tab PO HS carvediloL [Coreg] 6.25 mg PO DAILY INSULIN LISPRO (HumaLOG) [humaLOG] See Protocol SQ TID-W/MEALS Aspirin 81 mg PO DAILY 17 Days #17 tab Folic Acid 1 mg PO DAILY tab Clopidogrel [Plavix] 75 mg PO DAILY 30 Days #30 tab Insulin Detemir (Levemir) [Levemir] 16 unit SQ DAILY Tolterodine Tartrate [Tolterodine Tartrate ER] 4 mg PO DAILY amLODIPine [Norvasc] 5 mg PO DAILY Losartan [Cozaar] 25 mg PO DAILY rOPINIRole HCL [Requip] 0.5 mg PO HS Discharge Medication List Latanoprost/Pf [Latanoprost 0.005% Eye Drop] 1 drop BOTH EYES HS 06/11/20 [History] metFORMIN HCL 1,000 mg PO DAILY 06/11/20 [History] Levothyroxine Sodium [Synthroid] 125 mcg PO DAILY 01/25/22 [History] Aspirin 81 mg PO DAILY 17 Days #17 tab 01/29/22 [Rx] Atorvastatin [Lipitor] 80 mg PO HS 30 Days #30 tab 01/29/22 [Rx] Clopidogrel [Plavix] 75 mg PO DAILY 30 Days #30 tab 01/29/22 [Rx] Famotidine [Pepcid] 20 mg PO HS 30 Days #30 tab 01/29/22 [Rx] Folic Acid 1 mg PO DAILY tab 01/29/22 [Rx] Insulin Detemir (Levemir) [Levemir] 16 unit SQ DAILY 07/17/22 [History] Dapagliflozin Propanediol [Farxiga] 5 mg PO HS 09/08/22 [History] Tolterodine Tartrate [Tolterodine Tartrate ER] 4 mg PO DAILY 09/08/22 [History] Acetaminophen/Diphenhydramine [Tylenol PM 500-25mg] 1 tab PO HS 07/15/23 [History] INSULIN LISPRO (HumaLOG) [humaLOG] See Protocol SQ TID-W/MEALS 07/15/23 [History] Losartan [Cozaar] 25 mg PO DAILY 07/15/23 [History] amLODIPine [Norvasc] 5 mg PO DAILY 07/15/23 [History] carvediloL [Coreg] 6.25 mg PO DAILY 07/15/23 [History] rOPINIRole HCL [Requip] 0.5 mg PO HS 07/15/23 [History] Follow up Appointment(s)/Referral(s): Kyara Stockton MD [Primary Care Provider] - 1-2 days
== END 2023-07-20 18:50 | DRG 536 ==
LOC: EC 11:08 → 4SSUR 15:48
PROVIDERS: ADMIT Internal Medicine; ATTEND Internal Medicine
DX: S32.591A Other specified fracture of right pubis, initial encounter for closed fracture (principal); I13.0 Hypertensive heart and chronic kidney disease with heart failure and stage 1 through stage 4 chronic kidney disease, or unspecified chronic kidney disease; S32.511A Fracture of superior rim of right pubis, initial encounter for closed fracture; E11.22 Type 2 diabetes mellitus with diabetic chronic kidney disease; E78.5 Hyperlipidemia, unspecified; I25.10 Atherosclerotic heart disease of native coronary artery without angina pectoris; I25.2 Old myocardial infarction; I50.9 Heart failure, unspecified; K21.9 Gastro-esophageal reflux disease without esophagitis; W05.0XXA Fall from non-moving wheelchair, initial encounter; Z79.02 Long term (current) use of antithrombotics/antiplatelets; Z79.4 Long term (current) use of insulin; Z79.82 Long term (current) use of aspirin; Z79.84 Long term (current) use of oral hypoglycemic drugs; Z79.899 Other long term (current) drug therapy; Z79.890 Hormone replacement therapy; Z85.038 Personal history of other malignant neoplasm of large intestine; Z98.42 Cataract extraction status, left eye; Z98.41 Cataract extraction status, right eye; Z95.1 Presence of aortocoronary bypass graft; Z96.642 Presence of left artificial hip joint; N18.9 Chronic kidney disease, unspecified
CPT/HCPCS: 72100; 72192; 73502; 80048; 83036; 85025; 93005; 96360; 96361; 99285

== ENCOUNTER → 2023-08-23 | Outpatient (CLI) | payer MEDICARE | END | disposition home or self-care (01) | LOC: LABPRL 12:19 | PROVIDERS: ATTEND Nurse Practitioner Acute Care | DX: Z53.9 Procedure and treatment not carried out, unspecified reason (principal) ==

== ENCOUNTER 2023-10-23 22:43 | Emergency (ER) | payer OTHER, MEDICARE ==
[2023-10-23 23:13] VITALS: RESP 16
--- NOTE | 2023-10-23 23:54 | US ---
EXAMINATION TYPE: US venous doppler duplex LE LT DATE OF EXAM: 10/23/2023 11:38 PM COMPARISON: NONE CLINICAL INDICATION: Female, 83 years old with history of leg swelling; Left leg swelling x a couple days. No hx of DVT. Patient on Plavix. SIDE PERFORMED: Left TECHNIQUE: The lower extremity deep venous system is examined utilizing real time linear array sonog lyla with graded compression, doppler sonography and color-flow sonography. VESSELS IMAGED: Common Femoral Vein Deep Femoral Vein Greater Saphenous Vein * Femoral Vein Popliteal Vein Small Saphenous Vein * Proximal Calf Veins (* superficial vessels) Left Leg: No evidence of DVT. *Left calf edema visualized. IMPRESSION: No ultrasound evidence for acute DVT in the left lower extremity.
[2023-10-24 00:24] LABS: Basophils % (A) 1 %; Eosinophils # (A) 0.2 k/uL (0-0.7); Eosinophils % (A) 3 %; HCT 29.3 % (34.0-46.0); HGB 9.6 gm/dL (11.4-16.0); Lymphocytes # (A) 1.2 k/uL (1.0-4.8); Lymphocytes % (A) 25 %; MCHC 32.7 g/dL (31.0-37.0); MCV 97.8 fL (80.0-100.0); Mean Platelet Volume 7.3; Monocytes # (A) 0.2 k/uL (0-1.0); Monocytes % (A) 5 %; Neutrophils # (A) 3.2 k/uL (1.3-7.7); Neutrophils % (A) 65 %; Platelet Count 210 k/uL (150-450); RDW 14.1 % (11.5-15.5)
[2023-10-24 00:29] LABS: Partial Thromboplastin Time 23.4 sec (22.0-30.0); Prothrombin Time 10.7 sec (10.0-12.5)
[2023-10-24 00:33] LABS: ALT 39 U/L (4-34); AST 28 U/L (14-36); African American GFR (CKD) 33 (>60 ml/min/1.73 sqM); Albumin 3.9 g/dL (3.5-5.0); Alkaline Phosphatase 50 U/L (38-126); Anion Gap 8 mmol/L; Blood Urea Nitrogen 30 mg/dL (7-17); Calcium 9.4 mg/dL (8.4-10.2); Carbon Dioxide 21 mmol/L (22-30); Chloride 110 mmol/L (98-107); Glucose 404 mg/dL (74-99); Non-African American GFR(CKD) 29 (>60 ml/min/1.73 sqM); Potassium 4.4 mmol/L (3.5-5.1); Sodium 139 mmol/L (137-145); Total Bilirubin 0.5 mg/dL (0.2-1.3); Total Protein 6.7 g/dL (6.3-8.2)
[2023-10-24 00:42] LABS: NT-Pro-B-Type Natriuretic Pept 2180 pg/mL
--- NOTE | 2023-10-24 01:10 | XR ---
EXAMINATION TYPE: XR chest 1V DATE OF EXAM: October 24, 2023 COMPARISON: Prior chest x-ray September 15, 2022 HISTORY: Rule out CHF. Lower extremity edema. TECHNIQUE: Single frontal view of the chest is obtained. FINDINGS: Overlying sternal wires and mediastinal clips are redemonstrated. Cardiac silhouette size is more prominent and mildly enlarged currently. There is mild central vascular congestion on current study. No pleural effusion or pneumothorax is seen. Old posterior lateral right mid rib fractures ar e seen better on prior study. Surgical clips redemonstrated in the overlying right breast. IMPRESSION: Mild cardiomegaly and mild central vascular congestion. Findings confirm suspected CHF exacerbation.
[2023-10-24] MEDS: cloNIDine HCL 0.1 MG TAB PO STA (01:30)
[2023-10-24 01:38] VITALS: PULSE 74; TEMP 97.1
--- NOTE | 2023-10-24 02:14 | ED ---
General Adult HPI - General Chief complaint: Recheck/Abnormal Lab/Rx Stated complaint: Leg swelling Time Seen by Provider: 10/23/23 23:01 Source: patient, EMS Mode of arrival: EMS Limitations: no limitations - History of Present Illness Initial comments: 83-year-old female presenting with chief complaint of left lower leg swelling. This has been ongoing for the last 2 days. She also does have some swelling to the right lower leg but the left lower leg is larger. She is having no pain in the legs. No chest pain or difficulty breathing. No recent surgery or long travel. No history of blood clots. Patient takes Plavix. No fever, chills, cough, congestion, sore throat. No weakness or dizziness. - Related Data Home Medications Medication Instructions Recorded Confirmed Latanoprost/Pf [Latanoprost 0.005% 1 drop BOTH EYES HS 06/11/20 08/30/23 Eye Drop] Levothyroxine Sodium [Synthroid] 125 mcg PO DAILY 01/25/22 08/30/23 Dapagliflozin Propanediol [Farxiga] 5 mg PO HS 09/08/22 08/30/23 Tolterodine Tartrate [Tolterodine 4 mg PO DAILY 09/08/22 08/30/23 Tartrate ER] carvediloL [Coreg] 6.25 mg PO DAILY 07/15/23 08/30/23 rOPINIRole HCL [Requip] 0.5 mg PO HS 07/15/23 08/30/23 Previous Rx's Medication Instructions Recorded Aspirin 81 mg PO DAILY 17 Days #17 tab 01/29/22 Atorvastatin [Lipitor] 80 mg PO HS 30 Days #30 tab 01/29/22 Clopidogrel [Plavix] 75 mg PO DAILY 30 Days #30 tab 01/29/22 Famotidine [Pepcid] 20 mg PO HS 30 Days #30 tab 01/29/22 Folic Acid 1 mg PO DAILY tab 01/29/22 Acetaminophen Tab [Tylenol] 650 mg PO Q6HR PRN tab 07/20/23 Heparin Sodium,Porcine (1 ml) 5,000 unit SQ Q12HR each 07/20/23 [Heparin Sodium] INSULIN ASPART (NovoLOG) [NovoLOG 0 unit SQ ACHS each 07/20/23 (formulary)] Insulin Detemir (Levemir) [Levemir] 25 unit SQ DAILY@0700 each 07/20/23 Pantoprazole [Protonix] 40 mg PO AC-BRKFST tab 07/20/23 amLODIPine [Norvasc] 10 mg PO DAILY tab 07/20/23 Furosemide [Lasix] 40 mg PO DAILY #5 tablet 10/24/23 Allergies Allergy/AdvReac Type Severity Reaction Status Date / Time No Known Allergies Allergy Verified 08/30/23 13:17 Review of Systems ROS Statement: Those systems with pertinent positive or pertinent negative responses have been documented in the HPI. ROS Other: All systems not noted in ROS Statement are negative. Past Medical History Past Medical History: Coronary Artery Disease (CAD), Cancer, Heart Failure, Diabetes Mellitus, GERD/Reflux, Hyperlipidemia, Hypertension, Myocardial Infarction (OK), Osteoarthritis (OA), Thyroid Disorder Additional Past Medical History / Comment(s): has seen retinal specialist for shots. frequent urination with some leakage. uses w/c Last Myocardial Infarction Date:: 2010 History of Any Multi-Drug Resistant Organisms: ESBL Date of last positivie culture/infection: 07/21/23 MDRO Source:: Urine Past Surgical History: Coronary Bypass/CABG, Orthopedic Surgery Additional Past Surgical History / Comment(s): cabg 2010, cataracts. left hip replaced. surgery for breast and colon cancer. Past Anesthesia/Blood Transfusion Reactions: No Reported Reaction Additional Past Anesthesia/Blood Transfusion Reaction / Comment(s): no blood transfusions Past Psychological History: No Psychological Hx Reported Smoking Status: Former smoker - Past Family History Father Family Medical History: Cancer Additional Family Medical History / Comment(s): lung cancer Mother Additional Family Medical History / Comment(s): heart issues General Exam Limitations: no limitations General appearance: alert, in no apparent distress Head exam: Present: atraumatic, normocephalic Eye exam: Present: normal appearance, EOMI Neck exam: Present: normal inspection. Absent: meningismus Respiratory exam: Present: normal lung sounds bilaterally. Absent: respiratory distress, wheezes, rales, rhonchi, stridor Cardiovascular Exam: Present: regular rate, normal rhythm, normal heart sounds. Absent: systolic murmur, diastolic murmur, rubs, gallop, clicks Extremities exam: Present: pedal edema Neurological exam: Present: alert, oriented X3 Psychiatric exam: Present: normal affect, normal mood Skin exam: Present: warm, dry Course Vital Signs 10/23/23 10/24/23 10/24/23 22:50 01:27 01:50 Temperature 97.4 F L 97.1 F L Pulse Rate 70 74 Respiratory 16 16 Rate Blood Pressure 183/71 184/84 168/80 O2 Sat by Pulse 100 99 Oximetry Medical Decision Making - Medical Decision Making Was pt. sent in by a medical professional or institution (, [facility], [facility], urgent care, hospital, or jail...) When possible be specific @ -No Did you speak to anyone other than the patient for history (EMS, parent, family, police, friend...)? What history was obtained from this source @ -No Did you review nursing and triage notes (agree or disagree)? Why? @ -I reviewed and agree with nursing and triage notes Were old charts reviewed (outside hosp., previous admission, EMS record, old EKG, old radiological studies, urgent care reports/EKG's, jail records)? Report findings @ -No old charts were reviewed Differential Diagnosis (chest pain, altered mental status, abdominal pain women, abdominal pain men, vaginal bleeding, weakness, fever, dyspnea, syncope, headache, dizziness, GI bleed, back pain, seizure, CVA, palpatations, mental health, musculoskeletal)? @ -Differential includes DVT, CHF, renal disease, hepatic disease, venous insufficiency, this is not an all-inclusive list EKG interpreted by me (3pts min.). @ -As above X-rays interpreted by me (1pt min.). @ -Mild cardiomegaly with mild central vascular congestion. Findings confirm suspected CHF exacerbation CT interpreted by me (1pt min.). @ -None done U/S interpreted by me (1pt. min.). @ -No ultrasound evidence for acute DVT in the left lower extremity What testing was considered but not performed or refused? (CT, X-rays, U/S, labs)? Why? @ -None What meds were considered but not given or refused? Why? @ -None Did you discuss the management of the patient with other professionals (professionals i.e. [facility]EL Mishra, [facility], lab, RT, psych nurse, social media campaign manager, air surveillance operator, teacher, correctional officer captain, piano case and bench assembler)? Give summary @ -No Was smoking cessation discussed for >3mins.? @ -No Was critical care preformed (if so, how long)? @ -No Were there social determinants of health that impacted care today? How? (Homelessness, low income, unemployed, alcoholism, drug addiction, transportation, low edu. Level, literacy, decrease access to med. care, senior care, rehab)? 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 DNR status @ -No What co-morbidities impacted this encounter? (DM, HTN, Smoking, COPD, CAD, Cancer, CVA, ARF, Chemo, Hep., AIDS, mental health diagnosis, sleep apnea, morbid obesity)? @ -Heart failure, diabetes, hypertension Was patient admitted / discharged? Hospital course, mention meds given and rou te, prescriptions, significant lab abnormalities, going to OR and other pertinent info. @ -83-year-old female presenting with chief complaint of lower extremity swelling. The left lower leg seems to be slightly more swollen than the right. History and physical exam are conducted. Ultrasound is negative for DVT. BUN and creatinine of 30 and 1.62 respectively, consistent with the patient's base line. BNP 2180. Chest x-ray shows evidence of CHF, however she is having no shortness of breath or chest pain. I informed the patient of these results. I informed her that given her results today she should be admitted to the hospital for CHF exacerbation. 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 I told the patient that her was welcome to stay with her while she was in the hospital. The patient continued to refuse. The risks were clearly explained and reviewed with the patient. She is of sound mind and body and able to make her own decisions. She is provided with a short course of Lasix and is instructed to follow-up with her PCP. She is to report back to the ER with any new or worsening symptoms. Patient conveyed verbal understanding and agreed to the plan. All questions were answered. I discussed this case with my attending Dr. Ambrocio Undiagnosed new problem with uncertain prognosis? @ -No Drug Therapy requiring intensive monitoring for toxicity (Heparin, Nitro, Insulin, Cardizem)? @ -No Were any procedures done? @ -No Diagnosis/symptom? @ -Congestive heart failure Acute, or Chronic, or Acute on Chronic? @ -Acute on chronic Uncomplicated (without systemic symptoms) or Complicated (systemic symptoms)? @ -Uncomplicated Side effects of treatment? @ -No Exacerbation, Progression, or Severe Exacerbation? @ -Observation Poses a threat to life or bodily function? How? (Chest pain, [place], [place], pneumonia, PE, COPD, DKA, ARF, appy, cholecystitis, CVA, Diverticulitis, Homicidal, Suicidal, threat to staff... and all critical care pts) @ -There is some threat posed, patient was advised that she should be admitted to the hospital for treatment but refused - Lab Data Result diagrams: 10/23/23 23:44 10/23/23 23:44 Lab Results 10/23/23 10/23/23 10/23/23 Range/Units 23:44 23:44 23:44 WBC 5.0 (3.8-10.6) k/uL RBC 3.00 L (3.80-5.40) m/uL Hgb 9.6 L (11.4-16.0) gm/dL Hct 29.3 L (34.0-46.0) % MCV 97.8 (80.0-100.0) fL MCH 32.0 (25.0-35.0) pg MCHC 32.7 (31.0-37.0) g/dL RDW 14.1 (11.5-15.5) % Plt Count 210 (150-450) k/uL MPV 7.3 Neutrophils % 65 % Lymphocytes % 25 % Monocytes % 5 % Eosinophils % 3 % Basophils % 1 % Neutrophils # 3.2 (1.3-7.7) k/uL Lymphocytes # 1.2 (1.0-4.8) k/uL Monocytes # 0.2 (0-1.0) k/uL Eosinophils # 0.2 (0-0.7) k/uL Basophils # 0.0 (0-0.2) k/uL PT 10.7 (10.0-12.5) sec INR 1.0 (<1.2) APTT 23.4 (22.0-30.0) sec Sodium 139 (137-145) mmol/L Potassium 4.4 (3.5-5.1) mmol/L Chloride 110 H (98-107) mmol/L Carbon Dioxide 21 L (22-30) mmol/L Anion Gap 8 mmol/L BUN 30 H (7-17) mg/dL Creatinine 1.62 H (0.52-1.04) mg/dL Est GFR (CKD-EPI)AfAm 33 (>60 ml/min/1.73 sqM) Est GFR (CKD-EPI)NonAf 29 (>60 ml/min/1.73 sqM) Glucose 404 H (74-99) mg/dL Calcium 9.4 (8.4-10.2) mg/dL Total Bilirubin 0.5 (0.2-1.3) mg/dL AST 28 (14-36) U/L ALT 39 H (4-34) U/L Alkaline Phosphatase 50 (38-126) U/L NT-Pro-B Natriuret Pep 2180 pg/mL Total Protein 6.7 (6.3-8.2) g/dL Albumin 3.9 (3.5-5.0) g/dL Disposition Clinical Impression: CHF (congestive heart failure) Disposition: HOME SELF-CARE Condition: Fair Instructions (If sedation given, give patient instructions): Heart Failure (ER) Additional Instructions: Follow-up with PCP. Call on Wednesday to set up your follow-up appointment. Report back to ER with any new or worsening symptoms. Take your medication as prescribed. Prescriptions: Furosemide [Lasix] 40 mg PO DAILY #5 tablet Is patient prescribed a controlled substance at d/c from ED?: No Referrals: Kyara tSockton MD [Primary Care Provider] - 1-2 days Time of Disposition: 02:14
[2023-10-24 02:20] VITALS: BP 168/80
== END 2023-10-24 03:26 | disposition home or self-care (01) ==
LOC: EC 22:43
DX: I11.0 Hypertensive heart disease with heart failure (principal); I50.9 Heart failure, unspecified; Z95.1 Presence of aortocoronary bypass graft; Z79.899 Other long term (current) drug therapy; Z87.891 Personal history of nicotine dependence
CPT/HCPCS: 36415; 71045; 80053; 83880; 85025; 85610; 85730; 99284

== ENCOUNTER → 2023-12-09 | Outpatient (CLI) | payer OTHER, MEDICARE ==
[2023-12-09 12:21] LABS: Appearance,Urine Cloudy (Clear); Bacteria,Urine Many /hpf; Bilirubin,Urine Negative (Negative); Blood,Urine Negative (Negative); Color,Urine Colorless; Glucose,Urine (UA) 4+ (Negative); Ketones,Urine Negative (Negative); Leukocyte Esterase,Urine Large (Negative); Mucus,Urine Occasional /hpf; Nitrite,Urine Negative (Negative); Protein,Urine 1+ (Negative); RBC,Urine 1 /hpf (0-5); Specific Gravity,Urine 1.015 (1.001-1.035); Squamous Epithelial Cell,Urine 1 /hpf (0-4); Urobilinogen,Urine <2.0 mg/dL (<2.0); WBC,Urine 130 /hpf (0-5)
[2023-12-09 12:24] LABS: Creatinine,Urine Random 60.1 mg/dL; Protein/Creatinine Ratio,Urine 1.498
[2023-12-09 14:39] LABS: MCH 33.1 pg (27.0-32.0); MCHC 33.3 g/dL (32.0-37.0); MCV 99.3 FL (80.0-97.0); Mean Platelet Volume 9.1 FL (9.5-12.2); NRBC Per 100 WBC 0 X 10*3/uL (0.00-0.01); Platelet Count 271 X 10*3/uL (140-440); RBC 2.72 X 10*6/uL (4.10-5.20); RDW 13.9 % (11.5-14.5); WBC 5.84 X 10*3/uL (4.50-10.00)
[2023-12-09 15:21] LABS: BUN/Creat Ratio 16.31 Ratio (12.00-20.00); Blood Urea Nitrogen 26.1 mg/dL (9.0-27.0); Calcium 9.4 mg/dL (8.7-10.3); Chloride 108 mmol/L (96-109); Glucose 161 mg/dL (70-110); Potassium 4.1 mmol/L (3.5-5.5); Sodium 142 mmol/L (135-145)
[2023-12-09 21:17] LABS: Urine Creatinine 62.5 mg/dL (28.0-217.0)
== END | disposition home or self-care (01) ==
LOC: LABWHC1 10:05
PROVIDERS: ATTEND Internal Medicine
DX: N18.32 Chronic kidney disease, stage 3b (principal)
CPT/HCPCS: 36415; 80048; 81001; 82043; 82570; 84156; 85027; 87086

== ENCOUNTER 2024-05-08 12:02 | Emergency (ER) | payer MEDICARE ==
--- NOTE | 2024-05-08 13:07 | ED ---
General Adult HPI - General Chief complaint: Fall Stated complaint: Fall Time Seen by Provider: 05/08/24 12:05 Source: patient, EMS Mode of arrival: EMS Limitations: no limitations, altered mental status - History of Present Illness Initial comments: Patient is a pleasant 83-year-old female presenting today for mechanical trip and fall. When took that she is off her bed and then tripped on the sheets and felt like her left leg went out from under her. Landed face forward hitting her face on the wood floor and onto her right shoulder. She denies pain in her chest, abdomen left upper extremity right lower extremity but does endorse pain for last 2 weeks in her left hip. No LOC. Unsure of her last Tdap. Is not on blood thinners but does take a baby aspirin daily. - Related Data Home Medications Medication Instructions Recorded Confirmed Latanoprost/Pf [Latanoprost 0.005% 1 drop BOTH EYES HS 06/11/20 05/08/24 Eye Drop] Levothyroxine Sodium [Synthroid] 125 mcg PO DAILY 01/25/22 05/08/24 Dapagliflozin Propanediol [Farxiga] 5 mg PO HS 09/08/22 05/08/24 Tolterodine Tartrate [Tolterodine 4 mg PO DAILY 09/08/22 05/08/24 Tartrate ER] carvediloL [Coreg] 6.25 mg PO DAILY 07/15/23 05/08/24 rOPINIRole HCL [Requip] 0.5 mg PO HS 07/15/23 05/08/24 Clotrimazole/Betameth Cream 1 applic TOPICAL BID PRN 05/08/24 05/08/24 [Lotrisone] Furosemide [Lasix] 20 mg PO DAILY 05/08/24 05/08/24 INSULIN ASPART (NovoLOG) [NovoLOG See Protocol SQ ACHS PRN 05/08/24 05/08/24 (formulary)] Insulin Detemir (Levemir) [Levemir] 20 unit SQ DAILY 05/08/24 05/08/24 Losartan [Cozaar] 50 mg PO DAILY 05/08/24 05/08/24 Pantoprazole [Protonix] 40 mg PO DAILY 05/08/24 05/08/24 metFORMIN HCL [Glucophage] 500 mg PO BID 05/08/24 05/08/24 Previous Rx's Medication Instructions Recorded Famotidine [Pepcid] 20 mg PO HS 30 Days #30 tab 01/29/22 Folic Acid 1 mg PO DAILY tab 01/29/22 amLODIPine [Norvasc] 10 mg PO DAILY tab 07/20/23 Allergies Allergy/AdvReac Type Severity Reaction Status Date / Time No Known Allergies Allergy Verified 05/08/24 13:11 Review of Systems ROS Statement: Those systems with pertinent positive or pertinent negative responses have been documented in the HPI. ROS Other: All systems not noted in ROS Statement are negative. Constitutional: Denies: fever Eyes: Denies: vision change Respiratory: Denies: dyspnea Cardiovascular: Denies: chest pain Gastrointestinal: Denies: abdominal pain, nausea Musculoskeletal: Reports: joint swelling, arthralgia. Denies: back pain Neurological: Denies: headache, weakness, numbness, paresthesias, confusion Past Medical History Past Medical History: Coronary Artery Disease (CAD), Cancer, Heart Failure, Diabetes Mellitus, GERD/Reflux, Hyperlipidemia, Hypertension, Myocardial Infarction ([place]), Osteoarthritis (OA), Thyroid Disorder Additional Past Medical History / Comment(s): has seen retinal specialist for shots. frequent urination with some leakage. uses w/c Last Myocardial Infarction Date:: 2010 History of Any Multi-Drug Resistant Organisms: ESBL Date of last positivie culture/infection: 07/21/23 MDRO Source:: Urine Past Surgical History: Coronary Bypass/CABG, Orthopedic Surgery Additional Past Surgical History / Comment(s): cabg 2010, cataracts. left hip replaced. surgery for breast and colon cancer. Past Anesthesia/Blood Transfusion Reactions: No Reported Reaction Additional Past Anesthesia/Blood Transfusion Reaction / Comment(s): no blood transfusions Past Psychological History: No Psychological Hx Reported Smoking Status: Former smoker - Past Family History Father Family Medical History: Cancer Additional Family Medical History / Comment(s): lung cancer Mother Additional Family Medical History / Comment(s): heart issues General Exam - General Exam Comments Initial Comments: PE: CONSTITUTIONAL: No apparent distress, well appearing SKIN: Warm, dry, no jaundice, hives or petechiae. Small superficial laceration to the bridge of nose, bleeding controlled, abrasion to right knee EYES: Pupils are equally round, extraocular movements intact without nystagmus, clear conjunctiva, non-icteric sclera HENT: Normocephalic, hematoma to the right forehead across right elbow, hematoma across nasal bridge, scant blood in nasopharynx, no septal hematoma or laceration present, oropharynx is clear without exudates, no midline spinal tenderness to palpation, pupils are equal round reactive to light, moist mucus membranes, oropharynx clear without exudates NECK: , C-collar in place, no midline spinal tenderness to palpation PULMONARY: Clear to auscultation without wheezes, rhonchi, or rales, normal e xcursion, no accessory muscle use and no stridor, no chest wall tenderness to palpation CARDIOVASCULAR: Regular rate, rhythm, normal S1 and S2. No appreciated murmurs, rubs or gallops. Strong radial pulses with intact distal perfusion. No lower extremity edema GASTROINTESTINAL: Soft, active bowel sounds throughout, non-tender, non- distended, no palpable masses, no rebound or guarding. No hepatosplenomegaly MUSCULOSKELETAL: No midline cervical spine or spinal tenderness otherwise, no signs of trauma to the back, bruising swelling and slight deformity of the proximal right upper extremity, pain when patient attempts to abduct, referred pain when patient moves her wrist or elbow however no bony tenderness over the distal aspect of the humerus, elbow, forearm wrist or hands, 2+ radial pulse pa lpated, sensation intact throughout right upper extremity including deltoid region, bruise and skin tear to right knee, no deformity to the right lower extremity patient able to flex and extend the right lower extremity at the hip, knee and ankle through full range of motion, no tenderness palpation of the right hip, no tenderness patient of left hip, pelvis stable, patient able to flex left hip and left knee however only able to extend at the knee to approximately 120 degrees and then left lower extremity spasms and returns to flexion at the knee and hip, , TTP proximal left femur, no deformity, no tenderness palpation of the distal femur, knee, distal LLE, ankle or foot, extremities have 2+ dorsalis pedis and radial pulses respectively and are neurovascularly intact extremities, LUE has no gross deformity, no edema, redness, or swelling. No calf swelling NEUROLOGIC:_a/o x 3, GCS 15, normal mentation and speech. Moves all extremities x 4 without motor or sensory deficit with exceptions as noted in MSK exam PSYCHIATRIC:_normal mood and affect, thought process is clear and linear Limitations: no limitations, altered mental status Course Vital Signs 05/08/24 05/08/24 05/08/24 12:45 12:54 15:23 Temperature 98.2 F 98.2 F Pulse Rate 63 65 Respiratory 20 18 Rate Blood Pressure 224/80 215/75 189/84 O2 Sat by Pulse 98 99 Oximetry 05/08/24 05/08/24 15:45 15:48 Temperature 98.0 F Pulse Rate 67 64 Respiratory 18 18 Rate Blood Pressure 190/85 164/78 O2 Sat by Pulse 97 99 Oximetry EKG Findings - EKG Comments: EKG Findings:: Ectopic atrial rhythm, rate 69 bpm, CT interval 159 ms, QRS duration 89 ms, QT/QTc 406/425 ms, borderline right axis deviation, T wave inversions in leads I and aVL, there is [address] elevation V1 2 mm in V2 with Q waves present and an incomplete right bundle branch block, compared to EKG performed on 07/15/23, inversions noted in leads I and aVL at that point as well though are more deeply inverted today Medical Decision Making - Medical Decision Making Was pt. sent in by a medical professional or institution (, PA, GOLF COURSE MANAGER, urgent care, hospital, or long-term...) When possible be specific @ -No Did you speak to anyone other than the patient for history (EMS, parent, family, police, friend...)? What history was obtained from this source @ -No Did you review nursing and triage notes (agree or disagree)? Why? @ -I reviewed and agree with nursing and triage notes Were old charts reviewed (outside hosp., previous admission, EMS record, old EKG, old radiological studies, urgent care reports/EKG's, long-term records)? Report findings @Reviewed old charts, reviewed ultrasound performed - 10/23/2023 when patient presented for left lower extremity edema, there is no evidence of DVT Differential Diagnosis (chest pain, altered mental status, abdominal pain women, abdominal pain men, vaginal bleeding, weakness, fever, dyspnea, syncope, headache, dizziness, GI bleed, back pain, seizure, CVA, palpatations, mental health, musculoskeletal)? Differential diagnose runs broad over top considerations include nasal bone fracture, skull fracture, traumatic intracranial injury, cervical spine fracture or ligamentous injury, right shoulder dislocation, humerus fracture, left hip fracture, left hip dislocation, ligamentous injury, arthritis, sprain, contusion, muscle spasm, this is not inclusive list EKG interpreted by me (3pts min.). @ -As above X-rays interpreted by me (1pt min.). @ Commiinuted humerus fracture XR shoulder, no obvious fracture/ dislocation on pelvis or femur XR CT interpreted by me (1pt min.). @Nasal fracture noted on CT max face, hemtoma on right forehead, no obvious hemorrhage, no skull fracture, no cervical spine fracture or malalignment U/S interpreted by me (1pt. min.). @ -None done What testing was considered but not performed or refused? (CT, X-rays, U/S, labs)? Why? @ -None What meds were considered but not given or refused? Why? @ -None Did you discuss the management of the patient with other professionals (professionals i.e. , PA, GOLF COURSE MANAGER, lab, RT, psych nurse, social worker delinquency prevention, market stall vendor, teacher, chief innovation officer, manager case)? Give summary @ -No Was smoking cessation discussed for >3mins.? @ -No Was critical care preformed (if so, how long)? @ -Yes, 45 minutes Were there social determinants of health that impacted care today? How? (Homelessness, low income, unemployed, alcoholism, drug addiction, transportation, low edu. Level, literacy, decrease access to med. care, fci, rehab)? @ -No Was there de-escalation of care discussed even if they declined (Discuss DNR or withdrawal of care, Hospice)? @ -No What co-morbidities impacted this encounter? (DM, HTN, Smoking, COPD, CAD, Cancer, CVA, ARF, Chemo, Hep., AIDS, mental health diagnosis, sleep apnea, morbid obesity)? @ HTN Was patient admitted / discharged? Hospital course, mention meds given and route, prescriptions, significant lab abnormalities, going to OR and other pertinent info. @ Transfer to [facility] Is a pleasant 83-year-old female history of CAD, hypertension, thyroid disorder presenting today for mechanical trip and fall, injury to the nose, forehead, right shoulder, with addition left hip pain has been ongoing for 2 weeks from prior fall and contributed to patient's fall today. Patient seen and assessed on arrival. She is awake and alert. AO x 4. Small laceration to the bridge of patient's nose, hematoma to the bridge of the nose and upper right forehead, no septal hematomas or lacerations, scant amount of blood in the nasopharynx, oropharynx clear, cervical c-collar is in place, no midline spinal tenderness, deformity of the right shoulder tenderness patient of the right shoulder, no pain with elevation of the elbow or distal right upper extremity, extremity is neurovascularly intact, small patient to the right knee, patient's left lower extremity is held in slight flexion and internal rotation when asked to straighten the left lower extremity patient states that it feels like it "fling's back up" when she tries to straighten it as if there is "a rubber band" . She does have an x-ray scheduled outpatient with orthopedic surgeon tomorrow however as his potentially contributed to patient's fall will obtain x-ray here today. Plan for CT brain, C-spine, CT max face, x-ray chest and pelvis, x-ray left hip and femur, x-ray right shoulder right humerus, pain control and Tdap update. Patient agreeable plan of care. Patient noted to be hypertensive with systolic blood pressure 215. She had not taken any of her antihypertensives today denies any chest pain, shortness of breath, lower extremity swelling. Neurologic deficits. Ordered patient's home Coreg and losartan as patient is asymptomatic for signs of hypertensive emergency at this point. Will IV medications should she become symptomatic or if we cannot contol BP with oral antihypertensivevs. Additionally ordered EKG, troponin CBC and CMP to assess for signs of end- organ damage. EKG interpretation as above. There does appear to be some ST elevation in V1 and V2 and T wave inversion in leads I and aVL that was previously present, she denies any chest pain at this point. T waves are inverted in leads I and aVL and for EKG performed on 07/15/2023 though not as deep inverted as today. Brain significant for inferior bilateral frontal lobe parenchymal contusions, mildly displaced anterior nasal spine fracture with nondisplaced acute right anterior nasal bone fracture no cervical spine fracture. Patient will need to be transferred to facility with neurosurgery due to frontal lobe parenchyma contusions. Discussed with Dr. Lao, trauma service at [facility]. He kindly accepts patient for transfer. Updated patient and her daughter to findings thus far and plan for transfer. They are agreeable with plan. Last blood pressure 189 systolic. Patient is about to receive further pain control fentanyl, if this does not improve patient's blood pressure to systolic less than 180 will give additional 10 mg of labetalol. X-ray right shoulder significant for humeral head fracture comminuted. Patient transferred in stable condition. Undiagnosed new problem with uncertain prognosis? @ -No Drug Therapy requiring intensive monitoring for toxicity (Heparin, Nitro, Insulin, Cardizem)? @ -No Were any procedures done? @ -No Diagnosis/symptom? @ -Fall, right comminuted humerus fracture, intraparenchymal contusions, hypertensive urgency Acute, or Chronic, or Acute on Chronic? @ -Acute Uncomplicated (without systemic symptoms) or Complicated (systemic symptoms)? @Complicated Side effects of treatment? @ -No Exacerbation, Progression, or Severe Exacerbation? @ -No Poses a threat to life or bodily function? How? (Chest pain, [place], [place], pneumonia, PE, COPD, DKA, ARF, appy, cholecystitis, CVA, Diverticulitis, Homicidal, Suicidal, threat to staff... and all critical care pts) @Yes - Lab Data Result diagrams: 05/08/24 14:30 05/08/24 14:30 Lab Results 05/08/24 05/08/24 05/08/24 Range/Units 14:30 14:30 14:30 WBC 10.8 H (3.8-10.6) k/uL RBC 3.16 L (3.80-5.40) m/uL Hgb 10.2 L (11.4-16.0) gm/dL Hct 31.3 L (34.0-46.0) % MCV 99.1 (80.0-100.0) fL MCH 32.4 (25.0-35.0) pg MCHC 32.8 (31.0-37.0) g/dL RDW 14.0 (11.5-15.5) % Plt Count 269 (150-450) k/uL MPV 7.1 Neutrophils % 86 % Lymphocytes % 9 % Monocytes % 3 % Eosinophils % 2 % Basophils % 0 % Neutrophils # 9.2 H (1.3-7.7) k/uL Lymphocytes # 1.0 (1.0-4.8) k/uL Monocytes # 0.3 (0-1.0) k/uL Eosinophils # 0.2 (0-0.7) k/uL Basophils # 0.0 (0-0.2) k/uL Macrocytosis Slight PT 10.9 (10.0-12.5) sec INR 1.0 (<1.2) APTT 23.0 (22.0-30.0) sec Sodium 139 (137-145) mmol/L Potassium 4.4 (3.5-5.1) mmol/L Chloride 112 H (98-107) mmol/L Carbon Dioxide 15 L (22-30) mmol/L Anion Gap 12 mmol/L BUN 36 H (7-17) mg/dL Creatinine 1.55 H (0.52-1.04) mg/dL Est GFR (CKD-EPI)AfAm 35 (>60 ml/min/1.73 sqM) Est GFR (CKD-EPI)NonAf 30 (>60 ml/min/1.73 sqM) Glucose 214 H (74-99) mg/dL Calcium 9.4 (8.4-10.2) mg/dL Total Bilirubin 0.7 (0.2-1.3) mg/dL AST 30 (14-36) U/L ALT 23 (4-34) U/L Alkaline Phosphatase 44 (38-126) U/L Troponin I (0.000-0.034) ng/mL NT-Pro-B Natriuret Pep 1330 pg/mL Total Protein 7.2 (6.3-8.2) g/dL Albumin 4.4 (3.5-5.0) g/dL 05/08/24 Range/Units 14:30 WBC (3.8-10.6) k/uL RBC (3.80-5.40) m/uL Hgb (11.4-16.0) gm/dL Hct (34.0-46.0) % MCV (80.0-100.0) fL MCH (25.0-35.0) pg MCHC (31.0-37.0) g/dL RDW (11.5-15.5) % Plt Count (150-450) k/uL MPV Neutrophils % % Lymphocytes % % Monocytes % % Eosinophils % % Basophils % % Neutrophils # (1.3-7.7) k/uL Lymphocytes # (1.0-4.8) k/uL Monocytes # (0-1.0) k/uL Eosinophils # (0-0.7) k/uL Basophils # (0-0.2) k/uL Macrocytosis PT (10.0-12.5) sec INR (<1.2) APTT (22.0-30.0) sec Sodium (137-145) mmol/L Potassium (3.5-5.1) mmol/L Chloride (98-107) mmol/L Carbon Dioxide (22-30) mmol/L Anion Gap mmol/L BUN (7-17) mg/dL Creatinine (0.52-1.04) mg/dL Est GFR (CKD-EPI)AfAm (>60 ml/min/1.73 sqM) Est GFR (CKD-EPI)NonAf (>60 ml/min/1.73 sqM) Glucose (74-99) mg/dL Calcium (8.4-10.2) mg/dL Total Bilirubin (0.2-1.3) mg/dL AST (14-36) U/L ALT (4-34) U/L Alkaline Phosphatase (38-126) U/L Troponin I <0.012 (0.000-0.034) ng/mL NT-Pro-B Natriuret Pep pg/mL Total Protein (6.3-8.2) g/dL Albumin (3.5-5.0) g/dL Disposition Clinical Impression: Fall, Comminuted right humeral fracture, Intraparenchymal hematoma of brain due to trauma, Hypertensive urgency Disposition: OTHER INSTITUTION NOT DEFINED Condition: Stable Referrals: Kyara Stockton MD [Primary Care Provider] - 1-2 days - Out of Hospital Transfer - Req. Specs Out of Hospital Transfer - Requested Specifics: Other Emergency Center
[2024-05-08] MEDS: ACETAMINOPHEN TAB 500 MG TAB PO STA (13:09)
[2024-05-08] MEDS: DIPH,PERTUS(ACELL)TETVAC-LF 0.5 ML VIAL IM ONE (13:10)
--- NOTE | 2024-05-08 13:49 | CT ---
EXAMINATION TYPE: CT brain cspine wo con, CT facial bones wo con CT DLP: 923.9 mGycm, Automated exposure control for dose reduction was used. DATE OF EXAM: 05/08/2024 1:34 PM COMPARISON: MR brain 01/26/2022, CT brain 01/25/2022 CLINICAL INDICATION:Female, 83 years old with history of fall forward, face trauma; fall forward onto wood floor, forehead, nose injury. TECHNIQUE: Brain: Multiple axial CT images of the brain were obtained without IV contrast. Cspine: Axial CT images from the skull base to the inferior aspect of T2 we obtained without intraven ous contrast. Coronal and sagittal reformatted images were also reviewed. Facial bones; axial CT images of the facial bones were obtained without contrast and soft tissue and bone windows. Coronal and sagittal reformatted images were also reviewed. FINDINGS: Brain: Extra-axial spaces: No abnormal extra-axial fluid collections. Ventricular system: Dilatation in proportion to cerebral atrophy. Cerebral parenchyma: Cerebral atrophy. Inferior bilateral frontal lobe parenchymal contusions (series 201, image 29) The mehta-white junction is well differentiated. Confluent hypoattenuating areas are s een within the periventricular and subcortical white matter. Cerebellum: Unremarkable. Mass effect: No evidence of midline shift. Intracranial vasculature: Atherosclerotic calcifications of the intracranial vessels. Soft tissues: Normal. Calvarium: No depressed skull fracture. Paranasal sinuses and mastoid air cells: Clear. Visualized orbits: Orbital contents are intact. Cervical spine: Fracture: None. Osseous structures: Multilevel degenerative disc disease changes with endplate spurring and disc oste ophyte complex's. Vertebral alignment: Degenerative grade 1 anterolisthesis of C3 on C4. Spinal canal/Neural Foramina: Disc osteophyte complexes at C5-C6 and C6-C7 with at least mild spinal canal stenosis. Facet joint uncovertebral joint arthropathy scattered throughout the cervical spine w ith varying degrees of neural foraminal stenosis. Neck soft tissues: Prevertebral soft tissues are within normal limits. Other: The airway is patent. The lung apices are clear. Bilateral carotid bulb calcifications. Facial Bones: Mildly displaced anterior nasal spine fracture with approximately 1.7 mm of superior displacement. Ac em nondisplaced fracture of the right anterior nasal bone. Right forehead soft tissue hematoma measu ring 9 mm in thickness. Mild nasal septal deviation of the left. Soft tissue swelling of the nose. Th e orbital contents are unremarkable. Bilateral scleral calcifications. The temporal-mandibular joints appear symmetric. The visualized portion of the paranasal sinuses appear clear. IMPRESSION: 1. Acute bilateral inferior frontal lobe parenchymal contusions. 2. Acute mildly displaced anterior nasal spine fracture with nondisplaced acute right anterior nasal bone fracture. Surrounded soft tissue swelling with mild right forehead soft tissue hematoma. 3. No evidence of cervical spine fracture. 4. Mild multilevel degenerative disc disease. 5. Degenerative grade 1 anterolisthesis of C3 on C4. 6. Nonspecific white matter changes likely related to chronic small vessel ischemic disease. [facility], , 05/08/2024 1:46 PM
[2024-05-08] MEDS: carvediloL 6.25 MG TAB PO STA (14:02)
[2024-05-08] MEDS: LOSARTAN 50 MG TAB PO STA (14:02)
[2024-05-08 14:48] LABS: Basophils % (A) 0 %; Eosinophils # (A) 0.2 k/uL (0-0.7); Eosinophils % (A) 2 %; HCT 31.3 % (34.0-46.0); HGB 10.2 gm/dL (11.4-16.0); Lymphocytes % (A) 9 %; MCH 32.4 pg (25.0-35.0); MCHC 32.8 g/dL (31.0-37.0); MCV 99.1 fL (80.0-100.0); Macrocytosis Slight; Mean Platelet Volume 7.1; Monocytes # (A) 0.3 k/uL (0-1.0); Monocytes % (A) 3 %; Neutrophils # (A) 9.2 k/uL (1.3-7.7); Neutrophils % (A) 86 %; Platelet Count 269 k/uL (150-450); RBC 3.16 m/uL (3.80-5.40); WBC 10.8 k/uL (3.8-10.6)
[2024-05-08 14:58] LABS: Prothrombin Time 10.9 sec (10.0-12.5)
[2024-05-08 15:02] LABS: ALT 23 U/L (4-34); AST 30 U/L (14-36); African American GFR (CKD) 35 (>60 ml/min/1.73 sqM); Albumin 4.4 g/dL (3.5-5.0); Alkaline Phosphatase 44 U/L (38-126); Anion Gap 12 mmol/L; Blood Urea Nitrogen 36 mg/dL (7-17); Calcium 9.4 mg/dL (8.4-10.2); Carbon Dioxide 15 mmol/L (22-30); Chloride 112 mmol/L (98-107); Glucose 214 mg/dL (74-99); Non-African American GFR(CKD) 30 (>60 ml/min/1.73 sqM); Potassium 4.4 mmol/L (3.5-5.1); Sodium 139 mmol/L (137-145); Total Bilirubin 0.7 mg/dL (0.2-1.3); Total Protein 7.2 g/dL (6.3-8.2)
[2024-05-08 15:11] LABS: NT-Pro-B-Type Natriuretic Pept 1330 pg/mL
[2024-05-08 15:25] VITALS: RESP 18
[2024-05-08] MEDS: fentaNYL (PF) 50 MCG/ML 2 ML AMP IVP PRN (15:27)
[2024-05-08] MEDS: LABETALOL SYRINGE 5 MG/ML (4 ML SYR) IVP STA (15:45)
--- NOTE | 2024-05-08 15:53 | XR ---
EXAMINATION TYPE: XR chest 2V, XR femur 2 views LT, XR Hip 2 views LT and AP Pelvis, XR shoulder complete 3 views RT, XR humerus 2 views RT DATE OF EXAM: 05/08/2024 COMPARISON: 10/24/23 and pelvis 07/15/2023 HISTORY: 83-year-old female fall forward and pain FINDINGS: Chest: Median sternotomy wire sutures post-CABG clips. Heart normal size. Mild hyperinflation. Mild intersti tial prominence. No consolidation or pleural effusion. Right shoulder and humerus: Comminuted fracture right humeral head. There is surgical neck component displaced by approximately 1 cm medially. Comminuted greater tuberosity component without significant displacement. The glenoid h umeral joint appears intact. Mild to moderate degenerative changes AC joint. Vascular calcifications. Pelvis, left hip, and left femur: Chronic fracture deformities right superior and inferior pubic rami as well as the left inferior pubi c ramus and pubic body. Vascular calcifications are present. SI joints appear symmetric and intact. O steopenia. Left hip total arthroplasty. No periprosthetic lucency or periprosthetic fracture is seen. Vascular c alcifications. No acute fracture of the more mid to distal femur is seen. No knee joint effusion. IMPRESSION: 1. Chest: Mild interstitial prominence may be chronic. Correlate to exclude mild pulmonary vascular c ongestion. 2. Right shoulder and humerus: Comminuted fracture right humeral head. This appears to be a two-part fracture involving the surgical neck with 1 cm of displacement. Nondisplaced fractures involve the gr eater tuberosity. 3. Pelvis, left hip, and left femur: Old healed fracture deformities of the bilateral pubic rami and left pubic body. The left hip total arthroplasty appears well seated and intact. Osteopenia without d isplaced fracture seen. [facility], , 05/08/2024 3:51 PM
[2024-05-08 15:55] VITALS: BP 164/78; PULSE 64; TEMP 98
== END 2024-05-08 15:58 | disposition other institution (70) ==
LOC: EC 12:02
CPT/HCPCS: 36415; 70450; 70486; 71046; 72125; 73502; 80053; 83880; 84484; 85025; 85610; 85730; 90715; 93005; 96372; 96374; 96375; 99291

== ENCOUNTER 2024-06-18 11:55 | Emergency (ER) | payer MEDICARE ==
[2024-06-18 12:00] VITALS: RESP 18; TEMP 97.9
[2024-06-18 12:10] LABS: Glucose,Whole Blood 205 mg/dL (70-110)
--- NOTE | 2024-06-18 12:19 | ED ---
General Adult HPI - General Chief complaint: GI Bleed Stated complaint: GI bleed Time Seen by Provider: 06/18/24 12:00 Source: patient, EMS, RN notes reviewed, old records reviewed Mode of arrival: EMS Limitations: no limitations - History of Present Illness Initial comments: This is an 84-year-old female who presents to the emergency department stating she has had diarrhea for the last couple of days. Patient states she was given some medicine for the diarrhea but it has not stopped. Staff at the facility was a little concerned because her diarrhea was very black and they wanted to come in because they were concerned about a GI bleed. Patient denies any abdominal pain. Patient Nuys lightheadedness or dizziness. Patient denies being tired. Patient states her 2 days ago and she been a little bit depressed because she wakes up thinking he still around. Patient denies any shortness of breath or difficulty breathing. Patient has any chest pain. patient denies being on any blood thinners - Related Data Home Medications Medication Instructions Recorded Confirmed Latanoprost/Pf [Latanoprost 0.005% 1 drop BOTH EYES HS 06/11/20 05/08/24 Eye Drop] Levothyroxine Sodium [Synthroid] 125 mcg PO DAILY 01/25/22 05/08/24 Dapagliflozin Propanediol [Farxiga] 5 mg PO HS 09/08/22 05/08/24 Tolterodine Tartrate [Tolterodine 4 mg PO DAILY 09/08/22 05/08/24 Tartrate ER] carvediloL [Coreg] 6.25 mg PO DAILY 07/15/23 05/08/24 rOPINIRole HCL [Requip] 0.5 mg PO HS 07/15/23 05/08/24 Clotrimazole/Betameth Cream 1 applic TOPICAL BID PRN 05/08/24 05/08/24 [Lotrisone] Furosemide [Lasix] 20 mg PO DAILY 05/08/24 05/08/24 INSULIN ASPART (NovoLOG) [NovoLOG See Protocol SQ ACHS PRN 05/08/24 05/08/24 (formulary)] Insulin Detemir (Levemir) [Levemir] 20 unit SQ DAILY 05/08/24 05/08/24 Losartan [Cozaar] 50 mg PO DAILY 05/08/24 05/08/24 Pantoprazole [Protonix] 40 mg PO DAILY 05/08/24 05/08/24 metFORMIN HCL [Glucophage] 500 mg PO BID 05/08/24 05/08/24 Previous Rx's Medication Instructions Recorded Famotidine [Pepcid] 20 mg PO HS 30 Days #30 tab 01/29/22 Folic Acid 1 mg PO DAILY tab 01/29/22 amLODIPine [Norvasc] 10 mg PO DAILY tab 07/20/23 Allergies Allergy/AdvReac Type Severity Reaction Status Date / Time No Known Allergies Allergy Verified 06/18/24 11:59 Review of Systems ROS Statement: Those systems with pertinent positive or pertinent negative responses have been documented in the HPI. ROS Other: All systems not noted in ROS Statement are negative. Past Medical History Past Medical History: Coronary Artery Disease (CAD), Cancer, Heart Failure, Diabetes Mellitus, GERD/Reflux, Hyperlipidemia, Hypertension, Myocardial Infarction ([place]), Osteoarthritis (OA), Thyroid Disorder Additional Past Medical History / Comment(s): has seen retinal specialist for shots. frequent urination with some leakage. uses w/c Last Myocardial Infarction Date:: 2010 History of Any Multi-Drug Resistant Organisms: ESBL Date of last positivie culture/infection: 07/21/23 MDRO Source:: Urine Past Surgical History: Coronary Bypass/CABG, Orthopedic Surgery Additional Past Surgical History / Comment(s): cabg 2010, cataracts. left hip replaced. surgery for breast and colon cancer. Past Anesthesia/Blood Transfusion Reactions: No Reported Reaction Additional Past Anesthesia/Blood Transfusion Reaction / Comment(s): no blood transfusions Past Psychological History: No Psychological Hx Reported Smoking Status: Former smoker - Past Family History Father Family Medical History: Cancer Additional Family Medical History / Comment(s): lung cancer Mother Additional Family Medical History / Comment(s): heart issues General Exam - General Exam Comments Initial Comments: GENERAL: Patient is well-developed and well-nourished. Patient is nontoxic and well- hydrated and is in mild distress. ENT: Neck is soft and supple. No significant lymphadenopathy is noted. Oropharynx is clear. Moist mucous membranes. Neck has full range of motion without eliciting any pain. EYES: The sclera were anicteric and conjunctiva were pink and moist. Extraocular movements were intact and pupils were equal round and reactive to light. Eyelids were unremarkable. PULMONARY: Unlabored respirations. Good breath sounds bilaterally. No audible rales rho nchi or wheezing was noted. CARDIOVASCULAR: There is a regular rate and rhythm without any murmurs gallops or rubs. ABDOMEN: Soft and nontender with normal bowel sounds. RECTAL: On rectal exam the stool was black and will be tested. SKIN: Skin is clear with no lesions or rashes and otherwise unremarkable. NEUROLOGIC: Patient is alert and oriented x3. Cranial nerves II through XII are grossly intact. Motor and sensory are also intact. Normal speech, volume and content. Symmetrical smile. MUSCULOSKELETAL: Normal extremities with adequate strength and full range of motion. LYMPHATICS: No significant lymphadenopathy is noted PSYCHIATRIC: Normal psychiatric evaluation. Limitations: no limitations Course Vital Signs 06/18/24 11:56 Temperature 97.9 F Pulse Rate 82 Respiratory 18 Rate Blood Pressure 157/71 O2 Sat by Pulse 95 Oximetry Medical Decision Making - Medical Decision Making Was pt. sent in by a medical professional or institution (MICHAEL Mishra, BUSINESS SERVICES DIRECTOR, urgent care, hospital, or half-way...) When possible be specific @ -No Did you speak to anyone other than the patient for history (EMS, parent, family, police, friend...)? What history was obtained from this source @ -No Did you review nursing and triage notes (agree or disagree)? Why? @ -I reviewed and agree with nursing and triage notes Were old charts reviewed (outside hosp., previous admission, EMS record, old EKG, old radiological studies, urgent care reports/EKG's, half-way records)? Report findings @ -No old charts were reviewed Differential Diagnosis? @ -Acute diarrhea, viral syndrome, C. difficile, anemia, GI bleed, this is not an all-inclusive list EKG interpreted by me (3pts min.). @ -As above X-rays interpreted by me (1pt min.). @ -None done CT interpreted by me (1pt min.). @ -None done U/S interpreted by me (1pt. min.). @ -None done What testing was considered but not performed or refused? (CT, X-rays, U/S, labs)? Why? @ -None What meds were considered but not given or refused? Why? @ -None Did you discuss the management of the patient with other professionals (professionals i.e. , MICHAEL, BUSINESS SERVICES DIRECTOR, lab, RT, psych nurse, social media designer, military professional, teacher, hospital chief executive officer, case assistant)? Give summary @ -No Was smoking cessation discussed for >3mins.? @ -No Was critical care preformed (if so, how long)? @ -No Were there social determinants of health that impacted care today? How? (Homelessness, low income, unemployed, alcoholism, drug addiction, transportation, low edu. Level, literacy, decrease access to med. care, correction, rehab)? @ -No Was there de-escalation of care discussed even if they declined (Discuss DNR or withdrawal of care, Hospice)? DNR status @ -No What co-morbidities impacted this encounter? (DM, HTN, Smoking, COPD, CAD, C ancer, CVA, ARF, Chemo, Hep., AIDS, mental health diagnosis, sleep apnea, morbid obesity)? @ -None Was patient admitted / discharged? Hospital course, mention meds given and route, prescriptions, significant lab abnormalities, going to OR and other pertinent info. @ -Patient's hemoglobin was stable. Patient's guaiac was negative. Patient was given Lomotil in the emergency department she will be sent home with some Lomotil to slow the diarrhea down. Patient also received IV fluids. Undiagnosed new problem with uncertain prognosis? @ -No Drug Therapy requiring intensive monitoring for toxicity (Heparin, Nitro, Insulin, Cardizem)? @ -No Were any procedures done? @ -No Diagnosis/symptom? @ -Acute diarrhea Acute, or Chronic, or Acute on Chronic? @ -Acute Uncomplicated (without systemic symptoms) or Complicated (systemic symptoms)? @ -Complicated Side effects of treatment? @ -No Exacerbation, Progression, or Severe Exacerbation? @ -No Poses a threat to life or bodily function? How? (Chest pain, [place], [place], pneumonia, PE, COPD, DKA, ARF, appy, cholecystitis, CVA, Diverticulitis, Homicidal, Suicidal, threat to staff... and all critical care pts) @ -No - Lab Data Result diagrams: 06/18/24 12:24 06/18/24 12: Lab Results 06/18/24 06/18/24 06/18/24 Range/Units 12:08 12: 12:24 WBC 3.9 (3.8-10.6) k/uL RBC 3.41 L (3.80-5.40) m/uL Hgb 11.2 L (11.4-16.0) gm/dL Hct 35.4 (34.0-46.0) % MCV 104.1 H D (80.0-100.0) fL MCH 33.0 (25.0-35.0) pg MCHC 31.7 (31.0-37.0) g/dL RDW 14.5 (11.5-15.5) % Plt Count 259 (150-450) k/uL MPV 7.4 Neutrophils % 74 % Lymphocytes % 17 % Monocytes % 4 % Eosinophils % 3 % Basophils % 1 % Neutrophils # 2.9 (1.3-7.7) k/uL Lymphocytes # 0.7 L (1.0-4.8) k/uL Monocytes # 0.2 (0-1.0) k/uL Eosinophils # 0.1 (0-0.7) k/uL Basophils # 0.0 (0-0.2) k/uL Macrocytosis Slight PT (10.0-12.5) sec INR (<1.2) APTT (22.0-30.0) sec Sodium (137-145) mmol/L Potassium (3.5-5.1) mmol/L Chloride (98-107) mmol/L Carbon Dioxide (22-30) mmol/L Anion Gap mmol/L BUN (7-17) mg/dL Creatinine (0.52-1.04) mg/dL Est GFR (CKD-EPI)AfAm (>60 ml/min/1.73 sqM) Est GFR (CKD-EPI)NonAf (>60 ml/min/1.73 sqM) Glucose (74-99) mg/dL POC Glucose (mg/dL) 205 H (70-110) mg/dL POC Glu Auto Claims Adjuster ID Currie Loki Calcium (8.4-10.2) mg/dL Magnesium (1.6-2.3) mg/dL Total Bilirubin (0.2-1.3) mg/dL AST (14-36) U/L ALT (4-34) U/L Alkaline Phosphatase (38-126) U/L Total Protein (6.3-8.2) g/dL Albumin (3.5-5.0) g/dL Stool Occult Blood Negative (Negative) 06/18/24 06/18/24 Range/Units 12:24 12:24 WBC (3.8-10.6) k/uL RBC (3.80-5.40) m/uL Hgb (11.4-16.0) gm/dL Hct (34.0-46.0) % MCV (80.0-100.0) fL MCH (25.0-35.0) pg MCHC (31.0-37.0) g/dL RDW (11.5-15.5) % Plt Count (150-450) k/uL MPV Neutrophils % % Lymphocytes % % Monocytes % % Eosinophils % % Basophils % % Neutrophils # (1.3-7.7) k/uL Lymphocytes # (1.0-4.8) k/uL Monocytes # (0-1.0) k/uL Eosinophils # (0-0.7) k/uL Basophils # (0-0.2) k/uL Macrocytosis PT 10.7 (10.0-12.5) sec INR 1.0 (<1.2) APTT 22.3 (22.0-30.0) sec Sodium 138 (137-145) mmol/L Potassium 4.0 (3.5-5.1) mmol/L Chloride 116 H (98-107) mmol/L Carbon Dioxide 13 L (22-30) mmol/L Anion Gap 9 mmol/L BUN 31 H (7-17) mg/dL Creatinine 1.75 H (0.52-1.04) mg/dL Est GFR (CKD-EPI)AfAm 30 (>60 ml/min/1.73 sqM) Est GFR (CKD-EPI)NonAf 26 (>60 ml/min/1.73 sqM) Glucose 189 H (74-99) mg/dL POC Glucose (mg/dL) (70-110) mg/dL POC Glu Auto Claims Adjuster ID Calcium 8.8 (8.4-10.2) mg/dL Magnesium 2.0 (1.6-2.3) mg/dL Total Bilirubin 0.7 (0.2-1.3) mg/dL AST 20 (14-36) U/L ALT 10 (4-34) U/L Alkaline Phosphatase 97 (38-126) U/L Total Protein 6.7 (6.3-8.2) g/dL Albumin 3.6 (3.5-5.0) g/dL Stool Occult Blood (Negative) Disposition Clinical Impression: Acute diarrhea Disposition: HOME SELF-CARE Condition: Good Instructions (If sedation given, give patient instructions): Acute Diarrhea (ED) Is patient prescribed a controlled substance at d/c from ED?: No Referrals: Kyara Stockton MD [Primary Care Provider] - 1-2 days Time of Disposition: 13:20
[2024-06-18 12:38] LABS: Basophils % (A) 1 %; Eosinophils # (A) 0.1 k/uL (0-0.7); Eosinophils % (A) 3 %; HCT 35.4 % (34.0-46.0); HGB 11.2 gm/dL (11.4-16.0); Lymphocytes # (A) 0.7 k/uL (1.0-4.8); Lymphocytes % (A) 17 %; MCHC 31.7 g/dL (31.0-37.0); Macrocytosis Slight; Mean Platelet Volume 7.4; Monocytes # (A) 0.2 k/uL (0-1.0); Monocytes % (A) 4 %; Neutrophils # (A) 2.9 k/uL (1.3-7.7); Neutrophils % (A) 74 %; Platelet Count 259 k/uL (150-450); RBC 3.41 m/uL (3.80-5.40); RDW 14.5 % (11.5-15.5); WBC 3.9 k/uL (3.8-10.6)
[2024-06-18 12:47] LABS: Partial Thromboplastin Time 22.3 sec (22.0-30.0); Prothrombin Time 10.7 sec (10.0-12.5)
[2024-06-18 12:49] LABS: ALT 10 U/L (4-34); African American GFR (CKD) 30 (>60 ml/min/1.73 sqM); Albumin 3.6 g/dL (3.5-5.0); Anion Gap 9 mmol/L; Blood Urea Nitrogen 31 mg/dL (7-17); Calcium 8.8 mg/dL (8.4-10.2); Carbon Dioxide 13 mmol/L (22-30); Chloride 116 mmol/L (98-107); Glucose 189 mg/dL (74-99); MCV 104.1 fL (80.0-100.0); Non-African American GFR(CKD) 26 (>60 ml/min/1.73 sqM); Sodium 138 mmol/L (137-145); Total Bilirubin 0.7 mg/dL (0.2-1.3); Total Protein 6.7 g/dL (6.3-8.2)
[2024-06-18 12:58] LABS: AST 20 U/L (14-36); Alkaline Phosphatase 97 U/L (38-126)
[2024-06-18] MEDS: DIPHENOX-ATROP 2.5-0.025 MG 1 EACH TAB PO STA (13:28)
[2024-06-18] MEDS: DIPHENOX-ATROP STARTER PACK 8 TAB BTL PO STA (13:29)
[2024-06-18 13:31] VITALS: BP 142/74; PULSE 83
== END 2024-06-18 14:12 | disposition home or self-care (01) ==
LOC: EC 11:55
DX: R19.7 Diarrhea, unspecified (principal); Z87.891 Personal history of nicotine dependence
CPT/HCPCS: 36415; 80053; 82272; 83735; 85025; 85610; 85730; 99285

== ENCOUNTER 2024-10-02 09:32 | Emergency (ER) | payer MEDICARE ==
[2024-10-02 09:39] VITALS: RESP 20
--- NOTE | 2024-10-02 09:46 | ED ---
Lower Extremity Injury HPI - General Source: patient, RN notes reviewed Mode of arrival: ambulatory Limitations: no limitations <Rosa Isela Garnett - Last Filed: 10/02/24 09:45> - General Source: patient, RN notes reviewed Mode of arrival: ambulatory Limitations: no limitations - History of Present Illness Onset/Timin -: week(s) Injury: Hip: Right, Leg: Right Severity scale (1-10): 10 <Teofilo Forman - Last Filed: 10/02/24 12:14> - General Chief Complaint: Extremity Injury, Lower Stated Complaint: R hip pain Time Seen by Provider: 10/02/24 09:45 - History of Present Illness Initial Comments: Quick note: 84-year-old female presented to the ER via EMS for evaluation of right hip and leg pain for weeks. No injury. Patient states is a burning pain. (Rosa Isela Garnett) This is an wheelchair-bound 84-year-old female with history of CAD, DM and OA presenting with [id number] for right leg/hip pain (/) x 2 weeks. Patient states pain worsens when attempting to stand, noting a burning sensation. Patient states hip/leg also tends to "give out" while walking. States pain occasionally radiates to her foot with attempted weightbearing. Denies recent fall or known trauma. Denies associated paresthesia, saddle paresthesia, urinary incontinence/retention. (Teofilo Forman) - Related Data Home Medications Medication Instructions Recorded Confirmed Latanoprost/Pf [Latanoprost 0.005% 1 drop BOTH EYES HS 06/11/20 05/08/24 Eye Drop] Levothyroxine Sodium [Synthroid] 125 mcg PO DAILY 01/25/22 05/08/24 Dapagliflozin Propanediol [Farxiga] 5 mg PO HS 09/08/22 05/08/24 Tolterodine Tartrate [Tolterodine 4 mg PO DAILY 09/08/22 05/08/24 Tartrate ER] carvediloL [Coreg] 6.25 mg PO DAILY 07/15/23 05/08/24 rOPINIRole HCL [Requip] 0.5 mg PO HS 07/15/23 05/08/24 Clotrimazole/Betameth Cream 1 applic TOPICAL BID PRN 05/08/24 05/08/24 [Lotrisone] Furosemide [Lasix] 20 mg PO DAILY 05/08/24 05/08/24 INSULIN ASPART (NovoLOG) [NovoLOG See Protocol SQ ACHS PRN 05/08/24 05/08/24 (formulary)] Insulin Detemir (Levemir) [Levemir] 20 unit SQ DAILY 05/08/24 05/08/24 Losartan [Cozaar] 50 mg PO DAILY 05/08/24 05/08/24 Pantoprazole [Protonix] 40 mg PO DAILY 05/08/24 05/08/24 metFORMIN HCL [Glucophage] 500 mg PO BID 05/08/24 05/08/24 Previous Rx's Medication Instructions Recorded Famotidine [Pepcid] 20 mg PO HS 30 Days #30 tab 01/29/22 Folic Acid 1 mg PO DAILY tab 01/29/22 amLODIPine [Norvasc] 10 mg PO DAILY tab 07/20/23 Ibuprofen 400 mg PO Q8H PRN #20 tablet 10/02/24 Lidocaine 4% Patch 1 patch TOPICAL Q24H PRN #10 patch 10/02/24 Allergies Allergy/AdvReac Type Severity Reaction Status Date / Time No Known Allergies Allergy Verified 10/02/24 09:40 Review of Systems ROS Other: All systems not noted in ROS Statement are negative. <Rosa Isela Garnett - Last Filed: 10/02/24 09:45> ROS Other: All systems not noted in ROS Statement are negative. <Teofilo Forman - Last Filed: 10/02/24 12:14> ROS Statement: Those systems with pertinent positive or pertinent negative responses have been documented in the HPI. Past Medical History Past Medical History: Coronary Artery Disease (CAD), Cancer, Heart Failure, Diabetes Mellitus, GERD/Reflux, Hyperlipidemia, Hypertension, Myocardial Infarction ([place]), Osteoarthritis (OA), Thyroid Disorder Additional Past Medical History / Comment(s): has seen retinal specialist for shots. frequent urination with some leakage. uses w/c Last Myocardial Infarction Date:: 2010 History of Any Multi-Drug Resistant Organisms: ESBL Date of last positivie culture/infection: 07/21/23 MDRO Source:: Urine Past Surgical History: Coronary Bypass/CABG, Orthopedic Surgery Additional Past Surgical History / Comment(s): cabg 2010, cataracts. left hip replaced. surgery for breast and colon cancer. Past Anesthesia/Blood Transfusion Reactions: No Reported Reaction Additional Past Anesthesia/Blood Transfusion Reaction / Comment(s): no blood transfusions Past Psychological History: No Psychological Hx Reported Smoking Status: Former smoker Past Alcohol Use History: None Reported Past Drug Use History: None Reported - Past Family History Father Family Medical History: Cancer Additional Family Medical History / Comment(s): lung cancer Mother Additional Family Medical History / Comment(s): heart issues <Rosa Isela Garnett - Last Filed: 10/02/24 09:45> General Exam Limitations: no limitations <Rosa Isela Garnett - Last Filed: 10/02/24 09:45> Limitations: no limitations General appearance: alert, in no apparent distress Head exam: Present: atraumatic, normocephalic, normal inspection Eye exam: Present: normal appearance, PERRL, EOMI. Absent: scleral icterus, conjunctival injection, periorbital swelling ENT exam: Present: normal exam, mucous membranes moist Neck exam: Present: normal inspection. Absent: tenderness, meningismus, lymphadenopathy Respiratory exam: Present: normal lung sounds bilaterally. Absent: respiratory distress, wheezes, rales, rhonchi, stridor Cardiovascular Exam: Present: regular rate, normal rhythm, normal heart sounds. Absent: systolic murmur, diastolic murmur, rubs, gallop, clicks GI/Abdominal exam: Present: soft, normal bowel sounds. Absent: distended, tenderness, guarding, rebound, rigid Extremities exam: Present: full ROM, normal capillary refill. Absent: tenderness (Negative right lateral hip tenderness, crepitus, deformity. Patient notes some femoral tenderness without crepitus or deformity), pedal edema, joint swelling, calf tenderness Back exam: Present: tenderness (Positive right superior gluteus point tenderness), paraspinal tenderness (Positive right paralumbar tenderness without muscle spasm), other (RLE distal neurovascular intact. Posterior tibialis pulse +2. Dorsi/plantarflexion strength 5/5.). Absent: muscle spasm, vertebral tenderness Neurological exam: Present: alert, oriented X3, CN II-XII intact Psychiatric exam: Present: normal affect, normal mood Skin exam: Present: warm, dry, intact, normal color. Absent: rash <Teofilo Forman - Last Filed: 10/02/24 12:14> - General Exam Comments Initial Comments: Visual Physical Exam Vital signs reviewed General: Well-appearing, nontoxic, no acute distress. Head: Normocephalic, atraumatic Eyes: PERRLA, EOMI ENT: Airway patent Chest: Nonlabored breathing Skin: No visual rash, normal skin tone Neuro: Alert and oriented 3 Musculoskeletal: No gross abnormalities (Rosa Isela Garnett) Course Vital Signs 10/02/24 09:37 Temperature 98.1 F Pulse Rate 67 Respiratory 20 Rate Blood Pressure 165/65 O2 Sat by Pulse 98 Oximetry Medical Decision Making <Rosa Isela Garnett - Last Filed: 10/02/24 09:45> <Teofilo Forman - Last Filed: 10/02/24 12:14> - Medical Decision Making I performed the quick note portion of this chart. Electronically signed by Rosa Isela Garnett PA-C (Rosa Isela Garnett) Was pt. sent in by a medical professional or institution (MICHAEL Mishra, CORPORATE SECRETARY, urgent care, hospital, or senior living...) When possible be specific @ -[No] Did you speak to anyone other than the patient for history (EMS, parent, family, police, friend...)? What history was obtained from this source @ -[id number] provided portion of HPI Did you review nursing and triage notes (agree or disagree)? Why? @ -[I reviewed and agree with nursing and triage notes] Were old charts reviewed (outside hosp., previous admission, EMS record, old EKG, old radiological studies, urgent care reports/EKG's, senior living records)? Report findings @ -[No old charts were reviewed] Differential Diagnosis (chest pain, altered mental status, abdominal pain women, abdominal pain men, vaginal bleeding, weakness, fever, dyspnea, syncope, headache, dizziness, GI bleed, back pain, seizure, CVA, palpatations, mental health, musculoskeletal)? @ -Differential Musculoskeletal Muscular strain, contusion, ligament sprain, fracture, arthritis, septic arthritis, bursitis, cellulitis, muscle spasm, nerve compression, DVT, arterial occlusion, herpes zoster, electrolyte abnormality, tumor.... This is not meant to be in all inclusive list EKG interpreted by me (3pts min.). @ -Not done X-rays interpreted by me (1pt min.). @ -[None done] CT interpreted by me (1pt min.). @ -[None done] U/S interpreted by me (1pt. min.). @ -[None done] What testing was considered but not performed or refused? (CT, X-rays, U/S, labs)? Why? @ -[None] What meds were considered but not given or refused? Why? @ -[None] Did you discuss the management of the patient with other professionals (professionals i.e. , PA, CORPORATE SECRETARY, lab, RT, psych nurse, socially responsible investment adviser, transportation planning engineer, teacher, chief communications officer, correctional case records supervisor)? Give summary @ -[No] Was smoking cessation discussed for >3mins.? @ -[No] Was critical care preformed (if so, how long)? @ -[No] Were there social determinants of health that impacted care today? How? (Homelessness, low income, unemployed, alcoholism, drug addiction, transportation, low edu. Level, literacy, decrease access to med. care, fpc, rehab)? @ -[No] Was there de-escalation of care discussed even if they declined (Discuss DNR or withdrawal of care, Hospice)? DNR status @ -[No] What co-morbidities impacted this encounter? (DM, HTN, Smoking, COPD, CAD, Cancer, CVA, ARF, Chemo, Hep., AIDS, mental health diagnosis, sleep apnea, morbid obesity)? @ -DM, OA Was patient admitted / discharged? Hospital course, mention meds given and route, prescriptions, significant lab abnormalities, going to OR and other pertinent info. @ -[hospital course] Undiagnosed new problem with uncertain prognosis? @ -[No] Drug Therapy requiring intensive monitoring for toxicity (Heparin, Nitro, Insulin, Cardizem)? @ -[No] Were any procedures done? @ -[No] Diagnosis/symptom? @ -Sciatica Acute, or Chronic, or Acute on Chronic? @ -Acute Uncomplicated (without systemic symptoms) or Complicated (systemic symptoms)? @ -Uncomplicated Side effects of treatment? @ -[No] Exacerbation, Progression, or Severe Exacerbation? @ -[No] Poses a threat to life or bodily function? How? (Chest pain, [place], [place], pneumonia, PE, COPD, DKA, ARF, appy, cholecystitis, CVA, Diverticulitis, Homicidal, Suicidal, threat to staff... and all critical care pts) @ -[No] (Teofilo Forman) Disposition <Rosa Isela Garnett - Last Filed: 10/02/24 09:45> Is patient prescribed a controlled substance at d/c from ED?: No Time of Disposition: 11:52 <Teofilo Forman - Last Filed: 10/02/24 12:14> Clinical Impression: Sciatica Disposition: HOME SELF-CARE Condition: Good Instructions (If sedation given, give patient instructions): Sciatica (ED) Additional Instructions: Follow-up with PCP/orthopedics/neurology for ongoing management of right lower extremity pain Prescriptions: Ibuprofen 400 mg PO Q8H PRN #20 tablet PRN Reason: Pain Lidocaine 4% Patch 1 patch TOPICAL Q24H PRN #10 patch PRN Reason: Pain Referrals: Alex Smith MD [Primary Care Provider] - 1-2 days Robert Paige DO [Doctor of Osteopathic Medicine] - 1-2 days Rob Mcguire DO [STAFF PHYSICIAN] - 1-2 days
--- NOTE | 2024-10-02 10:10 | XR ---
EXAMINATION TYPE: XR femur RT DATE OF EXAM: 10/02/2024 10:05 AM COMPARISON: None. CLINICAL INDICATION: Female, 84 years old with history of pain, pain TECHNIQUE: XR femur RT XX views were obtained. FINDINGS: There is no acute fracture or dislocation seen of the femur. The hip and knee joints roberta ear within normal limits. The overlying soft tissue appears unremarkable. Healed fractures of the ri ght inferior and superior pubic rami. IMPRESSION: There is no acute fracture or dislocation seen of the femur. [facility], , 10/02/2024 10:08 AM
--- NOTE | 2024-10-02 10:11 | XR ---
EXAMINATION TYPE: XR Hip RT and AP Pelvis DATE OF EXAM: 10/02/2024 10:05 AM COMPARISON: None. CLINICAL INDICATION: Female, 84 years old with history of pain, pain TECHNIQUE: XR Hip RT and AP Pelvis views were obtained. AP Pelvis also obtained. FINDINGS: There is no acute fracture/dislocation evident. Fractures of the left superior and inferi or pubic rami. Vascular calcifications The joint space appears within normal limits. The overlying soft tissue appears unremarkable. IMPRESSION: No acute fracture or dislocation. [facility], , 10/02/2024 10:08 AM
[2024-10-02] MEDS: KETOROLAC 15 MG/ML 1 ML VIAL IM STA (11:21)
[2024-10-02] MEDS: LIDOCAINE 4% PATCH TOPICAL ONE (11:25)
[2024-10-02 12:49] VITALS: BP 162/66; PULSE 66; TEMP 98.4
== END 2024-10-02 13:04 | disposition home or self-care (01) ==
LOC: EC 09:32
DX: M54.31 Sciatica, right side (principal); E11.9 Type 2 diabetes mellitus without complications; M19.90 Unspecified osteoarthritis, unspecified site; Z87.891 Personal history of nicotine dependence
CPT/HCPCS: 73502; 73552; 99283; 96372; J1885

== ENCOUNTER 2024-10-18 12:55 | Inpatient (IN) | payer MEDICARE ==
--- NOTE | 2024-10-18 13:39 | ED ---
Lower Extremity Injury HPI <Chapincito Ramirez - Last Filed: 10/18/24 16:54> - General Source: patient, EMS, RN notes reviewed, old records reviewed Mode of arrival: EMS Limitations: physical limitation <Rosa Isela Garnett - Last Filed: 10/18/24 18:43> - General Chief Complaint: Extremity Injury, Lower Stated Complaint: hip dislocation Time Seen by Provider: 10/18/24 13:39 - History of Present Illness Initial Comments: 84-year-old female presented the ER for evaluation of left hip dislocation. Patient reports a left hip arthro[place] [address] Christianson. She states for the past 3 days she has been having discomfort. Patient resides at [facility] living [facility]. Given patient's pain x-rays were completed yesterday which found left hip to be dislocated which prompted emergency department visit. She states this happens often. Patient is wheelchair-bound and does not ambulate. She does require assistance with ADLs. She is taking prescription Morrison and Tylenol for discomfort with minimal relief. She denies any paresthesias to the left lower extremity. No known injuries or falls. Patient has not followed up with Dr. Christianson regarding this. Patient has no other complaints at this time. (Rosa Isela Garnett) - Related Data Home Medications Medication Instructions Recorded Confirmed Latanoprost/Pf [Latanoprost 0.005% 1 drop BOTH EYES HS@199906/11/20 10/18/24 Eye Drop] Levothyroxine Sodium [Synthroid] 125 mcg PO DAILY@0800 01/25/22 10/18/24 Tolterodine Tartrate [Tolterodine 4 mg PO DAILY@79909/08/22 10/18/24 Tartrate ER] carvediloL [Coreg] 6.25 mg PO BID@07/15/23 10/18/24 rOPINIRole HCL [Requip] 0.5 mg PO HS@199907/15/23 10/18/24 Furosemide [Lasix] 20 mg PO DAILY@79905/08/24 10/18/24 Pantoprazole [Protonix] 40 mg PO DAILY@0800 05/08/24 10/18/24 Acetaminophen Tab [Tylenol] 650 mg PO Q4-6H PRN 10/18/24 10/18/24 Aspirin EC [Ecotrin Low Dose] 81 mg PO DAILY@0800 10/18/24 10/18/24 Calcium Carbonate [Tums] 1,000 - 1,500 mg PO DIRECTED PRN 10/18/24 10/18/24 Cholestyramine/Aspartame 4 gm PO AC-TID PRN 10/18/24 10/18/24 [Cholestyramine Light Packet] Ferrous Sulfate [Feosol] 325 mg PO DAILY@0800 10/18/24 10/18/24 HYDROcodone/APAP 5-325MG [[place]rison 1 tab PO TID@0800,1399,199910/18/24 10/18/24 5-325] Insulin Glargine,Hum.rec.anlog 16 units SQ DAILY@79910/18/24 10/18/24 [Lantus Solostar Pen] Insulin Lispro [humaLOG Kwikpen] See Protocol SQ ACHS 10/18/24 10/18/24 Losartan [Cozaar] 25 mg PO DAILY@79910/18/24 10/18/24 Magnesium Hydroxide [Milk of 2,400 mg PO DIRECTED PRN 10/18/24 10/18/24 Magnesia] Na Phos,M-B/Na Phos,Di-Ba [Fleet 133 ml RECTAL DAILY PRN 10/18/24 10/18/24 Adult] Sennosides [Senokot] 8.6 mg PO BID@0800,199910/18/24 10/18/24 Vitamin B Complex 1 cap PO DAILY@0810/18/24 10/18/24 amLODIPine [Norvasc] 5 mg PO DAILY@0810/18/24 10/18/24 bisacodyL [Dulcolax] 10 mg RECTAL DAILY PRN 10/18/24 10/18/24 polyethylene glycoL 3350 [Miralax] 17 gm PO DAILY@79910/18/24 10/18/24 Allergies Allergy/AdvReac Type Severity Reaction Status Date / Time No Known Allergies Allergy Verified 10/18/24 14:05 Review of Systems ROS Other: All systems not noted in ROS Statement are negative. <Chapincito Ramirez - Last Filed: 10/18/24 16:54> ROS Other: All systems not noted in ROS Statement are negative. <Rosa Isela Garnett - Last Filed: 10/18/24 18:43> ROS Statement: Those systems with pertinent positive or pertinent negative responses have been documented in the HPI. Past Medical History Past Medical History: Coronary Artery Disease (CAD), Cancer, Heart Failure, Diabetes Mellitus, GERD/Reflux, Hyperlipidemia, Hypertension, Myocardial Infarction ([place]), Osteoarthritis (OA), Thyroid Disorder Additional Past Medical History / Comment(s): has seen retinal specialist for shots. frequent urination with some leakage. uses w/cm, chronic hip dislocations Last Myocardial Infarction Date:: 2010 History of Any Multi-Drug Resistant Organisms: ESBL Date of last positivie culture/infection: 07/21/23 MDRO Source:: Urine Past Surgical History: Coronary Bypass/CABG, Orthopedic Surgery Additional Past Surgical History / Comment(s): cabg 2010, cataracts. left hip replaced. surgery for breast and colon cancer. Past Anesthesia/Blood Transfusion Reactions: No Reported Reaction Additional Past Anesthesia/Blood Transfusion Reaction / Comment(s): no blood transfusions Past Psychological History: No Psychological Hx Reported Smoking Status: Former smoker Past Alcohol Use History: None Reported Past Drug Use History: None Reported - Past Family History Father Family Medical History: Cancer Additional Family Medical History / Comment(s): lung cancer Mother Additional Family Medical History / Comment(s): heart issues <Rosa Isela Garnett - Last Filed: 10/18/24 18:43> General Exam Limitations: no limitations General appearance: alert, in no apparent distress Respiratory exam: Present: normal lung sounds bilaterally. Absent: respiratory distress, wheezes, rales, rhonchi, stridor Cardiovascular Exam: Present: regular rate, normal rhythm, normal heart sounds. Absent: systolic murmur, diastolic murmur, rubs, gallop, clicks Extremities exam: Present: normal capillary refill (1+ right DP pulse), other (Posterior deviation of left hip. Left lower extremity is internally rotated and shortened.) Neurological exam: Present: alert, oriented X3, CN II-XII intact Skin exam: Present: warm, dry, intact, normal color. Absent: rash <Rosa Isela Garnett - Last Filed: 10/18/24 18:43> Course <Rosa Isela Garnett - Last Filed: 10/18/24 18:43> Vital Signs 10/18/24 10/18/24 10/18/24 13:00 15:26 15:33 Temperature Pulse Rate 74 74 75 Respiratory 18 21 20 Rate Blood Pressure 144/58 168/69 163/66 O2 Sat by Pulse 95 96 97 Oximetry 10/18/24 10/18/24 10/18/24 15:35 15:40 15:45 Temperature Pulse Rate 75 73 77 Respiratory 20 15 10 L Rate Blood Pressure 172/69 136/51 121/57 O2 Sat by Pulse 99 99 99 Oximetry 10/18/24 10/18/24 10/18/24 15:50 15:55 16:00 Temperature Pulse Rate 74 75 80 Respiratory 13 14 16 Rate Blood Pressure 145/61 145/65 157/63 O2 Sat by Pulse 98 98 98 Oximetry 10/18/24 10/18/24 10/18/24 16:05 16:10 16:15 Temperature Pulse Rate 74 76 77 Respiratory 16 18 14 Rate Blood Pressure 157/63 152/65 152/68 O2 Sat by Pulse 100 100 96 Oximetry 10/18/24 10/18/24 10/18/24 16:30 16:45 18:28 Temperature 97.5 F L Pulse Rate 86 91 82 Respiratory 14 16 16 Rate Blood Pressure 173/84 190/83 144/91 O2 Sat by Pulse 96 96 95 Oximetry - Reevaluation(s) Reevaluation #1: 10/18/24 16:29 Patient reevaluated. No signs of acute distress. Patient reporting no current pain. 10/18/24 18:28 Case discussed with . He is agreeable for admission for pain management. Medicine on consult. (Rosa Isela Garnett) Procedures - Orthopedic Joint Reduction Joint #1 Consent Obtained: written consent Side: left Joint Reduction Location: hip Analgesia: procedural sedation Technique Used: traction/counter-traction Post-Reduction Neuro Exam: intact Post-Reduction Vascular Exam: intact Post Reduction X-Ray Obtained: Yes Post Reduction X-Ray Results: reduced Patient Tolerated Procedure: well - Procedural Sedation *Procedural Sedation Start Time: 15:33 *Procedural Sedation Stop Time: 16:15 *Risks,benefits, and alternative therapies discussed?: Yes *Patient indicates understanding of risk/benefit discussion?: Yes *Indications: fracture/dislocation reduction *Previous Adverse Reaction to Anesthesia/Sedation?: No * Testing Complete?: No Reason Test Not Complete:: Age > 60 *ASA Class: I *Mallampati Airway Score: 1 *Time of Last PO Intake: 09:00 Preparation: box inspector applied, pulse oximeter, capnometry used, supplemental O2 applied, suction/airway equipment at bedside, IV secured Ketamine: IV Ketamine Dose: 25 IV Propofol Dose (mgs): 75 Complications: none Patient Tolerated Procedure: well <Chapincito Ramirez - Last Filed: 10/18/24 16:54> - Orthopedic Joint Reduction Joint #1 Additional Comments: Apply knee immobilizer. Patient redislocated the hip as initial x-ray was being obtained however I was able to successfully reduce it a second time. (Chapincito Ramirez) Medical Decision Making - Radiology Data Radiology results: report reviewed, image reviewed <Rosa Isela Garnett - Last Filed: 10/18/24 18:43> - Medical Decision Making Was pt. sent in by a medical professional or institution (, PA, AT RISK PARAPROFESSIONAL, urgent care, hospital, or correction...) When possible be specific @ -Patient sent by [facility] for evaluation of left hip dislocation. Did you speak to anyone other than the patient for history (EMS, parent, family, police, friend...)? What history was obtained from this source @ -No Did you review nursing and triage notes (agree or disagree)? Why? @ -I reviewed and agree with nursing and triage notes Were old charts reviewed (outside hosp., previous admission, EMS record, old EKG, old radiological studies, urgent care reports/EKG's, correction records)? Report findings @ -No old charts were reviewed Differential Diagnosis (chest pain, altered mental status, abdominal pain women, abdominal pain men, vaginal bleeding, weakness, fever, dyspnea, syncope, headache, dizziness, GI bleed, back pain, seizure, CVA, palpatations, mental health, musculoskeletal)? @ -Differential Musculoskeletal:Muscular strain, contusion, ligament sprain, fracture, arthritis, septic arthritis, bursitis, cellulitis, muscle spasm, nerve compression, DVT, arterial occlusion, herpes zoster, electrolyte abnormality, tumor.... This is not meant to be in all inclusive list EKG interpreted by me (3pts min.). @ -None done X-rays interpreted by me (1pt min.). @ -Left hip AP pelvis x-ray showing a posterior left hip dislocation. Postreduction films showing improved alignment. There is a persistent osseous fragment to the lateral hip. CT interpreted by me (1pt min.). @ -None done U/S interpreted by me (1pt. min.). @ -None done What testing was considered but not performed or refused? (CT, X-rays, U/S, labs)? Why? @ -None What meds were considered but not given or refused? Why? @ -None Did you discuss the management of the patient with other professionals (professionals i.e. , PA, AT RISK PARAPROFESSIONAL, lab, RT, psych nurse, social worker masters, corn cooker, teacher, corporate responsibility officer, nurse outreach case manager)? Give summary @ -Yes, case discussed with on-call orthopedics, Dr. Mirza. Given concern of chronic left hip dislocation and reoccurrence he excepted admission for possible placement. Was smoking cessation discussed for >3mins.? @ -No Was critical care preformed (if so, how long)? @ -No Were there social determinants of health that impacted care today? How? (Homelessness, low income, unemployed, alcoholism, drug addiction, transportation, low edu. Level, literacy, decrease access to med. care, care home, rehab)? @ -No Was there de-escalation of care discussed even if they declined (Discuss DNR or withdrawal of care, Hospice)? DNR status @ -No What co-morbidities impacted this encounter? (DM, HTN, Smoking, COPD, CAD, Cancer, CVA, ARF, Chemo, Hep., AIDS, mental health diagnosis, sleep apnea, morbid obesity)? @ -None Was patient admitted / discharged? Hospital course, mention meds given and route, prescriptions, significant lab abnormalities, going to OR and other pertinent info. @ -Admitted. 84-year-old female presented the ER via EMS for evaluation of left hip dislocation. Upon rooming, history and physical exam completed. Vitals with acceptable limits. Left lower extremity is internally rotated and shortened. Patient is neurovascularly intact. Left hip AP pelvis x-ray performed showing a posterior left hip dislocation. Conscious sedation was performed, see note above for reduction of left hip dislocation. Knee immobilizer placed. Postreduction film showing improved alignment with a persistent osseous fragment to the lateral hip. Patient monitored in the ER for approximately 1 hour post sedation. Upon reevaluation, patient resting comfo rtably on stretcher no signs of acute distress. Patient reporting no pain when not moving but increase in pain with movement. Patient was offered admission and is agreeable for pain control and further evaluation of chronic hip dislocation. This was discussed with orthopedics, Dr. Mirza, who is agreeable. Abduction pillow ordered, per orthopedics. Patient remained in knee immoblizer and neurovascularly intact throughout emergency department stay. Medicine will be on consult. CBC and CMP ordered and pending at time of admission. Case discussed with ED attending, Dr. Ramirez. Undiagnosed new problem with uncertain prognosis? @ -No Drug Therapy requiring intensive monitoring for toxicity (Heparin, Nitro, Insulin, Cardizem)? @ -No Were any procedures done? @ -No Diagnosis/symptom? @ -Left hip dislocation Acute, or Chronic, or Acute on Chronic? @ -Chronic Uncomplicated (without systemic symptoms) or Complicated (systemic symptoms)? @ -Complicated Side effects of treatment? @ -No Exacerbation, Progression, or Severe Exacerbation? @ -No Poses a threat to life or bodily function? How? (Chest pain, [place], [place], pneumonia, PE, COPD, DKA, ARF, appy, cholecystitis, CVA, Diverticulitis, Homicidal, Suicidal, threat to staff... and all critical care pts) @ -Possibly (Rosa Isela Garnett) Disposition <Chapincito Ramirez - Last Filed: 10/18/24 16:54> Is patient prescribed a controlled substance at d/c from ED?: No Time of Disposition: 18:28 <Rosa Isela Garnett - Last Filed: 10/18/24 18:43> Clinical Impression: Hip dislocation, left Disposition: ADMITTED IP TO THIS HOSP Condition: Stable Additional Instructions: Keep left knee straight and knee immobilizer in place for the next 4 to 5 days. Follow-up with PCP and Dr. Christianson. Return to the ER for any new or worsening symptoms. Referrals: Alex Smith MD [Primary Care Provider] - 1-2 days Matt Christianson MD [STAFF PHYSICIAN] - 1-2 days
--- NOTE | 2024-10-18 14:21 | XR ---
EXAMINATION TYPE: XR Hip LT and AP Pelvis DATE OF EXAM: 10/18/2024 2:05 PM COMPARISON the patient tolerated: 10/02/2024 CLINICAL INDICATION: Female, 84 years old with history of dislocation, pain TECHNIQUE: XR Hip LT and AP Pelvis; hip was examined in the frontal and lateral projections and a AP pelvis. FINDINGS/IMPRESSION: 1. Superior posterior left hip dislocation. The femoral head is on the edge of the cup component. 2. Remote right inferior superior pubic rami fractures. 3. Severe atherosclerosis of the arterial vasculature. [facility], , 10/18/2024 2:19 PM
[2024-10-18] MEDS: KETAMINE 10 MG/ML 20 ML VIAL IV STA (15:34)
[2024-10-18] MEDS: PROPOFOL 10 MG/ML 20 ML VIAL IV ONE ×3 (15:35→15:42)
[2024-10-18] MEDS: SODIUM CHLORIDE 0.9% 1,000 ML IV ONE (15:35)
--- NOTE | 2024-10-18 16:16 | XR ---
EXAMINATION TYPE: XR Hip Limited LT DATE OF EXAM: 10/18/2024 3:51 PM COMPARISON: Same day CLINICAL INDICATION: Female, 84 years old with history of post reduction; PHH, pain TECHNIQUE: XR Hip Limited LT; Frontal view FINDINGS/IMPRESSION: Reduction of left total hip arthroplasty. There is osseous fragment now lateral to the hip possibly r epresenting a new fracture. [facility], , 10/18/2024 4:13 PM
--- NOTE | 2024-10-18 18:03 | XR ---
EXAMINATION TYPE: XR Hip Limited LT DATE OF EXAM: 10/18/2024 CLINICAL INDICATION: Female, 84 years old with history of post reduction, Pain TECHNIQUE: Portable AP view of the left hip is obtained. COMPARISON: Left hip x-ray earlier today.. FINDINGS: Persistent satisfactory reduction of left hip arthroplasty. Persistent osseous fragment lat eral to the hip. Medial arteriovascular calcification redemonstrated. IMPRESSION: As above. No significant change from most recent prior. [facility], , 10/18/2024 6:00 PM
[2024-10-18] MEDS ORDERED: NALOXONE 0.4 MG/ML 1 ML VIAL IV PRN (18:22)
[2024-10-18] MEDS ORDERED: bisacodyL 10 MG SUPP RECTAL PRN (18:26)
[2024-10-18] MEDS ORDERED: CHOLESTYRAMINE (WITH SUGAR) 4 GM PACKET PO PRN (18:26)
[2024-10-18] MEDS ORDERED: CALCIUM CARBONATE 500 MG CHEWABLE PO PRN (18:26)
[2024-10-18] MEDS ORDERED: ACETAMINOPHEN TAB 325 MG TAB PO PRN (18:26)
[2024-10-18 18:58] LABS: Basophils % (A) 0 %; Eosinophils # (A) 0.4 k/uL (0-0.7); Eosinophils % (A) 5 %; HCT 26.7 % (34.0-46.0); HGB 8.8 gm/dL (11.4-16.0); Hypochromasia Slight; Lymphocytes # (A) 0.9 k/uL (1.0-4.8); Lymphocytes % (A) 11 %; MCH 31.4 pg (25.0-35.0); MCV 95.4 fL (80.0-100.0); Mean Platelet Volume 7.1; Monocytes # (A) 0.3 k/uL (0-1.0); Monocytes % (A) 4 %; Neutrophils # (A) 6.3 k/uL (1.3-7.7); Neutrophils % (A) 78 %; Platelet Count 346 k/uL (150-450); RDW 14.1 % (11.5-15.5); WBC 8.1 k/uL (3.8-10.6)
[2024-10-18 19:18] LABS: ALT 15 U/L (4-34); AST 22 U/L (14-36); African American GFR (CKD) 31 (>60 ml/min/1.73 sqM); Albumin 3.7 g/dL (3.5-5.0); Alkaline Phosphatase 55 U/L (38-126); Anion Gap 11 mmol/L; Blood Urea Nitrogen 49 mg/dL (7-17); Calcium 9.1 mg/dL (8.4-10.2); Carbon Dioxide 18 mmol/L (22-30); Chloride 110 mmol/L (98-107); Non-African American GFR(CKD) 27 (>60 ml/min/1.73 sqM); Sodium 139 mmol/L (137-145); Total Bilirubin 0.4 mg/dL (0.2-1.3); Total Protein 6.5 g/dL (6.3-8.2)
[2024-10-18 19:37] LABS: Glucose 49 mg/dL (74-99)
[2024-10-18 20:06] LABS: Glucose,Whole Blood 62 mg/dL (70-110)
[2024-10-18] MEDS: carvediloL 6.25 MG TAB PO SCH (20:11)
[2024-10-18] MEDS: HYDROcodone/APAP 5-325MG 1 EACH TAB PO SCH (20:11)
[2024-10-18 20:26] LABS: Glucose,Whole Blood 84 mg/dL (70-110)
[2024-10-18 22:32] LABS: Glucose,Whole Blood 114 mg/dL (70-110)
[2024-10-18] MEDS ORDERED: DEXTROSE 50% SYRINGE 50 ML IVP PRN ×2 (22:39)
--- NOTE | 2024-10-18 22:48 | P.CONS ---
History of Present Illness - Reason for Consult Consult date: 10/18/24 Medical management Requesting physician: Maria Mirza - Chief Complaint Left hip pain - History of Present Illness Very pleasant 84-year-old patient follows with visiting physicians. Patient is a resident of assisted [facility]. Does use a wheelchair. Patient had chronic pain in the left hip for months. It was finally decided do an x-ray and was found to have left hip was dislocated. Patient does have urine incontinence and wears diapers. Otherwise been bowel movements are good. Appetite is good. Denies any recent new trauma. Denies any chest pain or shortness of breath. Has a known history of coronary bypass 2013. In 2013 patient had a left hip arthroplasty by Dr. Christianson. Apparently in the ER dislocation was replaced Review of systems: GEN.: None EYES: None HEENT: Slight decreased hearing NECK: None RESPIRATORY: None CARDIOVASCULAR: None GASTROINTESTINAL: None GENITOURINARY: [Chronic urine incontinence MUSCULOSKELETAL: Joint pains including left hip LYMPHATICS: None HEMATOLOGICAL: None PSYCHIATRY: Slightly forgetful NEUROLOGICAL: Wheelchair-bound Social history: Resident of [facility]. Does use a wheelchair. Stopped smoking in 2010 t. for last 1 month Physical examination: VITAL SIGNS: 98.1, 78, 14, 156 x 64, 95% room air GENERAL: BMI 19.1, laying in bed thin built awake. EYES: Pupils equal. Conjunctiva anibal l. HEENT: External appearance of nose and ears normal, oral cavity grossly normal. Decreased hearing NECK: JVD not raised; masses not palpable. HEART: First and second heart sounds are normal; no edema. LUNGS: Respiratory rate normal; clear to auscultation. ABDOMEN: Soft, nontender, liver spleen not palpable, no masses palpable. PSYCH: Alert and oriented x3; mood and affect anibal l able to answer simple questions. MUSCULOSKELETAL:No Clubbing/cyanosis;muscles-grossly intact. Limited range of motion left hip. Primary OA in multiple joints. Loss of muscle mass subcutaneous fat NEUROLOGICAL: Cranial nerves grossly intact; no facial asymmetry, power and sensation grossly intact. LYMPHATICS: No lymph nodes palpable in the axilla and neck INVESTIGATIONS, reviewed in the clinical context: October 18, 2024: White count 8.1 hemoglobin 8.8 platelet 346 sodium 139 potassium 4 BUN 49 creatinine 1.71 blood glucose 49 albumin 3.7 Left hip x-ray: Superior posterior left hip dislocation. Assessment plan: -Left hip dislocation. Prior arthroplasty [place] [address] Christianson. Apparently this was reduced in the ER. Follow with orthopedics. Note patient's had chronic pain in the left hip for months. This was discovered 2 days ago with an x-ray. -Chronic gait dysfunction. At the baseline patient does use a wheelchair -Primary osteoarthritis multiple joints Tylenol as needed -Diabetes mellitus type 2, chronically on insulin Diabetic diet with follow Accu-Cheks sliding scale. Lantus. Accu-Cheks sliding scale insulin -Mild protein calorie malnutrition Consult dietitian -Coronary artery disease with a coronary bypass in 2010. Patient currently has no cardiac symptoms Coreg Telemetry. -Chronic congestive heart failure, EF not known -GERD Protonix -Essential hypertension Coreg. Amlodipine. Cozaar. -Hypothyroid Synthroid 125 mcg a day -Restless leg syndrome Requip 0.5 mg nightly Care was discussed with the patient. Questions answered Thank you Dr. Mirza Past Medical History Past Medical History: Coronary Artery Disease (CAD), Cancer, Heart Failure, Diabetes Mellitus, GERD/Reflux, Hyperlipidemia, Hypertension, Myocardial Infarction ([place]), Osteoarthritis (OA), Thyroid Disorder Additional Past Medical History / Comment(s): has seen retinal specialist for shots. frequent urination with some leakage. uses w/cm, chronic hip dislocations Last Myocardial Infarction Date:: 2010 History of Any Multi-Drug Resistant Organisms: ESBL Year Discovered:: 07/21/23 MDRO Source:: Urine Past Surgical History: Coronary Bypass/CABG, Orthopedic Surgery Additional Past Surgical History / Comment(s): cabg 2010, cataracts. left hip replaced. surgery for breast and colon cancer. Past Anesthesia/Blood Transfusion Reactions: No Reported Reaction Additional Past Anesthesia/Blood Transfusion Reaction / Comm: no blood transfusions Past Psychological History: No Psychological Hx Reported Smoking Status: Former smoker Past Alcohol Use History: None Reported Past Drug Use History: None Reported - Past Family History Father Family Medical History: Cancer Additional Family Medical History / Comment(s): lung cancer Mother Additional Family Medical History / Comment(s): heart issues Medications and Allergies Home Medications Medication Instructions Recorded Confirmed Type Latanoprost/Pf [Latanoprost 0.005% 1 drop BOTH EYES HS@199906/11/20 10/18/24 History Eye Drop] Levothyroxine Sodium [Synthroid] 125 mcg PO DAILY@79901/25/22 10/18/24 History Tolterodine Tartrate [Tolterodine 4 mg PO DAILY@79909/08/22 10/18/24 History Tartrate ER] carvediloL [Coreg] 6.25 mg PO BID@799,199907/15/23 10/18/24 History rOPINIRole HCL [Requip] 0.5 mg PO HS@199907/15/23 10/18/24 History Furosemide [Lasix] 20 mg PO DAILY@79905/08/24 10/18/24 History Pantoprazole [Protonix] 40 mg PO DAILY@79905/08/24 10/18/24 History Acetaminophen Tab [Tylenol] 650 mg PO Q4-6H PRN 10/18/24 10/18/24 History Aspirin EC [Ecotrin Low Dose] 81 mg PO DAILY@79910/18/24 10/18/24 History Calcium Carbonate [Tums] 1,000 - 1,500 mg PO DIRECTED PRN 10/18/24 10/18/24 History Cholestyramine/Aspartame 4 gm PO AC-TID PRN 10/18/24 10/18/24 History [Cholestyramine Light Packet] Ferrous Sulfate [Feosol] 325 mg PO DAILY@79910/18/24 10/18/24 History HYDROcodone/APAP 5-325MG [[place] 1 tab PO TID@0800,1400,199910/18/24 10/18/24 History 5-325] Insulin Glargine,Hum.rec.anlog 16 units SQ DAILY@79910/18/24 10/18/24 History [Lantus Solostar Pen] Insulin Lispro [humaLOG Kwikpen] See Protocol SQ ACHS 10/18/24 10/18/24 History Losartan [Cozaar] 25 mg PO DAILY@79910/18/24 10/18/24 History Magnesium Hydroxide [Milk of 2,400 mg PO DIRECTED PRN 10/18/24 10/18/24 History Magnesia] Na Phos,M-B/Na Phos,Di-Ba [Fleet 133 ml RECTAL DAILY PRN 10/18/24 10/18/24 History Adult] Sennosides [Senokot] 8.6 mg PO BID@08,199910/18/24 10/18/24 History Vitamin B Complex 1 cap PO DAILY@0810/18/24 10/18/24 History amLODIPine [Norvasc] 5 mg PO DAILY@0800 10/18/24 10/18/24 History bisacodyL [Dulcolax] 10 mg RECTAL DAILY PRN 10/18/24 10/18/24 History polyethylene glycoL 3350 [Miralax] 17 gm PO DAILY@0800 10/18/24 10/18/24 History Allergies Allergy/AdvReac Type Severity Reaction Status Date / Time No Known Allergies Allergy Verified 10/18/24 14:05 Physical Exam Vitals: Vital Signs Temp Pulse Pulse Resp BP BP Pulse Ox 10/18/24 21:28 98.1 F 78 14 156/64 95 10/18/24 21:02 97.6 F 89 16 159/65 98 10/18/24 20:14 90 16 165/93 97 10/18/24 18:28 97.5 F L 82 16 144/91 95 10/18/24 16:45 91 16 190/83 96 10/18/24 16:30 86 14 173/84 96 10/18/24 16:15 77 14 152/68 96 10/18/24 16:10 76 18 152/65 100 10/18/24 16:05 74 16 157/63 100 10/18/24 16:00 80 16 157/63 98 10/18/24 15:55 75 14 145/65 98 10/18/24 15:50 74 13 145/61 98 10/18/24 15:45 77 10 L 121/57 99 10/18/24 15:40 73 15 136/51 99 10/18/24 15:35 75 20 172/69 99 10/18/24 15:33 75 20 163/66 97 10/18/24 15:26 74 21 168/69 96 10/18/24 13:00 74 18 144/58 95 Intake and Output 10/18/24 10/18/24 10/18/24 06:59 14:59 22:59 Other: Weight 50.349 kg Results CBC & Chem 7: 10/18/24 18:49 10/18/24 18:49 Labs: Abnormal Lab Results - Last 24 Hours (Table) 10/18/24 10/18/24 10/18/24 Range/Units 18:49 18:49 20:04 RBC 2.80 L (3.80-5.40) m/uL Hgb 8.8 L (11.4-16.0) gm/dL Hct 26.7 L (34.0-46.0) % Lymphocytes # 0.9 L (1.0-4.8) k/uL Chloride 110 H (98-107) mmol/L Carbon Dioxide 18 L (22-30) mmol/L BUN 49 H (7-17) mg/dL Creatinine 1.71 H (0.52-1.04) mg/dL Glucose 49 L* (74-99) mg/dL POC Glucose (mg/dL) 62 L (70-110) mg/dL 10/18/24 Range/Units 22:31 RBC (3.80-5.40) m/uL Hgb (11.4-16.0) gm/dL Hct (34.0-46.0) % Lymphocytes # (1.0-4.8) k/uL Chloride (98-107) mmol/L Carbon Dioxide (22-30) mmol/L BUN (7-17) mg/dL Creatinine (0.52-1.04) mg/dL Glucose (74-99) mg/dL POC Glucose (mg/dL) 114 H (70-110) mg/dL
--- NOTE | 2024-10-18 23:08 | XR ---
EXAMINATION TYPE: XR chest 1V portable DATE OF EXAM: 10/18/2024 11:00 PM COMPARISON: none. CLINICAL INDICATION: Female, 84 years old with history of Preop; [facility] TECHNIQUE: XR chest 1V portable Frontal view of the chest. FINDINGS: Lungs/Pleura: There is no evidence of pleural effusion, focal consolidation, or pneumothorax. Pulmonary vascularity: Unremarkable. Heart/mediastinum: Cardiomediastinal silhouette is unremarkable. Musculoskeletal: No acute osseous pathology. Midline sternotomy wires are noted. Other findings: None Lines/Tubes: IMPRESSION: No acute cardiopulmonary disease/process. [facility], , 10/18/2024 11:06 PM
[2024-10-19] MEDS: ENOXAPARIN 30 MG/0.3 ML SYRINGE SQ SCH (00:17)
[2024-10-19] MEDS: HYDROmorphone 0.5 MG/0.5 ML SYRINGE IVP PRN (00:17)
[2024-10-19] MEDS: LATANOPROST 0.005% OPHTH DROPS 2.5 ML BTL BOTH EYES SCH (00:19)
[2024-10-19 06:22] LABS: Glucose,Whole Blood 81 mg/dL (70-110)
[2024-10-19] MEDS: INSULIN GLARGINE (LANTUS) 100 UNIT/ML SYR SQ SCH (06:27)
[2024-10-19] MEDS: INSULIN LISPRO (HumaLOG) 100 UNIT/ML 10 mL VL SQ SCH (06:27)
[2024-10-19] MEDS: LOSARTAN 25 MG TAB PO SCH (08:18)
[2024-10-19] MEDS: SENNOSIDES 8.6 MG TAB PO SCH (08:18)
[2024-10-19] MEDS: LEVOTHYROXINE 125 MCG TAB PO SCH (08:18)
[2024-10-19] MEDS: ASPIRIN 81 MG PO SCH (08:18)
[2024-10-19] MEDS: PANTOPRAZOLE 40 MG TABLET PO SCH (08:18)
[2024-10-19] MEDS: FUROSEMIDE 20 MG TAB PO SCH (08:18)
[2024-10-19] MEDS: FERROUS SULFATE 325 MG TAB PO SCH (08:19)
[2024-10-19] MEDS: amLODIPine 5 MG TAB PO SCH (08:19)
[2024-10-19] MEDS: polyethylene glycoL 3350 17 GM POWD.PACK PO SCH (08:19)
[2024-10-19] MEDS: OXYBUTYNIN 10 MG TAB.ER.24 PO SCH (08:20)
--- NOTE | 2024-10-19 10:20 | P.HPOR ---
History of Present Illness H&P Date: 10/19/24 Patient is a very pleasant 84-year-old female who has a history of left total hip arthroplasty performed [place] [address] Christianson. She states she frequently dislocates her left hip. She resides at [facility]. After having hip pain she presented to [facility] for further evaluation. She is found to have this location of her left hip. This was reduced in the emergency department. She was placed in a knee immobilizer to help limit her range of motion of her left hip. Currently, she is not complaining of any left hip pain. She states she has not Dr. Christianson outpatient setting but would like to do so. Currently she is admitted for further treatment and evaluation with plans for placement to a rehabilitation facility. Patient was discussed in detail with physical therapy and nursing. Patient may weight-bear as tolerated on her left lower extremity with assistance with physical therapy with left hip precautions with the knee immobilizer intact. We discussed she may utilize physical therapy to help with transfers and to help reduce her chronic dislocations at her left hip. Patient feels this is a good plan of care. She is willing to go to rehab. Case management has been consulted for rehab placement. Medicine has been consulted for medical management. Patient's other medical diagnoses include urinary incontinence with history of coronary bypass surgery, hyperlipidemia, hypertension, thyroid disorder, and myocardial infarction. Patient states she does not ambulate much and usually utilizes a wheelchair. Past Medical History Past Medical History: Coronary Artery Disease (CAD), Cancer, Heart Failure, Diabetes Mellitus, GERD/Reflux, Hyperlipidemia, Hypertension, Myocardial Infarction ([place]), Osteoarthritis (OA), Thyroid Disorder Additional Past Medical History / Comment(s): has seen retinal specialist for shots. frequent urination with some leakage. uses w/cm, chronic hip dislocations Last Myocardial Infarction Date:: 2010 History of Any Multi-Drug Resistant Organisms: ESBL Date of last positivie culture/infection: 07/21/23 MDRO Source:: Urine Past Surgical History: Coronary Bypass/CABG, Orthopedic Surgery Additional Past Surgical History / Comment(s): cabg 2010, cataracts. left hip replaced. lumpectomy R breast cancer, and colon cancer (7 inches removed). Past Anesthesia/Blood Transfusion Reactions: No Reported Reaction Additional Past Anesthesia/Blood Transfusion Reaction / Comment(s): no blood transfusions Past Psychological History: No Psychological Hx Reported Smoking Status: Former smoker Past Alcohol Use History: None Reported Additional Past Alcohol Use History / Comment(s): Pt states she quit smoking in 2010 before she underwent a CABG procedure Past Drug Use History: None Reported - Past Family History Father Family Medical History: Cancer Additional Family Medical History / Comment(s): lung cancer Mother Additional Family Medical History / Comment(s): heart issues Medications and Allergies Home Medications Medication Instructions Recorded Confirmed Type Latanoprost/Pf [Latanoprost 0.005% 1 drop BOTH EYES HS@199906/11/20 10/18/24 History Eye Drop] Levothyroxine Sodium [Synthroid] 125 mcg PO DAILY@79901/25/22 10/18/24 History Tolterodine Tartrate [Tolterodine 4 mg PO DAILY@79909/08/22 10/18/24 History Tartrate ER] carvediloL [Coreg] 6.25 mg PO BID@07/15/23 10/18/24 History rOPINIRole HCL [Requip] 0.5 mg PO HS@199907/15/23 10/18/24 History Furosemide [Lasix] 20 mg PO DAILY@79905/08/24 10/18/24 History Pantoprazole [Protonix] 40 mg PO DAILY@79905/08/24 10/18/24 History Acetaminophen Tab [Tylenol] 650 mg PO Q4-6H PRN 10/18/24 10/18/24 History Aspirin EC [Ecotrin Low Dose] 81 mg PO DAILY@79910/18/24 10/18/24 History Calcium Carbonate [Tums] 1,000 - 1,500 mg PO DIRECTED PRN 10/18/24 10/18/24 History Cholestyramine/Aspartame 4 gm PO AC-TID PRN 10/18/24 10/18/24 History [Cholestyramine Light Packet] Ferrous Sulfate [Feosol] 325 mg PO DAILY@79910/18/24 10/18/24 History HYDROcodone/APAP 5-325MG [[place] 1 tab PO TID@0800,1400,199910/18/24 10/18/24 History 5-325] Insulin Glargine,Hum.rec.anlog 16 units SQ DAILY@79910/18/24 10/18/24 History [Lantus Solostar Pen] Insulin Lispro [humaLOG Kwikpen] See Protocol SQ ACHS 10/18/24 10/18/24 History Losartan [Cozaar] 25 mg PO DAILY@0800 10/18/24 10/18/24 History Magnesium Hydroxide [Milk of 2,400 mg PO DIRECTED PRN 10/18/24 10/18/24 History Magnesia] Na Phos,M-B/Na Phos,Di-Ba [Fleet 133 ml RECTAL DAILY PRN 10/18/24 10/18/24 History Adult] Sennosides [Senokot] 8.6 mg PO BID@0800,199910/18/24 10/18/24 History Vitamin B Complex 1 cap PO DAILY@0800 10/18/24 10/18/24 History amLODIPine [Norvasc] 5 mg PO DAILY@0800 10/18/24 10/18/24 History bisacodyL [Dulcolax] 10 mg RECTAL DAILY PRN 10/18/24 10/18/24 History polyethylene glycoL 3350 [Miralax] 17 gm PO DAILY@0800 10/18/24 10/18/24 History Allergies Allergy/AdvReac Type Severity Reaction Status Date / Time No Known Allergies Allergy Verified 10/18/24 14:05 Physical Examination Osteopathic Statement: *. No significant issues noted on an osteopathic structural exam other than those noted in the History and Physical/Consult. Physical Exam: Patient is awake, alert, and oriented 3 Vital signs stable Good chest excursion with deep inspiration and expiration Abdomen soft nontender No signs or symptoms of DVT; no calf pain No pain with palpation over the left hip No pain with gentle logrolling of the left hip Dorsiflexion plantarflexion Positive sustained on the left Left knee immobilizer intact. Results Pertinent studies: X-rays of the left hip and pelvis taken on 10/18/2024: Evidence of satisfactory reduction of left hip arthroplasty with persistent osseous fragment of the left lateral hip X-rays of the left hip and pelvis taken on 10/18/2024: Superior posterior left hip dislocation - Labs Labs: Abnormal Lab Results - Last 24 Hours (Table) 10/18/24 10/18/24 10/18/24 Range/Units 18:49 18:49 20:04 RBC 2.80 L (3.80-5.40) m/uL Hgb 8.8 L (11.4-16.0) gm/dL Hct 26.7 L (34.0-46.0) % Lymphocytes # 0.9 L (1.0-4.8) k/uL Chloride 110 H (98-107) mmol/L Carbon Dioxide 18 L (22-30) mmol/L BUN 49 H (7-17) mg/dL Creatinine 1.71 H (0.52-1.04) mg/dL Glucose 49 L* (74-99) mg/dL POC Glucose (mg/dL) 62 L (70-110) mg/dL 10/18/24 Range/Units 22:31 RBC (3.80-5.40) m/uL Hgb (11.4-16.0) gm/dL Hct (34.0-46.0) % Lymphocytes # (1.0-4.8) k/uL Chloride (98-107) mmol/L Carbon Dioxide (22-30) mmol/L BUN (7-17) mg/dL Creatinine (0.52-1.04) mg/dL Glucose (74-99) mg/dL POC Glucose (mg/dL) 114 H (70-110) mg/dL H & H 10/18/24 Range/Units 18:49 Hgb 8.8 L (11.4-16.0) gm/dL Hct 26.7 L (34.0-46.0) % Result Diagrams: 10/18/24 18:49 10/18/24 18:49 Assessment and Plan Assessment: Assessment: History of left total hip arthroplasty 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 Minimal ambulator chronically Coronary artery disease Hyperlipidemia Hypertension History of myocardial infarction Thyroid disorder Urinary incontinence (1) History of total left hip arthroplasty Current Visit: Yes Status: Acute Code(s): Z96.642 - PRESENCE OF LEFT ARTIFICIAL HIP JOINT SNOMED Code(s): 583503566208 (2) CAD (coronary artery disease) Current Visit: Yes Status: Acute Code(s): I25.10 - ATHSCL HEART DISEASE OF [place] CORONARY ARTERY W/O ANG PCTRS SNOMED Code(s): 59264314 (3) Hyperlipidemia Current Visit: Yes Status: Acute Code(s): E78.5 - HYPERLIPIDEMIA, UNSPECIFIED SNOMED Code(s): 49013114 (4) Hypertension Current Visit: Yes Status: Acute Code(s): I10 - ESSENTIAL (PRIMARY) HYPERTENSION SNOMED Code(s): 16691561 (5) Thyroid disorder Current Visit: Yes Status: Acute Code(s): E07.9 - DISORDER OF THYROID, UNSPECIFIED SNOMED Code(s): 03871975 (6) Urinary incontinence Current Visit: Yes Status: Acute Code(s): R32 - UNSPECIFIED URINARY INCONTINENCE SNOMED Code(s): 536666840 (7) Hip dislocation, left Current Visit: Yes Status: Acute Code(s): S73.005A - UNSPECIFIED DISLOCATION OF LEFT HIP, INITIAL ENCOUNTER SNOMED Code(s): 798487245 Plan: Plan: 1. Patient sustained multiple chronic dislocations of her left hip. She presented with a left hip dislocation which has been reduced in the emergency department. Currently, we are planning for placement to a rehabilitation facility to help the patient with transfers and to increase her mobility while reducing the likelihood of another dislocation at her left hip. She may work with physical therapy to increase her mobility and work on transfers with left hip precautions. She should keep her left knee immobilizer intact to help reduce possibility of left hip dislocation. Case management has been consulted who is seeing the patient for rehab placement. We will continue to follow the patient until she is cleared and approved for discharge to rehab. She does not need specific treatment for osseous fragment of the left lateral hip. 2. Patient will continue to be seen and examined by medicine for her multiple other medical diagnoses. The patient is seen and examined. I agree with the above. Her prosthesis hardware appears to be in good alignment good position with good stability. There is a small paula fracture at the superior acetabulum possibly as result of the dislocation but the prosthesis appears to be stable and does not need further surgical intervention at this point. If she continues to have regular dislocations we would have to consider the possibility of using a restrained hip with revision surgery however that would be quite a large procedure for her and it would be difficult to determine the efficacy and risk reward issues. She does not ambulate on her own but would like to try to transfer more independently and could have some benefit with rehab and physical therapy. It is okay for her to weight-bear as tolerated. The knee immobilizer does not need to be used at all times but will keep her leg in better position to help limit the chance of recurrent dislocation. Time with Patient: Greater than 30 (Including obtaining history, physical examination, reviewing of imaging, and dictation.)
--- NOTE | 2024-10-19 11:08 | P.PN ---
Progress Note - Text Progress Note Date: 10/19/24 Patient states she felt a pop at her upper left femur. She is currently resting comfortably in bed. She does not have any pain with internal and external rotation of her left hip. She does not have any pain at her left hip with palpation. Her knee immobilizer remains intact. She does have history with multiple chronic left hip dislocations status post left total hip arthroplasty. She thinks that may be what has happened. There is no obvious sign of dislocation at the bedside. We will obtain 2 view x-rays of the left hip to rule out hip dislocation. Patient has not been out of bed since she was recently examined this morning. As an addendum: Repeat x-rays done portable of the left hip in the room have been reviewed. There is no evidence of any new fracture or dislocation. She does have chronic changes at her pubic symphysis and evidence of old pubic rami fracture on the right. There is no evidence of recurrent dislocation currently. She will continue her planned treatment and therapy.
[2024-10-19 11:36] LABS: Glucose,Whole Blood 195 mg/dL (70-110)
--- NOTE | 2024-10-19 11:53 | XR ---
EXAMINATION TYPE: XR Hip Limited LT DATE OF EXAM: 10/19/2024 11:48 AM COMPARISON: 10/18/2024. CLINICAL INDICATION: Female, 84 years old with history of hip pain, possible recurrent disclocation o f JOANNE; PHH, pain TECHNIQUE: XR Hip Limited LT; Frontal view FINDINGS: Post arthroplasty changes, hardware is intact, alignment is appropriate. No evidence of fra cture. No evidence of any acute osseous pathology or joint dislocation. Severe atherosclerosis of the arterial vasculature. Right superior and inferior pubic rami remote fractures. Calcification superio r lateral to the femoral head remains present. IMPRESSION: Hip arthroplasty with hardware intact and in appropriate alignment. There remains fragment a bone in superior lateral aspect of the femoral cup. [facility], , 10/19/2024 11:51 AM
[2024-10-19 13:30] VITALS: BMI 19.0
[2024-10-19 16:36] LABS: Glucose,Whole Blood 119 mg/dL (70-110)
--- NOTE | 2024-10-19 17:05 | P.PN ---
Progress Note - Text Progress Note Date: 10/19/24 - Chief Complaint Left hip pain - History of Present Illness Very pleasant 84-year-old patient follows with visiting physicians. Patient is a resident of assisted living [facility]. Does use a wheelchair. Patient had chronic pain in the left hip for months. It was finally decided do an x-ray and was found to have left hip was dislocated. Patient does have urine incontinence and wears diapers. Otherwise been bowel movements are good. Appetite is good. Denies any recent new trauma. Denies any chest pain or shortness of breath. Has a known history of coronary bypass 2013. In 2013 patient had a left hip arthroplasty by Dr. Christianson. Apparently in the ER dislocation was replaced October 19: Seen this afternoon. Laying in bed. Comfortable. Left leg in a brace. X-ray from today shows hip arthroplasty with hardware intact and appropriate alignment. Therapy in place. Active Medications Acetaminophen (Acetaminophen Tab 325 Mg Tab) 650 mg PO Q4H PRN PRN Reason: Fever and/ or Mild Pain Hydrocodone Bitart/Acetaminophen (Hydrocodone/Apap 5-325mg 1 Each Tab) 1 each PO TID@0800,1400,1999 [facility] Last Admin: 10/19/24 16:05 Dose: Not Given Amlodipine Besylate (Amlodipine 5 Mg Tab) 5 mg PO DAILY@0800 [facility] Last Admin: 10/19/24 08:19 Dose: 5 mg Aspirin (Aspirin 81 Mg) 81 mg PO DAILY@0800 [facility] Last Admin: 10/19/24 08:18 Dose: 81 mg Bisacodyl (Bisacodyl 10 Mg Supp) 10 mg RECTAL DAILY PRN PRN Reason: Constipation Calcium Carbonate/Glycine (Calcium Carbonate 500 Mg Chewable) 1,000 mg PO QID PRN PRN Reason: HEARTBURN/INDIGESTION Carvedilol (Carvedilol 6.25 Mg Tab) 6.25 mg PO BID@0800,1999 [facility] Last Admin: 10/19/24 08:18 Dose: 6.25 mg Cholestyramine Resin (Cholestyramine (With Sugar) 4 Gm Packet) 4 gm PO AC-TID PRN PRN Reason: Diarrhea Dextrose/Water (Dextrose 50% Syringe 50 Ml) 25 ml IVP PER PROTOCOL PRN; Protocol PRN Reason: Hypoglycemia Dextrose/Water (Dextrose 50% Syringe 50 Ml) 50 ml IVP PER PROTOCOL PRN; Protocol PRN Reason: Hypoglycemia Enoxaparin Sodium (Enoxaparin 30 Mg/0.3 Ml Syringe) 30 mg SQ DAILY [facility] Last Admin: 10/19/24 08:17 Dose: 30 mg Ferrous Sulfate (Ferrous Sulfate 325 Mg Tab) 325 mg PO DAILY@0800 [facility] Last Admin: 10/19/24 08:19 Dose: 325 mg Furosemide (Furosemide 20 Mg Tab) 20 mg PO DAILY@0800 [facility] Last Admin: 10/19/24 08:18 Dose: 20 mg Hydromorphone HCl (Hydromorphone 0.5 Mg/0.5 Ml Syringe) 0.5 mg IVP Q4HR PRN PRN Reason: Pain Scale 6 to 10 Last Admin: 10/19/24 11:13 Dose: 0.5 mg Insulin Glargine (Insulin Glargine (Lantus) 100 Unit/Ml Syr) 16 unit SQ DAILY@0700 [facility] Last Admin: 10/19/24 06:27 Dose: Not Given Insulin Human Lispro (Insulin Lispro (Humalog) 100 Unit/Ml 10 Ml Vl) 0 unit SQ ACHS [facility]; Protocol Last Admin: 10/19/24 12:57 Dose: 1 unit Latanoprost (Latanoprost 0.005% Ophth Drops 2.5 Ml Btl) 1 drops BOTH EYES [facility] Last Admin: 10/19/24 00:19 Dose: 1 drops Levothyroxine Sodium (Levothyroxine 125 Mcg Tab) 125 mcg PO DAILY@0800 [facility] Last Admin: 10/19/24 08:18 Dose: 125 mcg Losartan Potassium (Losartan 25 Mg Tab) 25 mg PO DAILY@0800 [facility] Last Admin: 10/19/24 08:18 Dose: 25 mg Naloxone HCl (Naloxone 0.4 Mg/Ml 1 Ml Vial) 0.2 mg IV Q2M PRN PRN Reason: Opioid Reversal Oxybutynin Chloride (Oxybutynin 10 Mg Tab.Er.24) 10 mg PO DAILY [facility] Last Admin: 10/19/24 08:20 Dose: 10 mg Pantoprazole Sodium (Pantoprazole 40 Mg Tablet) 40 mg PO DAILY@0800 [facility] Last Admin: 10/19/24 08:18 Dose: 40 mg Polyethylene Glycol (Polyethylene Glycol 3350 17 Gm Powd.Pack) 17 gm PO DAILY [facility] Last Admin: 10/19/24 08:19 Dose: Not Given Ropinirole HCl (Ropinirole Hcl 0.25 Mg Tab) 0.5 mg PO HS@2000 [facility] Last Admin: 10/18/24 20:11 Dose: 0.5 mg Senna (Sennosides 8.6 Mg Tab) 8.6 mg PO BID [facility] Last Admin: 10/19/24 08:18 Dose: 8.6 mg Social history: Resident of [facility]. Does use a wheelchair. Stopped smoking in 2010 t. for last 1 month Physical examination: VITAL SIGNS: 98.5, 62, 17, 149 x 58, 96% room air GENERAL: BMI 19.1, laying in bed, comfortable EYES: Pupils equal. Conjunctiva anibal l. HEENT: External appearance of nose and ears normal, oral cavity grossly normal. Decreased hearing NECK: JVD not raised; masses not palpable. HEART: First and second heart sounds are normal; no edema. LUNGS: Respiratory rate normal; clear to auscultation. ABDOMEN: Soft, nontender, liver spleen not palpable, no masses palpable. PSYCH: Alert and oriented x3; mood and affect anibal l able to answer simple questions. MUSCULOSKELETAL:No Clubbing/cyanosis;muscles-grossly intact. Limited range of motion left hip. Primary OA in multiple joints. Loss of muscle mass subcutaneous fat. Brace on the left leg INVESTIGATIONS, reviewed in the clinical context: Left hip x-ray [October 19] arthroplasty October 18, 2024: White count 8.1 hemoglobin 8.8 platelet 346 sodium 139 potassium 4 BUN 49 creatinine 1.71 blood glucose 49 albumin 3.7 Left hip x-ray: Superior posterior left hip dislocation. Assessment plan: -Left hip dislocation. Prior arthroplasty [place] [address] Christianson. reduced in the ER. Follow with orthopedics. Note patient's had chronic pain in the left hip for months. This was discovered 2 days ago with an x-ray. PT OT -Chronic gait dysfunction. At the baseline patient does use a wheelchair -Primary osteoarthritis multiple joints Tylenol as needed -Diabetes mellitus type 2, chronically on insulin. Uncontrolled hypoglycemia Diabetic diet with follow Accu-Cheks sliding scale. . 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 -Metabolic acidosis from CKD Add sodium bicarbonate -Mild protein calorie malnutrition Consult dietitian -Coronary artery disease with a coronary bypass in 2010. Patient currently has no cardiac symptoms Coreg Telemetry. -Chronic congestive heart failure, EF not known 2D echo -GERD Protonix -Essential hypertension Coreg. Amlodipine. Cozaar. -Hypothyroid Synthroid 125 mcg a day -Restless leg syndrome Requip 0.5 mg nightly DC Lantus. Renal ultrasound. UA. Hold Lasix. Thank you Dr. Mirza Past Medical History Past Medical History: Coronary Artery Disease (CAD), Cancer, Heart Failure, Diabetes Mellitus, GERD/Reflux, Hyperlipidemia, Hypertension, Myocardial Infarction ([place]), Osteoarthritis (OA), Thyroid Disorder Additional Past Medical History / Comment(s): has seen retinal specialist for shots. frequent urination with some leakage. uses w/cm, chronic hip dislocations Last Myocardial Infarction Date:: 2010 History of Any Multi-Drug Resistant Organisms: ESBL Year Discovered:: 07/21/23 MDRO Source:: Urine Past Surgical History: Coronary Bypass/CABG, Orthopedic Surgery Additional Past Surgical History / Comment(s): cabg 2010, cataracts. left hip replaced. surgery for breast and colon cancer. Past Anesthesia/Blood Transfusion Reactions: No Reported Reaction Additional Past Anesthesia/Blood Transfusion Reaction / Comm: no blood transfusions Past Psychological History: No Psychological Hx Reported Smoking Status: Former smoker Past Alcohol Use History: None Reported Past Drug Use History: None Reported
[2024-10-19] MEDS: SODIUM BICARBONATE TAB 650 MG TAB PO SCH (18:55)
[2024-10-19 20:41] LABS: Glucose,Whole Blood 182 mg/dL (70-110)
--- NOTE | 2024-10-19 21:28 | US ---
EXAMINATION TYPE: US kidneys/renal and bladder DATE OF EXAM: 10/19/2024 Exam done portable COMPARISON: US 2021 CLINICAL INDICATION: Female, 84 years old with history of Evaluate for CKD; TECHNIQUE: Grayscale imaging of the bilateral kidneys and urinary bladder: FINDINGS: EXAM MEASUREMENTS: Right Kidney: 9.5 x 4.6 x 4.0 cm Left Kidney: 8.9 x 4.7 x 4.0 cm Difficult and limited study due to overlying bowel gas Right Kidney: 0.8cm echogenic focus medial Left Kidney: 0.6cm echogenic focus mid pole Bladder: wnl Bilateral Jets seen: no Gallbladder: cholelithiasis There is no evidence for hydronephrosis at this point in time. Corticomedullary differentiation is ma intained bilaterally. Shadowing medial right kidney 0.8 cm calculus. Shadowing left midpole 0.6 cm ca lculus. No masses are identified. The urinary bladder is anechoic. Multiple small layering calculi w ithin the gallbladder. IMPRESSION: 1. No hydronephrosis. 2. Nonobstructive bilateral renal calculi. 3. Cholelithiasis. [facility], , 10/19/2024 9:26 PM
[2024-10-20 02:03] VITALS: PULSE 66
[2024-10-20 03:22] LABS: Appearance,Urine Clear (Clear); Bacteria,Urine Rare /hpf; Bilirubin,Urine Negative (Negative); Blood,Urine Trace (Negative); Budding Yeast,Urine Rare /hpf; Color,Urine Colorless; Glucose,Urine (UA) Negative (Negative); Ketones,Urine Negative (Negative); Leukocyte Esterase,Urine Moderate (Negative); Mucus,Urine Rare /hpf; Nitrite,Urine Negative (Negative); PH, Urine 5.5 (5.0-8.0); Protein,Urine Trace (Negative); RBC,Urine 3 /hpf (0-5); Specific Gravity,Urine 1.014 (1.001-1.035); Squamous Epithelial Cell,Urine <1 /hpf (0-4); Urobilinogen,Urine <2.0 mg/dL (<2.0); WBC,Urine 44 /hpf (0-5)
[2024-10-20 06:23] LABS: Glucose,Whole Blood 129 mg/dL (70-110)
[2024-10-20 06:28] LABS: African American GFR (CKD) 35 (>60 ml/min/1.73 sqM); Anion Gap 6 mmol/L; Blood Urea Nitrogen 34 mg/dL (7-17); Calcium 9.3 mg/dL (8.4-10.2); Carbon Dioxide 23 mmol/L (22-30); Chloride 111 mmol/L (98-107); Glucose 115 mg/dL (74-99); Non-African American GFR(CKD) 31 (>60 ml/min/1.73 sqM); Potassium 4.2 mmol/L (3.5-5.1); Sodium 140 mmol/L (137-145)
[2024-10-20 07:41] VITALS: BP 141/57; RESP 20; TEMP 98.7
--- NOTE | 2024-10-20 09:37 | P.DS ---
Providers Date of admission: 10/18/24 20:00 Expected date of discharge: 10/20/24 Attending physician: Maria Mirza Consults: 10/18/24 18:22 Consult Physician Urgent Consulting Provider: Tomás Rahman Consult Reason/Comments: med managment/hip dislocation Do you want consulting provider notified?: Yes Primary care physician: Alex Smith MD - Discharge Diagnosis(es) (1) History of total left hip arthroplasty Current Visit: Yes Status: Acute (2) CAD (coronary artery disease) Current Visit: Yes Status: Acute (3) Hyperlipidemia Current Visit: Yes Status: Acute (4) Hypertension Current Visit: Yes Status: Acute (5) Thyroid disorder Current Visit: Yes Status: Acute (6) Urinary incontinence Current Visit: Yes Status: Acute (7) Hip dislocation, left Current Visit: Yes Status: Acute Hospital Course: This is a pleasant 84-year-old female who presented with dislocation of her left hip. This was reduced in the emergency department. Patient has been experiencing chronic left hip dislocations for years. She has a history of left total hip arthroplasty performed [place] [address] Christianson. She is currently resting comfortably in bed. Patient does not have any significant pain at her left hip. She has a knee immobilizer intact. She does not qualify for discharge to [facility] rehabilitation facility. She is planning for discharge back to [facility] assisted living. She will plan to follow-up with Dr. Christianson in the outpatient setting to further address her chronic difficulties with dislocation of her left hip. Patient should continue to utilize knee immobilizer loosely while at rest for better positioning. She should also be utilizing a pillow in between her legs while sleeping. She is encouraged to continue working with staff at her assisted living facility for mobilization and transfers. She does not ambulate often. She is encouraged to continue using a walker or other aid to aid in her mobility as needed. Condition on day of discharge stable. Patient will be discharged back to her assisted living facility. Patient's other medical diagnoses include hyperlipidemia, coronary artery disease, hypertension, history of myocardial infarction, thyroid disorder, and urinary incontinence. She must be cleared by medicine prior to discharge back to her assisted living facility. Physical Exam on day of discharge: Patient is awake, alert, and oriented 3 Vital signs stable Good chest excursion with deep inspiration and expiration No signs or symptoms of DVT; no calf pain No pain with palpation over the left hip No pain with gentle logrolling of the left hip Dorsiflexion plantarflexion Positive sustained on the left Left knee immobilizer intact. Procedures: Reduction of left hip dislocation in the emergency department Patient Condition at Discharge: Stable Plan - Discharge Summary New Discharge Prescriptions: No Action Latanoprost/Pf [Latanoprost 0.005% Eye Drop] 1 drop BOTH EYES HS@2000 Levothyroxine Sodium [Synthroid] 125 mcg PO DAILY@0800 carvediloL [Coreg] 6.25 mg PO BID@0800,1999 Pantoprazole [Protonix] 40 mg PO DAILY@0800 Acetaminophen Tab [Tylenol] 650 mg PO Q4-6H PRN PRN Reason: Fever And/ Or Pain Cholestyramine/Aspartame [Cholestyramine Light Packet] 4 gm PO AC-TID PRN PRN Reason: Diarrhea HYDROcodone/APAP 5-325MG [[place] 5-325] 1 tab PO TID@0800,1400,1999 Insulin Glargine,Hum.rec.anlog [Lantus Solostar Pen] 16 units SQ DAILY@0800 Losartan [Cozaar] 25 mg PO DAILY@0800 polyethylene glycoL 3350 [Miralax] 17 gm PO DAILY@0800 Sennosides [Senokot] 8.6 mg PO BID@0800,1999 Tolterodine Tartrate [Tolterodine Tartrate ER] 4 mg PO DAILY@0800 rOPINIRole HCL [Requip] 0.5 mg PO HS@2000 Furosemide [Lasix] 20 mg PO DAILY@0800 amLODIPine [Norvasc] 5 mg PO DAILY@0800 Aspirin EC [Ecotrin Low Dose] 81 mg PO DAILY@0800 bisacodyL [Dulcolax] 10 mg RECTAL DAILY PRN PRN Reason: Constipation Ferrous Sulfate [Feosol] 325 mg PO DAILY@0800 Insulin Lispro [humaLOG Kwikpen] See Protocol SQ ACHS Magnesium Hydroxide [Milk of Magnesia] 2,400 mg PO DIRECTED PRN PRN Reason: 2 days no BM Na Phos,M-B/Na Phos,Di-Ba [Fleet Adult] 133 ml RECTAL DAILY PRN PRN Reason: Constipation Vitamin B Complex 1 cap PO DAILY@0800 Calcium Carbonate [Tums] 1,000 - 1,500 mg PO DIRECTED PRN PRN Reason: heartburn/indigestion Discharge Medication List Latanoprost/Pf [Latanoprost 0.005% Eye Drop] 1 drop BOTH EYES HS@199906/11/20 [History] Levothyroxine Sodium [Synthroid] 125 mcg PO DAILY@79901/25/22 [History] Tolterodine Tartrate [Tolterodine Tartrate ER] 4 mg PO DAILY@79909/08/22 [History] carvediloL [Coreg] 6.25 mg PO BID@799,199907/15/23 [History] rOPINIRole HCL [Requip] 0.5 mg PO HS@199907/15/23 [History] Furosemide [Lasix] 20 mg PO DAILY@79905/08/24 [History] Pantoprazole [Protonix] 40 mg PO DAILY@79905/08/24 [History] Acetaminophen Tab [Tylenol] 650 mg PO Q4-6H PRN 10/18/24 [History] Aspirin EC [Ecotrin Low Dose] 81 mg PO DAILY@79910/18/24 [History] Calcium Carbonate [Tums] 1,000 - 1,500 mg PO DIRECTED PRN 10/18/24 [History] Cholestyramine/Aspartame [Cholestyramine Light Packet] 4 gm PO AC-TID PRN 10/18/24 [History] Ferrous Sulfate [Feosol] 325 mg PO DAILY@79910/18/24 [History] HYDROcodone/APAP 5-325MG [[place] 5-325] 1 tab PO TID@0800,1400,199910/18/24 [History] Insulin Glargine,Hum.rec.anlog [Lantus Solostar Pen] 16 units SQ DAILY@79910/18/24 [History] Insulin Lispro [humaLOG Kwikpen] See Protocol SQ ACHS 10/18/24 [History] Losartan [Cozaar] 25 mg PO DAILY@79910/18/24 [History] Magnesium Hydroxide [Milk of Magnesia] 2,400 mg PO DIRECTED PRN 10/18/24 [History] Na Phos,M-B/Na Phos,Di-Ba [Fleet Adult] 133 ml RECTAL DAILY PRN 10/18/24 [History] Sennosides [Senokot] 8.6 mg PO BID@08,199910/18/24 [History] Vitamin B Complex 1 cap PO DAILY@79910/18/24 [History] amLODIPine [Norvasc] 5 mg PO DAILY@79910/18/24 [History] bisacodyL [Dulcolax] 10 mg RECTAL DAILY PRN 10/18/24 [History] polyethylene glycoL 3350 [Miralax] 17 gm PO DAILY@79910/18/24 [History] Follow up Appointment(s)/Referral(s): Alex Smith MD [Primary Care Provider] - 1-2 days Matt Christianson MD [STAFF PHYSICIAN] - 1-2 days Activity/Diet/Wound Care/Special Instructions: 1. Patient is to follow-up with Dr. Christianson in the outpatient setting at [facility] following discharge 2. Patient should continue to utilize knee immobilizer loosely while at rest for better positioning. 3. Patient should also be utilizing a pillow in between her legs while sleeping. 4. Patient is encouraged to continue working with staff at her assisted living facility for mobilization and transfers. 5. Patient is encouraged to continue using a walker or other aid to aid in her mobility as needed. 6. Return to the ER for any new or worsening symptoms. . Discharge Disposition: OTHER INSTITUTION NOT DEFINED
--- NOTE | 2024-10-20 11:39 | P.PN ---
Progress Note - Text Progress Note Date: 10/20/24 Patient states she sneezing felt increased pain at her upper left femur. Her knee immobilizer remains intact. She does have history with multiple chronic left hip dislocations status post left total hip arthroplasty. 2 view x-rays of the left hip were ordered and performed to rule out hip dislocation. x-ray imaging has been reviewed. There is no evidence of left hip dislocation. Her hardware at her left hip remains intact and in good position. Do not see new fracture or dislocation. She is clear for discharge today as scheduled back to assisted living.
--- NOTE | 2024-10-20 11:39 | XR ---
EXAMINATION TYPE: XR Hip Complete LT DATE OF EXAM: 10/20/2024 CLINICAL INDICATION: Female, 84 years old with history of rule out dislocation, Pain TECHNIQUE: AP and frogleg views of the left hip are obtained. COMPARISON: Left femur x-ray May 08, 2024. FINDINGS: There is no acute fracture/dislocation evident in the left hip. Metallic prosthesis redemo nstrated. Hardware position is stable and satisfactory. Medial arterial vascular calcification again seen. IMPRESSION: There is no acute fracture or dislocation in the left hip prosthesis. [facility], , 10/20/2024 11:36 AM
--- NOTE | 2024-10-20 12:00 | CA ---
Transthoracic Echo Report Name: Sarina Nicolas Age: 84 Gender: F : 1940 Exam Date: 10/20/2024 07:29 Exam Location: [place] [facility] Ht (in): 64 Wt (lb): 111 Ordering Physician: Tomás Rahman MD Attending/Referring Phys: Van Helper Myrna Broderick RDCS Procedure CPT: Indications: chf Cardiac Hx: Technical Quality: Good Contrast 1: Total Dose (mL): Contrast 2: Total Dose (mL): MEASUREMENTS (Male / Female) Normal Values 2D ECHO LV Diastolic Diameter PLAX 3.9 cm 4.2 - 5.9 / 3.9 - 5.3 cm IVS Diastolic Thickness 1.4 cm 0.6 - 1.0 / 0.6 - 0.9 cm LVPW Diastolic Thickness 1.2 cm 0.6 - 1.0 / 0.6 - 0.9 cm LV Relative Wall Thickness 0.7 LVOT Diameter 2.2 cm LV Diastolic Volume MOD BP 97.1 cm??? 67 - 155 / 56 - 104 cm??? LV Systolic Volume MOD BP 30.4 cm??? 22 - 58 / 19 - 49 cm??? LV Ejection Fraction MOD BP 68.7 % >= 55 % LV Cardiac Index MOD BP 3196.9 cm???/min???m??? LV Diastolic Volume MOD 4C 91.7 cm??? LV Systolic Volume MOD 4C 32.5 cm??? LV Ejection Fraction MOD 4C 64.6 % LV Cardiac Index MOD 4C 2839.9 cm???/min???m??? LV Diastolic Length 4C 8.4 cm LV Systolic Length 4C 7.3 cm LV Diastolic Volume MOD 2C 94.7 cm??? LV Systolic Volume MOD 2C 28.5 cm??? LV Ejection Fraction MOD 2C 70.0 % LV Cardiac Index MOD 2C 3176.7 cm???/min???m??? LV Diastolic Length 2C 7.8 cm LV Systolic Length 2C 7.4 cm LA Volume 67.8 cm??? 18 - 58 / 22 - 52 cm??? LA Volume Index 45.2 cm???/m??? 16 - 28 cm???/m??? M-MODE LV Diastolic Diameter MM 3.9 cm 4.2 - 5.9 / 3.9 - 5.3 cm LV Systolic Diameter MM 2.4 cm LV Cardiac Index MM Teich 2143.5 cm???/min???m??? IVS Diastolic Thickness MM 1.4 cm 0.6 - 1.0 / 0.6 - 0.9 cm LVPW Diastolic Thickness MM 1.4 cm 0.6 - 1.0 / 0.6 - 0.9 cm LV Relative Wall Thickness MM 0.7 0.24 - 0.42 / 0.22 - 0.42 LV Mass Index MM 135.1 g/m??? 49 - 115 / 43 - 95 g/m??? DOPPLER AV Peak Velocity 140.9 cm/s AV Peak Gradient 7.9 mmHg AV Mean Velocity 97.3 cm/s AV Mean Gradient 4.1 mmHg AV Velocity Time Integral 31.1 cm LVOT Peak Velocity 113.2 cm/s LVOT Peak Gradient 5.1 mmHg LVOT Velocity Time Integral 25.8 cm LVOT Stroke Volume 99.1 cm??? LVOT Stroke Volume Index 65.0 ml/m??? LVOT Cardiac Index 4747.5 cm???/min???m??? AV Area Cont Eq vti 3.2 cm??? AV Area Cont Eq pk 3.1 cm??? MV Area PHT 3.4 cm??? Mitral E Point Velocity 84.8 cm/s Mitral A Point Velocity 111.0 cm/s Mitral E to A Ratio 0.8 MV Deceleration Time 223.3 ms PV Peak Velocity 91.9 cm/s PV Peak Gradient 3.4 mmHg FINDINGS Left Ventricle Left ventricular ejection fraction is estimated at 60-65 %. Moderately increased left ventricular mass. Moderately increased septal wall thickness. Mildly increased posterior wall thickness. Moderately decreased midwall fractional shortening. Severely increased left ventricular relative wall thickness. No obvious regional wall motion abnormalities. Right Ventricle Right ventricular dilatation. Normal right ventricular global systolic function. Unable to estimate the right ventricular systolic pressure. Right Atrium Right atrial dilatation. Left Atrium Moderately increased left atrial volume. Mildly increased left atrial area. Mitral Valve Mitral valve thickened. Mitral annular calcification. No evidence for mitral valve prolapse. No mitral stenosis. No mitral regurgitation. Aortic Valve Trileaflet aortic valve. Diffuse thickening (sclerosis) of the aortic valve cusps without reduced excursion. No aortic stenosis. No aortic regurgitation. Tricuspid Valve Structurally normal tricuspid valve. No tricuspid stenosis. Trace tricuspid regurgitation. Pulmonic Valve Structurally normal pulmonic valve. No pulmonic stenosis. Trace pulmonic regurgitation. Pericardium No pericardial effusion. Aorta Normal size aortic root and proximal ascending aorta. CONCLUSIONS Indication: Congestive heart failure LVH with preserved systolic function Biatrial enlargement Previewed by: Dr. Josemanuel Junior MD (Electronically Signed) Final Date: 20 October 2024 11:59
--- NOTE | 2024-10-20 18:12 | P.PN ---
Progress Note - Text Progress Note Date: 10/20/24 - Chief Complaint Left hip pain - History of Present Illness Very pleasant 84-year-old patient follows with visiting physicians. Patient is a resident of assisted living [facility]. Does use a wheelchair. Patient had chronic pain in the left hip for months. It was finally decided do an x-ray and was found to have left hip was dislocated. Patient does have urine incontinence and wears diapers. Otherwise been bowel movements are good. Appetite is good. Denies any recent new trauma. Denies any chest pain or shortness of breath. Has a known history of coronary bypass 2013. In 2013 patient had a left hip arthroplasty by Dr. Christianson. Apparently in the ER dislocation was replaced October 19: Seen this afternoon. Laying in bed. Comfortable. Left leg in a brace. X-ray from today shows hip arthroplasty with hardware intact and appropriate alignment. Therapy in place. October 20: Repeat x-ray of the left hip today after some stiffness was noted the hip was negative for any dislocation. Patient is returning to her assisted living. Care was discussed with the daughter and the patient. Patient insulin and Lasix has been discontinued. Fluid restriction. Social history: Resident of [facility]. Does use a wheelchair. Stopped smoking in 2010 t. for last 1 month Physical examination: VITAL SIGNS: 98.7, 66, 20, 141 x 57, 95% room air GENERAL: BMI 19.1, laying in bed, comfortable EYES: Pupils equal. Conjunctiva anibal l. HEENT: External appearance of nose and ears normal, oral cavity grossly normal. Decreased hearing NECK: JVD not raised; masses not palpable. HEART: First and second heart sounds are normal; no edema. LUNGS: Respiratory rate normal; clear to auscultation. ABDOMEN: Soft, nontender, liver spleen not palpable, no masses palpable. PSYCH: Alert and oriented x3; mood and affect anibal l able to answer simple questions. MUSCULOSKELETAL:No Clubbing/cyanosis;muscles-grossly intact. Limited range of motion left hip. Primary OA in multiple joints. Loss of muscle mass subcutaneous fat. Brace on the left leg INVESTIGATIONS, reviewed in the clinical context: 2D echo: EF 60 to 65%. Moderately increased septal wall thickness. Renal ultrasound: Bilateral kidney calculus. Multiple gallbladder calculi. October 20: Potassium 4.2 BUN 34 creatinine 1.53 UA: Trace protein Left hip x-ray [October 19] arthroplasty October 18, 2024: White count 8.1 hemoglobin 8.8 platelet 346 sodium 139 potassium 4 BUN 49 creatinine 1.71 blood glucose 49 albumin 3.7 Left hip x-ray: Superior posterior left hip dislocation. Assessment plan: -Left hip dislocation. Prior arthroplasty in [address] Christianson. reduced in the ER. Follow with orthopedics. Note patient's had chronic pain in the left hip for months. This was discovered 2 days ago with an x-ray. PT OT For conservative management. No surgical intervention -Chronic gait dysfunction. At the baseline patient does use a wheelchair -Primary osteoarthritis multiple joints Tylenol as needed -Diabetes mellitus type 2, chronically on insulin. Uncontrolled hypoglycemia Diabetic diet with follow Accu-Cheks daily.. Lantus has been discontinued. Depending on Accu-Cheks oral hypoglycemic may be started outpatient. 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 Asymptomatic - Cholelithiasis, asymptomatic -Metabolic acidosis from CKD Add sodium bicarbonate -Mild protein calorie malnutrition Consult dietitian -Coronary artery disease with a coronary bypass in 2010. Patient currently has no cardiac symptoms Coreg Telemetry. -Chronic congestive heart failure, from diastolic dysfunction EF 60 to 65% Fluid restriction -GERD Protonix -Essential hypertension Coreg. Amlodipine. Cozaar. -Hypothyroid Synthroid 125 mcg a day -Restless leg syndrome Requip 0.5 mg nightly Patient returned to her assisted living. Care was discussed at length with the daughter. Medication changes discussed. Thank you Dr. Mirza Past Medical History Past Medical History: Coronary Artery Disease (CAD), Cancer, Heart Failure, Diabetes Mellitus, GERD/Reflux, Hyperlipidemia, Hypertension, Myocardial Infarction (LA), Osteoarthritis (OA), Thyroid Disorder Additional Past Medical History / Comment(s): has seen retinal specialist for shots. frequent urination with some leakage. uses w/cm, chronic hip dislocations Last Myocardial Infarction Date:: 2010 History of Any Multi-Drug Resistant Organisms: ESBL Year Discovered:: 07/21/23 MDRO Source:: Urine Past Surgical History: Coronary Bypass/CABG, Orthopedic Surgery Additional Past Surgical History / Comment(s): cabg 2010, cataracts. left hip replaced. surgery for breast and colon cancer. Past Anesthesia/Blood Transfusion Reactions: No Reported Reaction Additional Past Anesthesia/Blood Transfusion Reaction / Comm: no blood transfusions Past Psychological History: No Psychological Hx Reported Smoking Status: Former smoker Past Alcohol Use History: None Reported Past Drug Use History: None Reported
--- NOTE | 2024-10-25 06:52 | CDI ---
Documentation Clarification Form Date: 10/25/24 From: Brenda Willams Admit Date: 10/18/2024 08:00:00 PM Patient Name: Sarina Nicolas Visit Number: [id number] Discharge Date: 10/20/2024 12:43:00 PM ATTENTION: The Clinical Documentation Specialists (CDI) and [facility] Coding Staff appreciate your assistance in clarifying documentation. Please respond to the clarification below the line at the bottom and electronically sign. The CDI & [facility] Coding staff will review the response and follow-up if needed. Please note: Queries are made part of the Legal Health Record. If you have any questions, please contact the author of this message via ITS. Doctor/Provider: Tomás Rahman, Mild protein malnutrition is documented in your consult on 10/18 and in subsequent PNs 10/19 & 10/18 which may lack sufficient clinical evidence/support in the medical record. Additional clarification is requested. History/Risk Factors: Chronic left total hip dislocations, HTM w chronic diastolic CHF w CKD Stage 3, T2DM w CKD & hypoglycemia Clinical Indicators: Per RD notes: Nutrition intake fair, 25-50% intake, appetite good, well nourished, underweight. RDs states patient does not meet criteria for malnutrition. Treatment: Carbohydrate-modified CHO diet Please clarify if mild protein malnutrition] is a valid diagnosis? [ ] No, mild protein calorie malnutrition is ruled out [ + ] Yes, mild protein calorie malnutrition is present as evidence by (additional clinical support): See my physical exam. Notes [ ] Other (please specify diagnosis) [ ] Unable to determine MTDD
== END 2024-10-20 12:43 | disposition home or self-care (01) | DRG 560 ==
LOC: EC 12:55 → 4SSUR 20:00
PROVIDERS: ADMIT Orthopaedic Surgery Orthopaedic Surgery of the Spine; ATTEND Orthopaedic Surgery Orthopaedic Surgery of the Spine
PROC: 0SSBXZZ Reposition Left Hip Joint, External Approach (ICD-10-PCS; principal; 2024-10-18)
DX: T84.021A Dislocation of internal left hip prosthesis, initial encounter (principal); E44.1 Mild protein-calorie malnutrition; E87.20 Acidosis, unspecified; I13.0 Hypertensive heart and chronic kidney disease with heart failure and stage 1 through stage 4 chronic kidney disease, or unspecified chronic kidney disease; E11.22 Type 2 diabetes mellitus with diabetic chronic kidney disease; N18.30 Chronic kidney disease, stage 3 unspecified; E03.9 Hypothyroidism, unspecified; G25.81 Restless legs syndrome; I50.32 Chronic diastolic (congestive) heart failure; Z68.1 Body mass index [BMI] 19.9 or less, adult; Z79.4 Long term (current) use of insulin; E11.649 Type 2 diabetes mellitus with hypoglycemia without coma; G89.29 Other chronic pain; S32.599S Other specified fracture of unspecified pubis, sequela; E78.5 Hyperlipidemia, unspecified; I25.10 Atherosclerotic heart disease of native coronary artery without angina pectoris; K21.9 Gastro-esophageal reflux disease without esophagitis; M15.9 Polyosteoarthritis, unspecified; R35.0 Frequency of micturition; R32 Unspecified urinary incontinence; I25.2 Old myocardial infarction; Z79.82 Long term (current) use of aspirin; Z79.890 Hormone replacement therapy; Z79.891 Long term (current) use of opiate analgesic; Z79.899 Other long term (current) drug therapy; Z85.038 Personal history of other malignant neoplasm of large intestine; Z85.3 Personal history of malignant neoplasm of breast; Z87.891 Personal history of nicotine dependence; Z95.1 Presence of aortocoronary bypass graft; Z99.3 Dependence on wheelchair; Z86.19 Personal history of other infectious and parasitic diseases; Y79.2 Prosthetic and other implants, materials and accessory orthopedic devices associated with adverse incidents
CPT/HCPCS: 27250; 36415; 71045; 73501; 73502; 76770; 80048; 80053; 81001; 83036; 85025; 93306; 96360; 99152; 99153; 99285